=== PATIENT | female | born 1935 | race Caucasian/White ===

== ENCOUNTER 2017-04-25 06:16 | Emergency (ER) | payer MEDICARE ==
--- NOTE | 2017-04-25 06:48 | EDM.PDOC ---
ED HPI GENERAL MEDICAL PROBLEM - General Chief Complaint: General Stated Complaint: fall with dizziness Time Seen by Provider: 04/25/17 06:30 Source of Information: Reports: Patient, Family () History Limitations: Reports: No Limitations - History of Present Illness INITIAL COMMENTS - FREE TEXT/NARRATIVE: PT STATES SHE BECAME DIZZY WHILE IN BATHROOM THIS AM AND FELL TO FLOOR. HEARD HER CALLING HIM AND CAME TO HER AID. BELIEVES SHE LOWERED SELF TO FLOOR AND DID NOT FALL FROM STANDING POSITION. HAS CHRONIC DIZZINESS WITH BENDING OVER AND STANDING FROM SEATED POSITION. DENIES CP, SOB, HIP OR BACK PAIN, VISION CHANGES, OR N/V/D. Onset: Gradual Duration: Minutes: Location: Reports: Other (NO PAIN OR SIGNS OF TRAUMA) Associated Symptoms: Reports: No Other Symptoms Right Head Pain Score (Numeric/FACES): 7 - Related Data Allergies Allergy/AdvReac Type Severity Reaction Status Date / Time ciprofloxacin [From Cipro] Allergy Hives Verified 04/25/17 06:31 codeine Allergy Hives Verified 04/25/17 06:31 ibuprofen [From Motrin] Allergy Hives Verified 04/25/17 06:31 morphine Allergy Hives Verified 04/25/17 06:31 rosuvastatin Allergy Cannot Verified 04/25/17 06:31 Remember Sulfa (Sulfonamide Allergy Hives Verified 04/25/17 06:31 Antibiotics) Home Meds: Home Meds Albuterol Sulfate [Albuterol Sulfate HFA] 1 - 2 puff INH Q4HR PRN 12/09/14 [ History] Ipratropium/Albuterol Sulfate [Iprat-Albut 0.5-3(2.5) MG/3 ML] 3 ml NEB Q4H PRN 12/09/14 [History] Potassium Chloride [Klor-Con M20] 20 meq PO DAILY 12/09/14 [History] LORazepam 0.5 mg PO Q8HR PRN #1 tablet 12/24/14 [Rx] Levothyroxine [Synthroid] 50 mcg PO ACBREAKFAST 06/27/16 [History] traMADol HCl [Tramadol HCl] 50 mg PO BID PRN 06/27/16 [History] Aspirin/Acetaminophen/Caffeine [Migraine Relief Caplet] 1 tab PO BID PRN [History] Citalopram [Citalopram HBr] 40 mg PO DAILY 06/28/16 [History] Cephalexin [Keflex] 500 mg PO TID #21 cap 04/25/17 [Rx] Cetirizine [ZyrTEC] 10 mg PO DAILY PRN 04/25/17 [History] Gentamicin Sulfate 1 applic TOP DAILY 04/25/17 [History] Minocycline [Minocin] 100 mg PO BID 04/25/17 [History] Mupirocin Oint [Bactroban Oint] 1 applic TOP DAILY 04/25/17 [History] Ondansetron [IJD: Ondansetron ODT] 4 mg PO DAILY PRN 04/25/17 [History] buPROPion HCl [Wellbutrin Xl] 150 mg PO DAILY 04/25/17 [History] hydrOXYzine HCl [Atarax] 25 mg PO TID PRN 04/25/17 [History] Past Medical History HEENT History: Reports: Cataract, Impaired Vision Cardiovascular History: Reports: Blood Clots/VTE/DVT, Hypertension Respiratory History: Reports: Asthma, Bronchitis, Recurrent Gastrointestinal History: Reports: Cholelithiasis, Diverticulosis Other Gastrointestinal History: heartburn Genitourinary History: Reports: UTI, Recurrent COLLECTION ADMINISTRATOR History: Reports: Fibroids, Musculoskeletal History: Reports: Arthritis Other Musculoskeletal History: compression fx to back x2 3 months ago. Neurological History: Reports: Head Trauma Psychiatric History: Reports: Anxiety, Other (See Below) Other Psychiatric History: H/O possible depression/anxiety quit taking meds Endocrine/Metabolic History: Reports: Hypothyroidism, Obesity/BMI 30+ Dermatologic History: Reports: Other (See Below) Other Dermatologic History: dry/itchy skin. Scratch sanchez to Bilat lower ext, right upper arm, right shoulder blade, lower abdomen. shingles in 2014 - Infectious Disease History Infectious Disease History: Reports: Chicken Pox, Mumps, Shingles - Past Surgical History HEENT Surgical History: Reports: Cataract Surgery Musculoskeletal Surgical History: Reports: Other (See Below) Social & Family History - Tobacco Use Smoking Status *Q: Never Smoker Second Hand Smoke Exposure: No - Caffeine Use Caffeine Use: Reports: Soda, Tea - Alcohol Use Days Per Week of Alcohol Use: 0 - Recreational Drug Use Recreational Drug Use: No - Living Situation & Occupation Living situation: Reports: Occupation: Retired ED ROS GENERAL - Review of Systems Review Of Systems: ROS reveals no pertinent complaints other than HPI. Constitutional: Reports: No Symptoms HEENT: Reports: No Symptoms Respiratory: Reports: No Symptoms Cardiovascular: Reports: No Symptoms Endocrine: Reports: No Symptoms GI/Abdominal: Reports: No Symptoms : Reports: No Symptoms Musculoskeletal: Reports: No Symptoms Skin: Reports: No Symptoms Neurological: Reports: Dizziness. Denies: Syncope, Change in Speech Psychiatric: Reports: No Symptoms Hematologic/Lymphatic: Reports: No Symptoms Immunologic: Reports: No Symptoms ED EXAM, GENERAL - Physical Exam Exam: See Below Exam Limited By: No Limitations General Appearance: Alert, WD/WN, No Apparent Distress Nose: Normal Inspection, Normal Mucosa, No Blood Throat/Mouth: Normal Inspection, Normal Oropharynx, No Airway Compromise Head: Atraumatic, Normocephalic Neck: Normal Inspection. No: Carotid Bruit, Lymphadenopathy (L), Lymphadenopathy (R) Respiratory/Chest: No Respiratory Distress, Lungs Clear, Normal Breath Sounds Cardiovascular: Tachycardia. No: Irregularly Irregular GI/Abdominal: Normal Bowel Sounds, Soft, Non-Tender Back Exam: Normal Inspection. No: CVA Tenderness (L), CVA Tenderness (R) Extremities: Normal Inspection, No Pedal Edema Neurological: Alert, Oriented, CN II-XII Intact, Normal Cognition Psychiatric: Normal Affect, Normal Mood Skin Exam: Warm, Dry, Intact, Normal Color, No Rash Lymphatic: No Adenopathy EKG INTERPRETATION EKG Date: 04/25/17 Time: 06:20 Rhythm: Other (SINUS TACH) Comparison: NA - No Prior EKG EKG Interpretation Comments: REPEAT EKG AT 0955 SHOWS A-FIB 99HR Course - Vital Signs Last Recorded V/S: Last Vital Signs Temp 99 F 04/25/17 06:19 Pulse 134 H 04/25/17 06:19 Resp 13 04/25/17 06:19 BP 132/72 04/25/17 06:19 Pulse Ox 91 L 04/25/17 06:19 - Orders/Labs/Meds Orders: Active Orders 24 hr Category Date Time Status Chest 2V [CR] Stat Exams 04/25/17 06:38 Ordered CBC WITH AUTO DIFF [HEME] Stat Lab 04/25/17 06:37 Ordered COMPREHENSIVE METABOLIC PN,CMP [CHEM] Stat Lab 04/25/17 06:37 Ordered INR,PT,PROTHROMBIN TIME [COAG] Stat Lab 04/25/17 06:37 Ordered PTT,PARTIAL THROMBOPLSTIN TIME [COAG] Stat Lab 04/25/17 06:37 Ordered SEDIMENTATION RATE MANUAL [HEME] Stat Lab 04/25/17 06:37 Ordered T4 FREE [CHEM] Stat Lab 04/25/17 06:39 Ordered TSH ULTRASENSITIVE [CHEM] Stat Lab 04/25/17 06:39 Ordered UA W/MICROSCOPIC [URIN] Stat Lab 04/25/17 06:37 Uncollected - Radiology Interpretation Free Text/Narrative:: CXR SHOWS NO ACUTE PROCESS - Re-Assessments/Exams Free Text/Narrative Re-Assessment/Exam: 04/25/17 09:[address] REINA ABOUT ASYMPTOMATIC NEW ONSET A-FIB. WILL GIVE 25 MG METOPROLOL HERE AND D/C HOME WITH F/U TOMORROW AT [facility]. PT AFEBRILE, NONTOXIC APPEARING, VSS, HR 85-100. DENIES CP OR SOB Departure - Departure Time of Disposition: 09:43 Disposition: Home, Self-Care 01 Condition: Good Clinical Impression: Paroxysmal a-fib UTI (urinary tract infection) Qualifiers: Urinary tract infection type: site unspecified Hematuria presence: without hematuria Qualified Code(s): N39.0 - Urinary tract infection, site not specified - Discharge Information Instructions: Atrial Fibrillation, [id number], Dizziness, Vasovagal Syncope, Adult, Urinary Tract Infection, Adult Additional Instructions: FOLLOW UP WITH DR REINA AT CLINIC TOMORROW - My Orders Last 24 Hours: My Active Orders 04/25/17 06:37 CBC WITH AUTO DIFF [HEME] Stat COMPREHENSIVE METABOLIC PN,CMP [CHEM] Stat INR,PT,PROTHROMBIN TIME [COAG] Stat PTT,PARTIAL THROMBOPLSTIN TIME [COAG] Stat SEDIMENTATION RATE MANUAL [HEME] Stat UA W/MICROSCOPIC [URIN] Stat 04/25/17 06:38 Chest 2V [CR] Stat 04/25/17 06:39 T4 FREE [CHEM] Stat TSH ULTRASENSITIVE [CHEM] Stat - Assessment/Plan Last 24 Hours: My Active Orders 04/25/17 06:37 CBC WITH AUTO DIFF [HEME] Stat COMPREHENSIVE METABOLIC PN,CMP [CHEM] Stat INR,PT,PROTHROMBIN TIME [COAG] Stat PTT,PARTIAL THROMBOPLSTIN TIME [COAG] Stat SEDIMENTATION RATE MANUAL [HEME] Stat UA W/MICROSCOPIC [URIN] Stat 04/25/17 06:38 Chest 2V [CR] Stat 04/25/17 06:39 T4 FREE [CHEM] Stat TSH ULTRASENSITIVE [CHEM] Stat Assessment:: A-FIB Plan: FOLLOW UP AT [facility] TOMORROW
[2017-04-25] MEDS ORDERED: Sodium Chloride 0.9% 1,000 ML IV ONE (07:43)
[2017-04-25] MEDS ORDERED: Metoprolol Succinate 25 MG Tab.ER PO ONE (09:00)
[2017-04-25] MEDS ORDERED: Sodium Chloride 0.9% 500 ML IV SCH (09:15)
[2017-04-25] MEDS ORDERED: Aspirin 81 MG Tab.Chew PO ONE (09:21)
[2017-04-25 09:31] VITALS: BP 114/43
[2017-04-25] MEDS ORDERED: Cephalexin 250 MG Cap PO ONE (09:37)
== END 2017-04-25 10:00 | disposition home or self-care (01) ==
LOC: KA.ED 06:16
DX: I48.0 Paroxysmal atrial fibrillation (principal); N39.0 Urinary tract infection, site not specified; M19.90 Unspecified osteoarthritis, unspecified site; E66.9 Obesity, unspecified; E03.9 Hypothyroidism, unspecified; F41.9 Anxiety disorder, unspecified; I10 Essential (primary) hypertension; Z88.5 Allergy status to narcotic agent; Z88.6 Allergy status to analgesic agent; Z88.1 Allergy status to other antibiotic agents; Z88.2 Allergy status to sulfonamides; Z79.899 Other long term (current) drug therapy; Z79.82 Long term (current) use of aspirin; Z87.440 Personal history of urinary (tract) infections; Z88.8 Allergy status to other drugs, medicaments and biological substances; Z68.36 Body mass index [BMI] 36.0-36.9, adult
CPT/HCPCS: 36415; 71020; 80053; 81001; 84439; 84443; 85025; 85610; 85651; 85730; 87086; 93005; 96360; 96361; 99285; A9270; J7030; J7050; 99284

== ENCOUNTER 2017-05-26 14:20 | Emergency (ER) | payer MEDICARE ==
--- NOTE | 2017-05-26 15:08 | EDM.PDOC ---
ED HPI GENERAL MEDICAL PROBLEM - General Chief Complaint: General Stated Complaint: WEAKNESS Time Seen by Provider: 05/26/17 14:56 Source of Information: Reports: Patient, EMS Notes Reviewed, Family () History Limitations: Reports: No Limitations - History of Present Illness INITIAL COMMENTS - FREE TEXT/NARRATIVE: PATIENT IS AN 81-YEAR-OLD FEMALE WHO PRESENTS VIA EMS FOR COMPLAINT OF WEAKNESS AND SUSPECTED ALTERED MENTAL STATUS. PER , HE STATES THAT OVER THE LAST FEW NIGHTS, SHE HAS WOKEN UP IN THE MIDDLE OF THE NIGHT AND NOT BEEN COMPLETELY COHERENT. SHE WAS SLEEPING THIS AFTERNOON WHEN HER GRANDDAUGHTER CAME TO THE HOUSE. THE GRANDDAUGHTER WOKE HER UP AND SHE SEEMED CONFUSED AND COULDN'T REMEMBER THE GRANDDAUGHTER'S NAME. NO FACIAL DISFIGURATION WAS DESCRIBED BY THE FAMILY. PATIENT DENIES CHEST PAIN, SHORTNESS OF BREATH, HEADACHE, BLURRY VISION, OR NAUSEA AND VOMITING. FAMILY BRINGS UP THE CONCERN THAT MAYBE THE PATIENT NEEDS SHELTER TYPE. DR. PLATT IS HER PRIMARY PHYSICIAN AND VERY FAMILIAR WITH THE PATIENT. Onset: Gradual Quality: Reports: Other (DENIES ANY PAIN) Improves with: Reports: None Worsens with: Reports: None Associated Symptoms: Reports: No Other Symptoms - Related Data Allergies Allergy/AdvReac Type Severity Reaction Status Date / Time ciprofloxacin [From Cipro] Allergy Hives Verified 05/26/17 15:15 codeine Allergy Hives Verified 05/26/17 15:15 ibuprofen [From Motrin] Allergy Hives Verified 05/26/17 15:15 morphine Allergy Hives Verified 05/26/17 15:15 rosuvastatin Allergy Cannot Verified 05/26/17 15:15 Remember Sulfa (Sulfonamide Allergy Hives Verified 05/26/17 15:15 Antibiotics) Home Meds: Home Meds Albuterol Sulfate [Albuterol Sulfate HFA] 1 - 2 puff INH Q4HR PRN 12/09/14 [ History] Ipratropium/Albuterol Sulfate [Iprat-Albut 0.5-3(2.5) MG/3 ML] 3 ml NEB Q4H PRN 12/09/14 [History] Potassium Chloride [Klor-Con M20] 20 meq PO BID 12/09/14 [History] LORazepam 0.5 mg PO Q8HR PRN #1 tablet 12/24/14 [Rx] Levothyroxine [Synthroid] 50 mcg PO ACBREAKFAST 06/27/16 [History] traMADol HCl [Tramadol HCl] 50 mg PO BID PRN 06/27/16 [History] Aspirin/Acetaminophen/Caffeine [Migraine Relief Caplet] 1 tab PO BID PRN [History] Citalopram [Citalopram HBr] 40 mg PO DAILY 06/28/16 [History] Cephalexin [Keflex] 500 mg PO TID #21 cap 04/25/17 [Rx] Cetirizine [ZyrTEC] 10 mg PO DAILY PRN 04/25/17 [History] Gentamicin Sulfate 1 applic TOP DAILY 04/25/17 [History] Minocycline [Minocin] 100 mg PO BID 04/25/17 [History] Mupirocin Oint [Bactroban Oint] 1 applic TOP DAILY 04/25/17 [History] Ondansetron [IJD: Ondansetron ODT] 4 mg PO DAILY PRN 04/25/17 [History] buPROPion HCl [Wellbutrin Xl] 150 mg PO DAILY 04/25/17 [History] hydrOXYzine HCl [Atarax] 25 mg PO TID PRN 04/25/17 [History] Past Medical History HEENT History: Reports: Cataract, Impaired Vision Cardiovascular History: Reports: Blood Clots/VTE/DVT, Hypertension Respiratory History: Reports: Asthma, Bronchitis, Recurrent Gastrointestinal History: Reports: Cholelithiasis, Diverticulosis Other Gastrointestinal History: heartburn Genitourinary History: Reports: UTI, Recurrent COUNTER HELPER History: Reports: Fibroids, Musculoskeletal History: Reports: Arthritis Other Musculoskeletal History: compression fx to back x2 3 months ago. Neurological History: Reports: Head Trauma Psychiatric History: Reports: Anxiety, Other (See Below) Other Psychiatric History: H/O possible depression/anxiety quit taking meds Endocrine/Metabolic History: Reports: Hypothyroidism, Obesity/BMI 30+ Dermatologic History: Reports: Other (See Below) Other Dermatologic History: dry/itchy skin. Scratch sanchez to Bilat lower ext, right upper arm, right shoulder blade, lower abdomen. shingles in 2014 - Infectious Disease History Infectious Disease History: Reports: Chicken Pox, Mumps, Shingles - Past Surgical History HEENT Surgical History: Reports: Cataract Surgery Musculoskeletal Surgical History: Reports: Other (See Below) Social & Family History - Tobacco Use Smoking Status *Q: Never Smoker Second Hand Smoke Exposure: No - Caffeine Use Caffeine Use: Reports: Soda, Tea - Alcohol Use Days Per Week of Alcohol Use: 0 - Recreational Drug Use Recreational Drug Use: No - Living Situation & Occupation Living situation: Reports: Occupation: Retired ED ROS GENERAL - Review of Systems Review Of Systems: ROS reveals no pertinent complaints other than HPI. Constitutional: Reports: Malaise, Weakness, Fatigue HEENT: Reports: No Symptoms Respiratory: Reports: No Symptoms Cardiovascular: Reports: No Symptoms Endocrine: Reports: No Symptoms GI/Abdominal: Reports: No Symptoms : Reports: No Symptoms Musculoskeletal: Reports: No Symptoms Skin: Reports: No Symptoms Neurological: Reports: No Symptoms ED EXAM, GENERAL - Physical Exam Exam: See Below Exam Limited By: No Limitations General Appearance: Alert, WD/WN, No Apparent Distress Eye Exam: Bilateral Eye: Normal Inspection Nose: Normal Inspection, Normal Mucosa, No Blood Throat/Mouth: Normal Inspection, Normal Oropharynx, No Airway Compromise Head: Atraumatic, Normocephalic Respiratory/Chest: No Respiratory Distress, Lungs Clear, Normal Breath Sounds, No Accessory Muscle Use, Chest Non-Tender Cardiovascular: Regular Rate, Rhythm, No Murmur GI/Abdominal: Normal Bowel Sounds, Soft, Non-Tender Back Exam: Normal Inspection. No: CVA Tenderness (L), CVA Tenderness (R) Extremities: Normal Inspection, No Pedal Edema Neurological: Alert, Oriented, CN II-XII Intact, No Motor/Sensory Deficits Psychiatric: Normal Affect, Normal Mood Skin Exam: Warm, Dry, Other (EXTENSIVE BULLOUS PEMPHIGOID LESIONS COVER BODY) Lymphatic: No Adenopathy Course - Orders/Labs/Meds Orders: Active Orders 24 hr Category Date Time Status CBC WITH AUTO DIFF [HEME] Stat Lab 05/26/17 14:58 Ordered COMPREHENSIVE METABOLIC PN,CMP [CHEM] Stat Lab 05/26/17 14:58 Ordered SEDIMENTATION RATE MANUAL [HEME] Stat Lab 05/26/17 14:58 Ordered UA W/MICROSCOPIC [URIN] Stat Lab 05/26/17 14:58 Uncollected - Re-Assessments/Exams Free Text/Narrative Re-Assessment/Exam: 05/26/17 15:44 Patient afebrile, nontoxic appearing, vital signs stable. Discuss case with Dr. Platt. She agreed no reason to admit patient, and patient will follow- up in her office next week as scheduled. Departure - Departure Time of Disposition: 15:45 Disposition: Home, Self-Care 01 Condition: Good Clinical Impression: Depressive disorder, Bullous pemphigoid - Discharge Information Instructions: Bullous Pemphigoid, Weakness, [id number], Failure to Thrive, Adult Referrals: Latoya Avalos PA-C [Primary Care Provider] - Ana Rosa Platt MD [Physician] - Forms: ED Department Discharge Additional Instructions: FOLLOW UP AT [facility] SCHEDULED NEXT WEEK - My Orders Last 24 Hours: My Active Orders 05/26/17 14:58 CBC WITH AUTO DIFF [HEME] Stat COMPREHENSIVE METABOLIC PN,CMP [CHEM] Stat SEDIMENTATION RATE MANUAL [HEME] Stat UA W/MICROSCOPIC [URIN] Stat - Assessment/Plan Last 24 Hours: My Active Orders 05/26/17 14:58 CBC WITH AUTO DIFF [HEME] Stat COMPREHENSIVE METABOLIC PN,CMP [CHEM] Stat SEDIMENTATION RATE MANUAL [HEME] Stat UA W/MICROSCOPIC [URIN] Stat
[2017-05-26 15:14] VITALS: BP 122/53
[2017-05-26] MEDS ORDERED: Sodium Chloride 0.9% 1,000 ML IV ONE (15:17)
[2017-05-26] MEDS ORDERED: Sodium Chloride 0.9% 5 ML Syringe FLUSH PRN (15:17)
[2017-05-26] MEDS ORDERED: Sodium Chloride 0.9% 1,000 ML ONE (15:18)
== END 2017-05-26 16:30 | disposition home or self-care (01) ==
LOC: KA.ED 14:20
DX: F32.9 Major depressive disorder, single episode, unspecified (principal); L12.0 Bullous pemphigoid; I10 Essential (primary) hypertension; F41.9 Anxiety disorder, unspecified; E03.9 Hypothyroidism, unspecified; Z79.82 Long term (current) use of aspirin; Z79.899 Other long term (current) drug therapy; Z88.2 Allergy status to sulfonamides; Z88.5 Allergy status to narcotic agent; Z88.1 Allergy status to other antibiotic agents; Z88.6 Allergy status to analgesic agent; Z88.8 Allergy status to other drugs, medicaments and biological substances
CPT/HCPCS: 80053; 81001; 85025; 85651; 96360; 99285; J7030; 99284

== ENCOUNTER 2017-05-31 15:50 | Inpatient (IN) | payer MEDICARE ==
[2017-05-31] MEDS ORDERED: Ondansetron 4 MG/2 ML SDV IV PRN (15:57)
[2017-05-31] MEDS ORDERED: Sodium Chloride 0.9% 1,000 ML ONE (16:46)
[2017-05-31] MEDS ORDERED: Ondansetron 4 MG/2 ML SDV ONE (16:46)
[2017-05-31] MEDS: Sodium Chloride 0.9% 1,000 ML IV SCH (16:56)
[2017-05-31] MEDS ORDERED: traMADol 50 MG Tab PO PRN (18:00)
[2017-05-31] MEDS ORDERED: Lidocaine 2% Viscous Solution 15 ML Cup PO PRN (18:16)
[2017-05-31] MEDS ORDERED: Acetaminophen 500 MG Tab PO PRN (18:25)
[2017-05-31] MEDS: Melatonin 3 MG Tab PO SCH ×2 (19:25→20:56)
[2017-05-31] MEDS ORDERED: Loperamide 2 MG Cap PO PRN (20:10)
[2017-05-31] MEDS: Metoprolol Tartrate 25 MG Tab PO SCH (20:55)
[2017-05-31] MEDS: Apixaban 5 MG Tab PO SCH (20:55)
[2017-05-31] MEDS: Mupirocin Oint 22 GM Tube TOP SCH (20:56)
[2017-05-31] MEDS: MINOCYCLINE 100 MG PO SCH (20:56)
[2017-05-31] MEDS: Gentamicin 0.1% Crm 15 GM Tube TOP SCH (20:57)
[2017-05-31] MEDS: LORazepam 0.5 MG Tab PO PRN (21:02)
[2017-06-01] MEDS: Sodium Chloride 0.9% 1,000 ML IV SCH ×3 (00:57→18:56)
[2017-06-01] MEDS: Gentamicin 0.1% Crm 15 GM Tube TOP SCH ×2 (08:23→20:44)
[2017-06-01] MEDS: Mupirocin Oint 22 GM Tube TOP SCH ×2 (08:23→20:43)
[2017-06-01] MEDS: Omeprazole 20 MG Cap.CR PO SCH (08:24)
[2017-06-01] MEDS: Apixaban 5 MG Tab PO SCH ×2 (08:24→20:44)
[2017-06-01] MEDS: Levothyroxine 50 MCG Tab PO SCH (08:24)
[2017-06-01] MEDS: Loratadine 10 MG Tab PO SCH (08:25)
[2017-06-01] MEDS: Metoprolol Tartrate 25 MG Tab PO SCH (08:40)
[2017-06-01] MEDS: traMADol 50 MG Tab PO PRN ×3 (08:41→23:13)
[2017-06-01] MEDS: MINOCYCLINE 100 MG PO SCH ×2 (08:41→20:45)
[2017-06-01] MEDS: LORazepam 0.5 MG Tab PO PRN ×2 (08:42→20:46)
[2017-06-01] MEDS: Niacin 500 MG Tab PO SCH (08:46)
[2017-06-01] MEDS ORDERED: ARIPiprazole 5 MG Tab PO SCH (09:00)
[2017-06-01] MEDS ORDERED: predniSONE 10 MG Tab PO SCH (09:00)
--- NOTE | 2017-06-01 10:16 | PCM.PN ---
- General Info Date of Service: 06/01/17 Functional Status: Reports: Pain Controlled, Urinating. Denies: Ambulating - Review of Systems General: Reports: Weakness, Malaise. Denies: Fever, Chills, Night Sweats HEENT: Reports: No Symptoms Pulmonary: Reports: Cough Cardiovascular: Denies: Chest Pain, Edema Gastrointestinal: Denies: Diarrhea, Difficulty Swallowing, Nausea, Vomiting Genitourinary: Reports: No Symptoms Skin: Reports: Pruritis, Rash, Other (quite diffuse) Neurological: Reports: Difficulty Walking, Weakness. Denies: Confusion, Numbness, Tingling, Tremors, Trouble Speaking, Change in Speech Psychiatric: Reports: Depression (profound) - Patient Data Vitals - Most Recent: Last Vital Signs Temp 98.8 F 06/01/17 06:36 Pulse 78 06/01/17 06:36 Resp 18 06/01/17 06:36 BP 93/40 L 06/01/17 06:36 Pulse Ox 97 06/01/17 06:36 Weight - Most Recent: 196 lb 9.6 oz I&O - Last 24 Hours: Intake & Output 05/31/17 06/01/17 06/01/17 22:59 06:59 14:59 Intake Total 900 965 Output Total 300 Balance 600 965 Lab Results Last 24 Hours: Laboratory Results - last 24 hr 05/31/17 05/31/17 06/01/17 Range/Units 16:15 18:14 06:33 WBC (5.0-10.0) 10^3/uL RBC (3.80-5.50) 10^6/uL Hgb (12.0-16.0) g/dL Hct (37.0-47.0) % MCV (82.0-92.0) fL MCH (27.0-31.0) pg MCHC (32.0-36.0) g/dL RDW (11.5-14.5) % Plt Count (150-300) 10^3/uL MPV (7.4-10.4) fL Neut % (Auto) (50.0-70.0) % Lymph % (Auto) (20.0-40.0) % [place] % (Auto) (2.0-8.0) % Eos % (Auto) (1.0-3.0) % Baso % (Auto) (0.0-1.0) % Neut # (Auto) (2.5-7.0) 10^3/uL Lymph # (Auto) (1.0-4.0) 10^3/uL [place] # (Auto) (0.1-0.8) 10^3/uL Eos # (Auto) (0.1-0.3) 10^3/uL Baso # (Auto) (0.0-0.1) 10^3/uL Sodium (136-145) mmol/L Potassium (3.3-5.3) mmol/L Chloride (98-115) mmol/L Carbon Dioxide (21.0-32.0) mmol/L BUN (6-25) mg/dL Creatinine (0.51-1.17) mg/dL Est Cr Clr Drug Dosing mL/min Estimated GFR (MDRD) mL/min Glucose (70-110) mg/dL POC Glucose 108 H 53 L (74-106) mg/dl Calcium (8.7-10.3) mg/dL Total Bilirubin (0.2-1.0) mg/dL AST (15-37) U/L ALT (12-78) U/L Alkaline Phosphatase (46-116) IU/L Total Protein (6.4-8.2) g/dL Albumin (3.00-4.80) g/dL Specimen Type Urinvoid Urine Color Yellow (YELLOW) Urine Appearance Slightly cloudy H (CLEAR) Urine pH 5.0 (5.0-9.0) Ur Specific [place] 1.025 (1.005-1.030) Urine Protein Negative (NEGATIVE) mg/dL Urine Glucose (UA) Negative (NEGATIVE) mg/dL Urine Ketones Negative (NEGATIVE) mg/dL Urine Occult Blood Moderate H (NEGATIVE) Urine Nitrite Negative (NEGATIVE) Urine Bilirubin Negative (NEGATIVE) Urine Urobilinogen 0.2 (0.2-1.0) E.U./dL Ur Leukocyte Esterase Negative (NEGATIVE) Urine RBC 0-5 /HPF Urine WBC 0-5 /HPF Ur Epithelial Cells Moderate H /LPF Urine Bacteria Few (NONE TO FEW) /HPF 06/01/17 06/01/17 06/01/17 Range/Units 07:00 07:20 07:20 WBC 6.8 (5.0-10.0) 10^3/uL RBC 3.88 (3.80-5.50) 10^6/uL Hgb 11.1 L (12.0-16.0) g/dL Hct 35.3 L (37.0-47.0) % MCV 91.0 (82.0-92.0) fL MCH 28.7 (27.0-31.0) pg MCHC 31.5 L (32.0-36.0) g/dL RDW 15.7 H (11.5-14.5) % Plt Count 320 H (150-300) 10^3/uL MPV 6.9 L (7.4-10.4) fL Neut % (Auto) 63.3 (50.0-70.0) % Lymph % (Auto) 23.1 (20.0-40.0) % [place] % (Auto) 9.0 H (2.0-8.0) % Eos % (Auto) 4.3 H (1.0-3.0) % Baso % (Auto) 0.3 (0.0-1.0) % Neut # (Auto) 4.3 (2.5-7.0) 10^3/uL Lymph # (Auto) 1.6 (1.0-4.0) 10^3/uL [place] # (Auto) 0.6 (0.1-0.8) 10^3/uL Eos # (Auto) 0.3 (0.1-0.3) 10^3/uL Baso # (Auto) 0.0 (0.0-0.1) 10^3/uL Sodium 141 (136-145) mmol/L Potassium 3.7 (3.3-5.3) mmol/L Chloride 110 (98-115) mmol/L Carbon Dioxide 23.0 (21.0-32.0) mmol/L BUN 22 (6-25) mg/dL Creatinine 1.07 (0.51-1.17) mg/dL Est Cr Clr Drug Dosing 30.06 mL/min Estimated GFR (MDRD) 49 mL/min Glucose 87 (70-110) mg/dL POC Glucose 70 L (74-106) mg/dl Calcium 7.7 L (8.7-10.3) mg/dL Total Bilirubin 0.4 (0.2-1.0) mg/dL AST 30 (15-37) U/L ALT 24 (12-78) U/L Alkaline Phosphatase 98 (46-116) IU/L Total Protein 4.3 L (6.4-8.2) g/dL Albumin 1.25 L (3.00-4.80) g/dL Specimen Type Urine Color (YELLOW) Urine Appearance (CLEAR) Urine pH (5.0-9.0) Ur Specific [place] (1.005-1.030) Urine Protein (NEGATIVE) mg/dL Urine Glucose (UA) (NEGATIVE) mg/dL Urine Ketones (NEGATIVE) mg/dL Urine Occult Blood (NEGATIVE) Urine Nitrite (NEGATIVE) Urine Bilirubin (NEGATIVE) Urine Urobilinogen (0.2-1.0) E.U./dL Ur Leukocyte Esterase (NEGATIVE) Urine RBC /HPF Urine WBC /HPF Ur Epithelial Cells /LPF Urine Bacteria (NONE TO FEW) /HPF Med Orders - Current: Current Medications Acetaminophen (Tylenol Extra Strength) 500 mg PO Q4H PRN PRN Reason: Pain Last Admin: 05/31/17 19:40 Dose: 500 mg Albuterol/Ipratropium (Duoneb 3.0-0.5 Mg/3 Ml) 3 ml NEB Q4H PRN PRN Reason: Shortness of Breath Apixaban (Eliquis) 5 mg PO BID [facility] Last Admin: 06/01/17 08:24 Dose: 5 mg Aripiprazole (Abilify) 5 mg PO QAM [facility] Last Admin: 06/01/17 08:24 Dose: 5 mg Gentamicin Sulfate (Gentamicin 0.1%) 0 gm TOP BID [facility] Last Admin: 06/01/17 08:23 Dose: 1 applic Hydroxyzine HCl (Atarax) 25 mg PO Q6H PRN PRN Reason: Itching Sodium Chloride (Normal Saline) 1,000 mls @ 125 mls/hr IV ASDIRECTED [facility] Last Admin: 06/01/17 08:23 Dose: 125 mls/hr Levothyroxine Sodium (Synthroid) 100 mcg PO ACBREAKFAST [facility] Last Admin: 06/01/17 08:24 Dose: 100 mcg Lidocaine HCl (Xylocaine 2% Viscous) 15 ml PO Q4H PRN PRN Reason: Pain Loperamide HCl (Imodium) 2 mg PO Q4H PRN PRN Reason: Diarrhea Loratadine (Claritin) 10 mg PO DAILY [facility] Last Admin: 06/01/17 08:25 Dose: 10 mg Lorazepam (Ativan) 0.5 mg PO BID PRN PRN Reason: Anxiety Last Admin: 06/01/17 08:42 Dose: 0.5 mg Melatonin (Melatonin) 3 mg PO BEDTIME [facility] Last Admin: 05/31/17 20:56 Dose: 3 mg Metoprolol Tartrate (Lopressor) 12.5 mg PO BID [facility] Last Admin: 06/01/17 08:40 Dose: 12.5 mg Mupirocin (Bactroban Oint) 0 gm TOP BID [facility] Last Admin: 06/01/17 08:23 Dose: 1 applic Niacin (Niacin) 500 mg PO DAILY [facility] Last Admin: 06/01/17 08:46 Dose: 500 mg Omeprazole (Omeprazole) 20 mg PO DAILY [facility] Last Admin: 06/01/17 08:24 Dose: 20 mg Ondansetron HCl (Zofran) 4 mg IV Q6H PRN PRN Reason: Nausea/Vomiting Minocycline [Minocin ] 100 MgOwn Med * 1 each PO BID [facility] Last Admin: 06/01/17 08:41 Dose: 1 each Prednisone (Prednisone) 10 mg PO DAILY [facility] Last Admin: 06/01/17 08:24 Dose: 10 mg Senna/Docusate Sodium (Senna Plus) 1 tab PO BID PRN PRN Reason: Constipation Tramadol HCl (Ultram) 50 mg PO Q6HR PRN PRN Reason: Pain Last Admin: 06/01/17 08:41 Dose: 50 mg Discontinued Medications Sodium Chloride (Normal Saline) Confirm Administered Dose 1,000 mls @ as directed .ROUTE .STK-MED ONE Stop: 05/31/17 16:47 Last Admin: 05/31/17 18:09 Dose: Not Given Ondansetron HCl (Zofran) Confirm Administered Dose 4 mg .ROUTE .STK-MED ONE Stop: 05/31/17 16:47 Last Admin: 05/31/17 18:09 Dose: Not Given Tramadol HCl (Ultram) 50 mg PO Q8H PRN PRN Reason: Pain Last Admin: 05/31/17 18:48 Dose: 50 mg - Exam Quality Assessment: Supplemental Oxygen General: Alert, Oriented, Other (somewhat uncooperative, ) HEENT: Pupils Equal, Pupils Reactive, EOMI, Mucous Membr. Moist/[place] Neck: Supple Lungs: Clear to Auscultation, Normal Respiratory Effort Cardiovascular: Regular Rate, Regular Rhythm, Other (history of atrial fibrillation) GI/Abdominal Exam: Normal Bowel Sounds, Soft, Non-Tender, No Organomegaly, No Distention, No Abnormal Bruit, No Mass, Pelvis Stable Back Exam: No: CVA Tenderness (R) Skin: Other Psy/Mental Status: Alert, Depressed (profound depression) - Problem List Review Problem List Initiated/Reviewed/Updated: Yes - Plan Plan:: BRIEF HISTORY Patient with self-care neglect with concomittent depression was admitted due debilitation, dehydration and mostly worsening erythematous exacerbation of bullous pemphigoid. Impression/plan Bullous Pemphigoid INTEGUMENTARY ASSESSMENT Diffuse weeping, moist, prutitic vesicles and bulla with erythematous skin eruptions throughout her body including but not limited to back, breast, abdomen arms lower extremities, auricles of right ear newly developing blister forming bottom of right foot. Many blisters have burst with noticeable skin erosion with notable inflammatory hyperpigmentation--seems to be worse in flexural compartments--pictures taken. must control her associated pruritus. Clip fingernails, hydroxyzine, may have to wrap her hands to prevent her scratching. increase oral steroids to 20 mg by mouth daily since new blister formation. continue with coverage with minocycline and Niacinamide, Hibiclens shower Other chronic medical conditions History of atrial fibrillation, currently NSR, [id number], ,factor Xa inhibitor twice a day. Creatinine acceptable, MAP this morning low at 60, change metoprolol tartrate to low-dose succinatedecrease beta ilana. Medication risks versus benefit was discussed with patient/family hypotension, decreased beta ilana, change to daily for improve patient compliance. Start tomorrow. Depression, profound, monotherapy Abilify was recently increased. Dehydration, improved, Decrease fluids to 100 mL per hour encourage by mouth fluids. Will treat stomatitis Prophylaxis probiotics since on multiple Abx, Hypoalbuminemia, profound, lagging indicator, nutritional consultation. pain control, change Tylenol to scheduled. Tramadol when necessary before shower , avoid sedating opioids if all possible. hypothyroidism, on thyroid replacement therapy. Obesity, Self-care neglect, confounded by profound depression, Abilify recently increased , majorly contributory for medication compliance. Component of self-care neglect. DVT prophylaxis, cross covered with Apixaban. Creatinine acceptable immunocompromised host, corticosteroids and integumentary breakdown. CODE STATUS, DO NOT RESUSCITATE Long discussion with family, long-term plan discussed, discussion regarding skilled services possibly here with long-term plan of likely going home if PTU renders qualifying stay, although not ideal from a medical/social standpoint for her to go home. Daughter contemplating taking her to [place] to be primary caregiver, Family will discuss this with 7th grade social studies teacher. Vulnerable report is a possible option and this was discussed with family. long discussion with patient regarding treatment goals, not refusing treatments from nurses etc. today, Hibiclens shower, in chair, Monitor for systemic infections. social service, PT and nutritional consult placed.
[2017-06-01] MEDS ORDERED: predniSONE 10 MG Tab PO ONE (12:00)
[2017-06-01] MEDS: Acetaminophen 500 MG Tab PO SCH ×4 (12:06→23:13)
[2017-06-01] MEDS: B.Bifidum/B.Longum/L.Acidophilus/L.Rhamnosus (Probiotic) Cap PO SCH (12:07)
[2017-06-01] MEDS ORDERED: ARIPiprazole 5 MG Tab PO ONE (13:00)
[2017-06-01] MEDS: LIDOCAINE VISC 2% PO SCH ×9 (13:59→17:52)
[2017-06-01] MEDS: [UNRECOGNIZED DRUG - OTHER] PO SCH ×9 (13:59→17:52)
[2017-06-01] MEDS: Albuterol/Ipratropium 3.0-0.5 MG/3 ML Neb Soln NEB PRN (17:01)
[2017-06-01] MEDS: hydrOXYzine HCl 25 MG Tab PO PRN ×2 (17:28→23:13)
[2017-06-01] MEDS: Melatonin 3 MG Tab PO SCH (20:45)
[2017-06-02] MEDS: Acetaminophen 500 MG Tab PO SCH ×6 (02:59→23:18)
[2017-06-02] MEDS: Sodium Chloride 0.9% 1,000 ML IV SCH ×2 (04:49→16:37)
[2017-06-02] MEDS: hydrOXYzine HCl 25 MG Tab PO PRN (06:45)
[2017-06-02] MEDS: LIDOCAINE VISC 2% PO SCH ×6 (07:58→17:39)
[2017-06-02] MEDS: [UNRECOGNIZED DRUG - OTHER] PO SCH ×6 (07:58→17:39)
[2017-06-02] MEDS: Levothyroxine 50 MCG Tab PO SCH (07:58)
[2017-06-02] MEDS ORDERED: predniSONE 20 MG Tab PO SCH (08:00)
[2017-06-02] MEDS: MINOCYCLINE 100 MG PO SCH ×2 (09:02→20:50)
[2017-06-02] MEDS: Gentamicin 0.1% Crm 15 GM Tube TOP SCH ×2 (09:03→20:51)
[2017-06-02] MEDS: Niacin 500 MG Tab PO SCH (09:03)
[2017-06-02] MEDS: Omeprazole 20 MG Cap.CR PO SCH (09:03)
[2017-06-02] MEDS: Loratadine 10 MG Tab PO SCH (09:04)
[2017-06-02] MEDS: Apixaban 5 MG Tab PO SCH ×2 (09:04→20:49)
[2017-06-02] MEDS: ARIPiprazole 5 MG Tab PO SCH (09:05)
[2017-06-02] MEDS: Mupirocin Oint 22 GM Tube TOP SCH ×2 (09:06→20:50)
[2017-06-02] MEDS: traMADol 50 MG Tab PO PRN ×3 (09:10→22:06)
--- NOTE | 2017-06-02 09:31 | PCM.PN ---
- General Info Date of Service: 06/02/17 Functional Status: Reports: Tolerating Diet, Ambulating (Although new blister formation bottom right foot, patient is ambulatory for toileting) - Review of Systems General: Reports: Weakness. Denies: Fever, Fatigue, Malaise, Chills, Night Sweats HEENT: Reports: No Symptoms Pulmonary: Reports: No Symptoms Cardiovascular: Reports: Chest Pain (Chest wall pain right side) Gastrointestinal: Denies: Constipation, Decreased Appetite, Diarrhea, Difficulty Swallowing, Nausea, Vomiting Genitourinary: Denies: Dysuria, Frequency, Burning, Pain, Urgency, Hematuria Musculoskeletal: Reports: Other (Tenderness right-sided chest wall) Skin: Reports: Other (Diffuse weeping, moist, prutitic vesicles and bulla with erythematous skin eruptions throughout her body including but not limited to back, breast, abdomen arms lower extremities, auricles of right ear newly developing blister forming bottom of right foot. Many blisters have burst with noticeable skin erosion with notable inflammatory hyperpigmentation, exacerbated in flexural compartments) Neurological: Reports: Pre-Existing Deficit, Difficulty Walking, Weakness. Denies: Tremors, Change in Speech Psychiatric: Reports: Depression, Mood Lability. Denies: Agitation - Patient Data Vitals - Most Recent: Last Vital Signs Temp 98.4 F 06/02/17 06:58 Pulse 84 06/02/17 06:58 Resp 20 06/02/17 06:58 BP 92/60 06/02/17 06:58 Pulse Ox 95 06/02/17 09:00 Weight - Most Recent: 196 lb 9.6 oz I&O - Last 24 Hours: Intake & Output 06/01/17 06/02/17 06/02/17 22:59 06:59 14:59 Intake Total 964 1026 Output Total 600 Balance 964 426 Lab Results Last 24 Hours: Laboratory Results - last 24 hr 06/01/17 06/02/17 06/02/17 Range/Units 17:27 06:37 07:23 POC Glucose 197 H 58 L 80 (74-106) mg/dl Jame Results Last 24 Hours: Microbiology 05/31/17 16:15 Urine Culture - Preliminary Urine, Voided Med Orders - Current: Current Medications Acetaminophen (Tylenol Extra Strength) 500 mg PO Q4HR [facility] Last Admin: 06/02/17 06:46 Dose: 500 mg Albuterol/Ipratropium (Duoneb 3.0-0.5 Mg/3 Ml) 3 ml NEB Q4H PRN PRN Reason: Shortness of Breath Last Admin: 06/01/17 17:01 Dose: 3 ml Apixaban (Eliquis) 5 mg PO BID [facility] Last Admin: 06/02/17 09:04 Dose: 5 mg Aripiprazole (Abilify) 10 mg PO QAM [facility] Last Admin: 06/02/17 09:05 Dose: 10 mg Al Hydroxide/Mg Hydroxide 40 ml/ Diphenhydramine HCl 12.5 mg/ Lidocaine HCl 40 ml 0 ml PO BIDAC [facility] Last Admin: 06/02/17 07:58 Dose: 15 ml Gentamicin Sulfate (Gentamicin 0.1%) 0 gm TOP BID [facility] Last Admin: 06/02/17 09:03 Dose: 1 applic Hydroxyzine HCl (Atarax) 25 mg PO Q6H PRN PRN Reason: Itching Last Admin: 06/02/17 06:45 Dose: 25 mg Sodium Chloride (Normal Saline) 1,000 mls @ 100 mls/hr IV ASDIRECTED [facility] Last Admin: 06/02/17 04:49 Dose: 100 mls/hr Lactobacillus Acidophilus/Rhamnosus (Multi-[place] Plus) 1 cap PO DAILY@1200 [facility] Last Admin: 06/01/17 12:07 Dose: 1 cap Levothyroxine Sodium (Synthroid) 100 mcg PO ACBREAKFAST [facility] Last Admin: 06/02/17 07:58 Dose: 100 mcg Lidocaine HCl (Xylocaine 2% Viscous) 15 ml PO Q4H PRN PRN Reason: Pain Loperamide HCl (Imodium) 2 mg PO Q4H PRN PRN Reason: Diarrhea Loratadine (Claritin) 10 mg PO DAILY [facility] Last Admin: 06/02/17 09:04 Dose: 10 mg Lorazepam (Ativan) 0.5 mg PO BID PRN PRN Reason: Anxiety Last Admin: 06/01/17 20:46 Dose: 0.5 mg Melatonin (Melatonin) 3 mg PO BEDTIME [facility] Last Admin: 06/01/17 20:45 Dose: 3 mg Metoprolol Succinate (Toprol Xl) 12.5 mg PO BEDTIME [facility] Mupirocin (Bactroban Oint) 0 gm TOP BID [facility] Last Admin: 06/02/17 09:06 Dose: 1 applic Niacin (Niacin) 500 mg PO DAILY [facility] Last Admin: 06/02/17 09:03 Dose: 500 mg Omeprazole (Omeprazole) 20 mg PO DAILY [facility] Last Admin: 06/02/17 09:03 Dose: 20 mg Ondansetron HCl (Zofran) 4 mg IV Q6H PRN PRN Reason: Nausea/Vomiting Minocycline [Minocin ] 100 MgOwn Med * 1 each PO BID [facility] Last Admin: 06/02/17 09:02 Dose: 1 each Prednisone (Prednisone) 20 mg PO WITHBREAKFAST [facility] Last Admin: 06/02/17 09:06 Dose: 20 mg Senna/Docusate Sodium (Senna Plus) 1 tab PO BID PRN PRN Reason: Constipation Tramadol HCl (Ultram) 50 mg PO Q6HR PRN PRN Reason: Pain Last Admin: 06/02/17 09:10 Dose: 50 mg Discontinued Medications Acetaminophen (Tylenol Extra Strength) 500 mg PO Q4H PRN PRN Reason: Pain Last Admin: 05/31/17 19:40 Dose: 500 mg Aripiprazole (Abilify) 5 mg PO QAM [facility] Last Admin: 06/01/17 08:24 Dose: 5 mg Aripiprazole (Abilify) 5 mg PO ONETIME ONE Stop: 06/01/17 13:01 Last Admin: 06/01/17 14:06 Dose: 5 mg Al Hydroxide/Mg Hydroxide 40 ml/ Diphenhydramine HCl 12.5 mg/ Lidocaine HCl 40 ml 0 ml PO BID [facility] Last Admin: 06/01/17 14:06 Dose: 1 each Sodium Chloride (Normal Saline) 1,000 mls @ 125 mls/hr IV ASDIRECTED [facility] Last Admin: 06/01/17 08:23 Dose: 125 mls/hr Sodium Chloride (Normal Saline) Confirm Administered Dose 1,000 mls @ as directed .ROUTE .STK-MED ONE Stop: 05/31/17 16:47 Last Admin: 05/31/17 18:09 Dose: Not Given Metoprolol Tartrate (Lopressor) 12.5 mg PO BID [facility] Last Admin: 06/01/17 08:40 Dose: 12.5 mg Ondansetron HCl (Zofran) Confirm Administered Dose 4 mg .ROUTE .STK-MED ONE Stop: 05/31/17 16:47 Last Admin: 05/31/17 18:09 Dose: Not Given Prednisone (Prednisone) 10 mg PO DAILY [facility] Last Admin: 06/01/17 08:24 Dose: 10 mg Prednisone (Prednisone) 10 mg PO ONETIME ONE Stop: 06/01/17 12:01 Last Admin: 06/01/17 12:07 Dose: 10 mg Tramadol HCl (Ultram) 50 mg PO Q8H PRN PRN Reason: Pain Last Admin: 05/31/17 18:48 Dose: 50 mg - Exam Quality Assessment: Skin Breakdown (Diffuse and profound skin breakdown). No: Supplemental Oxygen General: Alert, Oriented, Cooperative, Mild Distress Lungs: Clear to Auscultation, Normal Respiratory Effort Cardiovascular: Regular Rate, Regular Rhythm GI/Abdominal Exam: Soft Extremities: Pedal Edema Peripheral Pulses: 2+: Radial (L), Radial (R) Skin: Other (Diffuse and profound skin breakdown.) Neurological: No New Focal Deficit Psy/Mental Status: Labile Mood, Depressed - Problem List Review Problem List Initiated/Reviewed/Updated: Yes - My Orders Last 24 Hours: My Active Orders 06/01/17 10:35 Sodium Chloride 0.9% [Normal Saline] 1,000 ml IV ASDIRECTED 06/01/17 11:09 Shower [May Shower] [RC] DAILY 06/01/17 11:15 Acetaminophen [Tylenol Extra Strength] 500 mg PO Q4HR 06/01/17 12:00 B.Bif/B.Long/L.Acidoph/L.Rhamn [Multi-[place] Plus] 1 cap PO DAILY@1200 06/01/17 17:30 Alum Hydrox/Mag Hydrox/Simeth [Mag-Al Plus] 40 ml diphenhydrAMINE [Benadryl] 12.5 mg Lidocaine 2% [Xylocaine 2% Viscous] 40 ml PO BIDAC 06/02/17 08:00 predniSONE 20 mg PO WITHBREAKFAST 06/02/17 08:56 Supplement (Dietary) [Dietary Supplements] [RC] TID 06/02/17 09:00 ARIPiprazole [Abilify] 10 mg PO QAM 06/02/17 21:00 Metoprolol Succinate [Toprol XL] 12.5 mg PO BEDTIME - Plan Plan:: BRIEF HISTORY Patient with self-care neglect with concomittent depression was admitted due debilitation, dehydration and mostly worsening erythematous exacerbation of bullous pemphigoid. See scanned H&P for greater details Impression/plan Bullous Pemphigoid INTEGUMENTARY ASSESSMENT Diffuse weeping, newly forming, moist, prutitic vesicles and bulla with erythematous skin eruptions throughout her body including but not limited to back, breast, abdomen, arms, lower extremities, auricles of right ear, along with newly developing blister forming bottom of right foot. Many blisters have burst with noticeable skin erosion with notable inflammatory hyperpigmentation-- seems to be worse in flexural compartments--pictures taken. must control her associated pruritus. Fingernails have been clipped, hands wrapped in gauze, hydroxyzine, yesterday increase PO prednisone to 20 mg by mouth daily since new blister formation. continue with coverage with minocycline, gentamicin and Niacinamide, will attempt Hibiclens shower Other chronic medical conditions History of atrial fibrillation, currently NSR, [id number], ,factor Xa inhibitor twice a day. Creatinine acceptable, MAP this morning low at 60, change metoprolol tartrate to low-dose succinate decrease beta ilana. Medication risks versus benefit was discussed with patient/family hypotension, decreased beta ilana, change to daily for improve patient compliance. Start tomorrow. Depression, profound, monotherapy Abilify was recently increased. Dehydration, improved, Decrease fluids to 100 mL per hour encourage by mouth fluids. Will treat stomatitis Prophylaxis probiotics since on multiple Abx, Hypoalbuminemia, profound, lagging indicator however can have high risk mortality, nutritional consultation. likely combination of protein malnutrition and degradation due to open integumentary skin due to autoimmune inflammatory state, UA neg for proteinuria, nutritional supplementation. Monitor closely for fluid accumulation/retention. Not appropriate for IV albumin pain control, change Tylenol to scheduled. Tramadol when necessary before shower , avoid sedating opioids if all possible. hypothyroidism, on thyroid replacement therapy. Obesity, Self-care neglect, confounded by profound depression, Abilify recently increased , majorly contributory for medication compliance. Component of self-care neglect. DVT prophylaxis, cross covered with Apixaban. Creatinine acceptable immunocompromised host, corticosteroids and integumentary breakdown. CODE STATUS, DO NOT RESUSCITATE Long discussion with family, long-term plan discussed, discussion regarding skilled services possibly here with long-term plan of likely going home if PTU renders qualifying stay, although not ideal from a medical/social standpoint for her to go home. Daughter contemplating taking her to [place] to be primary caregiver, Family will discuss this with high school social science teacher. Vulnerable report is a possible option and this was discussed with family. long discussion with patient regarding treatment goals, not refusing treatments from nurses etc. today, Hibiclens shower, in chair, Monitor for systemic infections. social service, PT and nutritional consult placed.
[2017-06-02] MEDS: B.Bifidum/B.Longum/L.Acidophilus/L.Rhamnosus (Probiotic) Cap PO SCH (11:21)
[2017-06-02] MEDS ORDERED: predniSONE 20 MG Tab PO ONE (15:06)
[2017-06-02] MEDS: Melatonin 3 MG Tab PO SCH (20:49)
[2017-06-02] MEDS ORDERED: Metoprolol Succinate 25 MG Tab.ER PO SCH (21:00)
[2017-06-02] MEDS: LORazepam 0.5 MG Tab PO PRN (22:06)
[2017-06-03] MEDS: Acetaminophen 500 MG Tab PO SCH ×6 (03:17→22:35)
[2017-06-03] MEDS: Sodium Chloride 0.9% 1,000 ML IV SCH (06:49)
[2017-06-03 07:44] LABS: CHLORIDE,CL 110 mmol/L (98-115); SODIUM,NA 141 mmol/L (136-145)
[2017-06-03] MEDS: Levothyroxine 50 MCG Tab PO SCH (09:09)
[2017-06-03] MEDS: LIDOCAINE VISC 2% PO SCH ×6 (09:10→17:29)
[2017-06-03] MEDS: [UNRECOGNIZED DRUG - OTHER] PO SCH ×6 (09:10→17:29)
[2017-06-03] MEDS: ARIPiprazole 5 MG Tab PO SCH (09:10)
[2017-06-03] MEDS: Niacin 500 MG Tab PO SCH (09:11)
[2017-06-03] MEDS: Apixaban 5 MG Tab PO SCH ×2 (09:11→20:59)
[2017-06-03] MEDS: Loratadine 10 MG Tab PO SCH (09:11)
[2017-06-03] MEDS: Omeprazole 20 MG Cap.CR PO SCH (09:11)
[2017-06-03] MEDS: MINOCYCLINE 100 MG PO SCH ×2 (09:12→21:00)
[2017-06-03] MEDS: predniSONE 20 MG Tab PO SCH (09:12)
[2017-06-03] MEDS: traMADol 50 MG Tab PO PRN ×2 (09:13→21:01)
[2017-06-03] MEDS: Mupirocin Oint 22 GM Tube TOP SCH ×2 (09:21→09:41)
--- NOTE | 2017-06-03 09:28 | PCM.PN ---
- General Info Date of Service: 06/03/17 Functional Status: Reports: Tolerating Diet, Ambulating (In room ambulating with assistance), New Symptoms (New symptoms include right sidewall chest pain on palpation--started upon being picked up by son), Incentive Spirometry. Denies: Pain Controlled - Review of Systems General: Reports: Weakness. Denies: Fever HEENT: Reports: No Symptoms Pulmonary: Reports: No Symptoms Cardiovascular: Reports: Edema Gastrointestinal: Denies: Abdominal Pain, Constipation, Decreased Appetite, Diarrhea, Difficulty Swallowing, Nausea, Vomiting Genitourinary: Reports: No Symptoms Musculoskeletal: Reports: Other (Right-sided rib pain) Skin: Reports: Other (Diffuse weeping, moist, prutitic vesicles and bulla with erythematous skin eruptions throughout her body including but not limited to back, breast, abdomen arms lower extremities, auricles of right ear newly developing blister forming bottom of right foot. Many blisters have burst with noticeable skin erosion with notable inflammatory hyperpigmentation--seems to be worse in flexural compartments--however seems to be drying up and some improvement) Neurological: Reports: Pre-Existing Deficit, Difficulty Walking, Weakness, Gait Disturbance. Denies: Numbness, Paresthesia, Tingling, Tremors, Trouble Speaking , Change in Speech Psychiatric: Reports: Mood Lability - Patient Data Vitals - Most Recent: Last Vital Signs Temp 98.6 F 06/03/17 06:20 Pulse 89 06/03/17 06:20 Resp 20 06/03/17 06:20 BP 110/66 06/03/17 06:20 Pulse Ox 95 06/03/17 06:20 Weight - Most Recent: 196 lb 9.6 oz I&O - Last 24 Hours: Intake & Output 06/02/17 06/03/17 06/03/17 22:59 06:59 14:59 Intake Total 959 551 Output Total 575 300 Balance 384 251 Lab Results Last 24 Hours: Laboratory Results - last 24 hr 06/02/17 06/03/17 06/03/17 Range/Units 17:03 06:48 07:15 WBC (5.0-10.0) 10^3/uL RBC (3.80-5.50) 10^6/uL Hgb (12.0-16.0) g/dL Hct (37.0-47.0) % MCV (82.0-92.0) fL MCH (27.0-31.0) pg MCHC (32.0-36.0) g/dL RDW (11.5-14.5) % Plt Count (150-300) 10^3/uL MPV (7.4-10.4) fL Neut % (Auto) (50.0-70.0) % Lymph % (Auto) (20.0-40.0) % Chase % (Auto) (2.0-8.0) % Eos % (Auto) (1.0-3.0) % Baso % (Auto) (0.0-1.0) % Neut # (Auto) (2.5-7.0) 10^3/uL Lymph # (Auto) (1.0-4.0) 10^3/uL Chase # (Auto) (0.1-0.8) 10^3/uL Eos # (Auto) (0.1-0.3) 10^3/uL Baso # (Auto) (0.0-0.1) 10^3/uL Sodium 141 (136-145) mmol/L Potassium 3.8 (3.3-5.3) mmol/L Chloride 110 (98-115) mmol/L Carbon Dioxide 22.1 (21.0-32.0) mmol/L BUN 19 (6-25) mg/dL Creatinine 0.69 (0.51-1.17) mg/dL Est Cr Clr Drug Dosing 46.62 mL/min Estimated GFR (MDRD) > 60 mL/min Glucose 94 (70-110) mg/dL POC Glucose 180 H 93 (74-106) mg/dl Calcium 7.5 L (8.7-10.3) mg/dL Total Bilirubin 0.2 (0.2-1.0) mg/dL AST 24 (15-37) U/L ALT 31 (12-78) U/L Alkaline Phosphatase 115 (46-116) IU/L Total Protein 4.5 L (6.4-8.2) g/dL Albumin 1.25 L (3.00-4.80) g/dL 06/03/17 Range/Units 07:15 WBC 5.4 (5.0-10.0) 10^3/uL RBC 3.80 (3.80-5.50) 10^6/uL Hgb 11.0 L (12.0-16.0) g/dL Hct 34.7 L (37.0-47.0) % MCV 91.2 (82.0-92.0) fL MCH 28.8 (27.0-31.0) pg MCHC 31.6 L (32.0-36.0) g/dL RDW 16.0 H (11.5-14.5) % Plt Count 319 H (150-300) 10^3/uL MPV 7.1 L (7.4-10.4) fL Neut % (Auto) 72.8 H (50.0-70.0) % Lymph % (Auto) 19.1 L (20.0-40.0) % Chase % (Auto) 7.5 (2.0-8.0) % Eos % (Auto) 0.2 L (1.0-3.0) % Baso % (Auto) 0.4 (0.0-1.0) % Neut # (Auto) 4.0 (2.5-7.0) 10^3/uL Lymph # (Auto) 1.0 (1.0-4.0) 10^3/uL Chase # (Auto) 0.4 (0.1-0.8) 10^3/uL Eos # (Auto) 0.0 L (0.1-0.3) 10^3/uL Baso # (Auto) 0.0 (0.0-0.1) 10^3/uL Sodium (136-145) mmol/L Potassium (3.3-5.3) mmol/L Chloride (98-115) mmol/L Carbon Dioxide (21.0-32.0) mmol/L BUN (6-25) mg/dL Creatinine (0.51-1.17) mg/dL Est Cr Clr Drug Dosing mL/min Estimated GFR (MDRD) mL/min Glucose (70-110) mg/dL POC Glucose (74-106) mg/dl Calcium (8.7-10.3) mg/dL Total Bilirubin (0.2-1.0) mg/dL AST (15-37) U/L ALT (12-78) U/L Alkaline Phosphatase (46-116) IU/L Total Protein (6.4-8.2) g/dL Albumin (3.00-4.80) g/dL Jame Results Last 24 Hours: Microbiology 06/03/17 08:00 Stool for WBCs - Final Stool / Feces - Stool, Formed NO WBC SEEN 06/03/17 08:00 Clostridium difficile Toxin A&B (M) - Final Stool / Feces - Stool, Formed NEGATIVE CDIFF TOXIN 05/31/17 16:15 Wound Culture - Final Abdomen - Right Lower Staphylococcus Aureus 05/31/17 16:15 Urine Culture - Preliminary Urine, Voided Proteus Mirabilis Med Orders - Current: Current Medications Acetaminophen (Tylenol Extra Strength) 500 mg PO Q4HR [facility] Last Admin: 06/03/17 06:48 Dose: 500 mg Albuterol/Ipratropium (Duoneb 3.0-0.5 Mg/3 Ml) 3 ml NEB Q4H PRN PRN Reason: Shortness of Breath Last Admin: 06/01/17 17:01 Dose: 3 ml Apixaban (Eliquis) 5 mg PO BID [facility] Last Admin: 06/02/17 20:49 Dose: 5 mg Aripiprazole (Abilify) 10 mg PO QAM [facility] Last Admin: 06/02/17 09:05 Dose: 10 mg Al Hydroxide/Mg Hydroxide 40 ml/ Diphenhydramine HCl 12.5 mg/ Lidocaine HCl 40 ml 0 ml PO BIDAC [facility] Last Admin: 06/02/17 17:39 Dose: 15 ml Gentamicin Sulfate (Gentamicin 0.1%) 0 gm TOP BID [facility] Last Admin: 06/02/17 20:51 Dose: 1 applic Hydroxyzine HCl (Atarax) 25 mg PO Q6H PRN PRN Reason: Itching Last Admin: 06/02/17 06:45 Dose: 25 mg Sodium Chloride (Normal Saline) 1,000 mls @ 75 mls/hr IV ASDIRECTED [facility] Last Admin: 06/03/17 06:49 Dose: 75 mls/hr Lactobacillus Acidophilus/Rhamnosus (Multi-Anne Marie Plus) 1 cap PO DAILY@1200 [facility] Last Admin: 06/02/17 11:21 Dose: 1 cap Levothyroxine Sodium (Synthroid) 100 mcg PO ACBREAKFAST [facility] Last Admin: 06/02/17 07:58 Dose: 100 mcg Lidocaine HCl (Xylocaine 2% Viscous) 15 ml PO Q4H PRN PRN Reason: Pain Loperamide HCl (Imodium) 2 mg PO Q4H PRN PRN Reason: Diarrhea Loratadine (Claritin) 10 mg PO DAILY [facility] Last Admin: 06/02/17 09:04 Dose: 10 mg Lorazepam (Ativan) 0.5 mg PO BID PRN PRN Reason: Anxiety Last Admin: 06/02/17 22:06 Dose: 0.5 mg Melatonin (Melatonin) 3 mg PO BEDTIME [facility] Last Admin: 06/02/17 20:49 Dose: 3 mg Metoprolol Succinate (Toprol Xl) 12.5 mg PO BEDTIME [facility] Mupirocin (Bactroban Oint) 0 gm TOP BID [facility] Last Admin: 06/02/17 20:50 Dose: 1 applic Niacin (Niacin) 500 mg PO DAILY [facility] Last Admin: 06/02/17 09:03 Dose: 500 mg Omeprazole (Omeprazole) 20 mg PO DAILY [facility] Last Admin: 06/02/17 09:03 Dose: 20 mg Ondansetron HCl (Zofran) 4 mg IV Q6H PRN PRN Reason: Nausea/Vomiting Minocycline [Minocin ] 100 MgOwn Med * 1 each PO BID [facility] Last Admin: 06/02/17 20:50 Dose: 1 each Prednisone (Prednisone) 50 mg PO WITHBREAKFAST [facility] Stop: 06/16/17 08:01 Prednisone (Prednisone) 40 mg PO WITHBREAKFAST [facility] Stop: 06/23/17 08:01 Prednisone (Prednisone) 60 mg PO WITHBREAKFAST [facility] Stop: 06/09/17 08:01 Senna/Docusate Sodium (Senna Plus) 1 tab PO BID PRN PRN Reason: Constipation Tramadol HCl (Ultram) 50 mg PO Q6HR PRN PRN Reason: Pain Last Admin: 06/02/17 22:06 Dose: 50 mg Discontinued Medications Acetaminophen (Tylenol Extra Strength) 500 mg PO Q4H PRN PRN Reason: Pain Last Admin: 05/31/17 19:40 Dose: 500 mg Aripiprazole (Abilify) 5 mg PO QAM [facility] Last Admin: 06/01/17 08:24 Dose: 5 mg Aripiprazole (Abilify) 5 mg PO ONETIME ONE Stop: 06/01/17 13:01 Last Admin: 06/01/17 14:06 Dose: 5 mg Al Hydroxide/Mg Hydroxide 40 ml/ Diphenhydramine HCl 12.5 mg/ Lidocaine HCl 40 ml 0 ml PO BID [facility] Last Admin: 06/01/17 14:06 Dose: 1 each Sodium Chloride (Normal Saline) 1,000 mls @ 125 mls/hr IV ASDIRECTED [facility] Last Admin: 06/01/17 08:23 Dose: 125 mls/hr Sodium Chloride (Normal Saline) Confirm Administered Dose 1,000 mls @ as directed .ROUTE .STK-MED ONE Stop: 05/31/17 16:47 Last Admin: 05/31/17 18:09 Dose: Not Given Sodium Chloride (Normal Saline) 1,000 mls @ 100 mls/hr IV ASDIRECTED [facility] Last Admin: 06/02/17 04:49 Dose: 100 mls/hr Metoprolol Tartrate (Lopressor) 12.5 mg PO BID [facility] Last Admin: 06/01/17 08:40 Dose: 12.5 mg Ondansetron HCl (Zofran) Confirm Administered Dose 4 mg .ROUTE .STK-MED ONE Stop: 05/31/17 16:47 Last Admin: 05/31/17 18:09 Dose: Not Given Prednisone (Prednisone) 10 mg PO DAILY [facility] Last Admin: 06/01/17 08:24 Dose: 10 mg Prednisone (Prednisone) 20 mg PO WITHBREAKFAST [facility] Last Admin: 06/02/17 09:06 Dose: 20 mg Prednisone (Prednisone) 10 mg PO ONETIME ONE Stop: 06/01/17 12:01 Last Admin: 06/01/17 12:07 Dose: 10 mg Prednisone (Prednisone) 40 mg PO ONETIME ONE Stop: 06/02/17 15:07 Last Admin: 06/02/17 15:57 Dose: 40 mg Tramadol HCl (Ultram) 50 mg PO Q8H PRN PRN Reason: Pain Last Admin: 05/31/17 18:48 Dose: 50 mg - Exam Quality Assessment: Skin Breakdown. No: Supplemental Oxygen (Now off oxygen) General: Alert, Oriented, Cooperative. No: Mild Distress, Moderate Distress, Severe Distress, Sedated Neck: Supple Lungs: Clear to Auscultation, Normal Respiratory Effort Cardiovascular: Regular Rate, Regular Rhythm GI/Abdominal Exam: Soft (Female) Exam: Deferred Back Exam: Other (Tenderness right rib cage flank). No: CVA Tenderness (L), CVA Tenderness (R) Extremities: Pedal Edema Skin: Other (Diffuse weeping, moist, prutitic vesicles and bulla with erythematous skin eruptions throughout her body including but not limited to back, breast, abdomen arms lower extremities, auricles of right ear newly developing blister forming bottom of right foot. Many blisters have burst with noticeable skin erosion with notable inflammatory hyperpigmentation--seems to be worse in flexural compartments) Neurological: Normal Speech Psy/Mental Status: Alert, Labile Mood, Anxious - Problem List Review Problem List Initiated/Reviewed/Updated: Yes - My Orders Last 24 Hours: My Active Orders 06/02/17 08:56 Supplement (Dietary) [Dietary Supplements] [RC] TID 06/02/17 09:00 ARIPiprazole [Abilify] 10 mg PO QAM 06/02/17 09:45 Sodium Chloride 0.9% [Normal Saline] 1,000 ml IV ASDIRECTED 06/02/17 21:00 Metoprolol Succinate [Toprol XL] 12.5 mg PO BEDTIME 06/03/17 09:00 predniSONE 60 mg PO WITHBREAKFAST 06/10/17 09:00 predniSONE 50 mg PO WITHBREAKFAST 06/17/17 09:00 predniSONE 40 mg PO WITHBREAKFAST - Plan Plan:: BRIEF HISTORY Patient with self-care neglect with concomittent depression was admitted due debilitation, dehydration and mostly worsening erythematous exacerbation of bullous pemphigoid along with maceration with new forming blisters. See scanned H&P for greater details Impression/plan Bullous Pemphigoid INTEGUMENTARY ASSESSMENT Diffuse weeping, newly formrd bottom of her right foot, moist, prutitic vesicles and bulla with erythematous skin eruptions throughout her body including but not limited to back, breast, abdomen, arms, lower extremities, auricles of right ear and oral cavity. Many blisters have burst with noticeable skin erosion with notable inflammatory hyperpigmentation--seems to be worse in flexural compartments, see scanned pictures for initial presentation. Controlling of her associated pruritus. Fingernails have been clipped, hands wrapped in gauze as needed, posterior reminder not to scratch, hydroxyzine, prednisone increased 60 mg daily, taper by 10 mg weekly. Preventing associated complications such as worsening osteoporosis or GI ulceration. Since topical cream extremely nursing intensive will change to daily treatments of topical creams however continue with minocycline. Discontinue Hibiclens shower, daily shower antibacterial soap. History of atrial fibrillation, currently NSR, [id number], factor Xa inhibitor twice a day. Creatinine acceptable, MAP has been running low however improved, changed metoprolol tartrate to low-dose succinate for improved compliance however holding parameters for now. Caution with family on admission regarding risks versus benefit for anticoagulation medication Depression, profound on admission and the past few weeks, monotherapy Abilify was recently increased--some improvement noticed. May consider combo therapy Hypoalbuminemia, profound, lagging indicator, likely combination of protein malnutrition and degradation due to autoimmune inflammatory state, UA neg for proteinuria, nutritional supplementation. Monitor closely for fluid accumulation /retention, assess LFTs Dehydration, much improved, taking adequate oral, discontinue IV due to high risk of infection d/t integumentary breakdown. Continue to treat stomatitis Prophylaxis probiotics since on multiple Abx, Hypotension, improvement, decreased beta ilana, change to daily for improve patient compliance. Holding for now. Hypocalcemia; Pseudo, nutritional consultation with supppementation dietary. Asympomatic Bacteruria; monitor for sx, no treatment for now with abx. Anemia; microcytic, normochromic, anisocytosis, hold off of full workup for now. Reactive thrombocytosis, neutrophia very mild, no fever, mild, monitor. Pain Control stategies; change Tylenol to scheduled. Tramadol when necessary prior to shower/activities/PT etc. Hypothyroidism, on thyroid replacement therapy. Obesity, confounding. Osteoporosis, I do not see a DEXA scan for BMD, however since increasing prednisone will need improved protection, maximize calcium/vitamin D3, consider biophasphonate. Self-care neglect, confounded by profound depression, Abilify recently increased , majorly contributory for medication compliance. Component of self-care neglect. GI prophylaxis; increasing steroids--will add antihistamine ilana H2. DVT prophylaxis, cross covered with Apixaban. Creatinine acceptable Immunocompromised host, corticosteroids and integumentary breakdown. Consultations: Dermatology [facility]. Recommend 60 mg of prednisone per day with stepdown therapy of 10 mg per week. They will see her as outpatient once she reaches 40 mg per day. CODE STATUS, DO NOT RESUSCITATE Overall plan and discharge planning Long discussion with family and patient, long-term plan discussed, best plan for her would be discharged in care of her daughter and relocate to [place] and establish care with tertiary care center nearby with social director, home health care and a dermatology. Patient's daughter Brianne in agreement with plan--patient contemplating however not ideal to discharge in care of her spouse here in [place] locally due to descreased ability for support/ care that she may need at home and the patient's noncompliance at home. I stressed to patient today that she is not a candidate to go home here in [place] with spouse. She qualifies for acute care until WednesdayJune 07, then patient will be placed in swing bed therapy here as long as she qualifies for PT.
[2017-06-03] MEDS: Gentamicin 0.1% Crm 15 GM Tube TOP SCH ×2 (09:42→11:08)
[2017-06-03] MEDS: B.Bifidum/B.Longum/L.Acidophilus/L.Rhamnosus (Probiotic) Cap PO SCH (11:50)
[2017-06-03] MEDS: Melatonin 3 MG Tab PO SCH (20:59)
[2017-06-03] MEDS: Mupirocin Crm 15 GM Tube TOP SCH (21:00)
[2017-06-03] MEDS: LORazepam 0.5 MG Tab PO PRN (21:02)
[2017-06-03] MEDS: Calcium Citrate/Vitamin D3 315 MG-250 Unit Tab PO SCH (21:03)
[2017-06-03] MEDS: hydrOXYzine HCl 25 MG Tab PO PRN (23:12)
[2017-06-04] MEDS: traMADol 50 MG Tab PO PRN ×2 (02:10→08:35)
[2017-06-04] MEDS: Acetaminophen 500 MG Tab PO SCH ×6 (03:54→22:11)
[2017-06-04] MEDS: hydrOXYzine HCl 25 MG Tab PO PRN (06:46)
[2017-06-04] MEDS: Levothyroxine 50 MCG Tab PO SCH (07:48)
[2017-06-04] MEDS: LIDOCAINE VISC 2% PO SCH ×6 (07:56→17:38)
[2017-06-04] MEDS: [UNRECOGNIZED DRUG - OTHER] PO SCH ×6 (07:56→17:38)
[2017-06-04] MEDS: ARIPiprazole 5 MG Tab PO SCH (08:09)
[2017-06-04] MEDS: Loratadine 10 MG Tab PO SCH (08:10)
[2017-06-04] MEDS: predniSONE 20 MG Tab PO SCH (08:10)
[2017-06-04] MEDS: Apixaban 5 MG Tab PO SCH ×2 (08:10→21:00)
[2017-06-04] MEDS: Niacin 500 MG Tab PO SCH (08:11)
[2017-06-04] MEDS: MINOCYCLINE 100 MG PO SCH ×2 (08:12→21:00)
[2017-06-04] MEDS: Calcium Citrate/Vitamin D3 315 MG-250 Unit Tab PO SCH ×2 (08:16→21:00)
[2017-06-04] MEDS: Gentamicin 0.1% Crm 15 GM Tube TOP SCH (08:36)
[2017-06-04] MEDS ORDERED: Cholecalciferol (Vitamin D3) 1,000 Unit Tab PO SCH (09:00)
--- NOTE | 2017-06-04 11:22 | PN ---
06/04/2017 PATIENT NAME: IRENE FLORES SUBJECTIVE: The patient is an 82-year-old patient, who has been admitted to the hospital because of problems of dehydration and exacerbation of pemphigoid. The patient has been seen in the room today. She is alert, well oriented to space, time, and person, and she is answering questions appropriately. The patient states that the skin lesions are improving. She is still developing a few new ones, but most of the old ones are drying up. OBJECTIVE: VITAL SIGNS: Her vital signs were as follows: Temperature 98.5, blood pressure is 114/69, oxygen saturation 94%, pulse is 99. Her intake and output are satisfactory. GENERAL: Examination reveals her to be alert, in no immediate distress. HEENT: Head is negative. Face is slightly puffy. Mouth, the patient's mucous membranes are slightly dry. No new lesions are noted in the mouth. SKIN: The patient does have drying lesions all over the body. These are definitely better than yesterday and the day before that. These are present over the breast, abdomen, arms and back etc. Also on the soles of the feet. HEART: Regular rhythm. No thrills or murmurs. LUNGS: Clinically clear to percussion and auscultation. ABDOMEN: Soft. No masses. No tenderness. EXTREMITIES: Normal otherwise. FINAL DIAGNOSES: 1. Bullous pemphigoid. This is improved since the prednisone dosage has been increased. We did secure dermatological consultation from [facility]. Prednisone is currently at 60 mg daily. This has caused improvement in her symptomatology. It will be reduced by 10 mg weekly. 2. Hypotension is stable. 3. Hypocalcemia probably secondary to hypoalbuminemia. 4. Albumin level is low at 1.25. Trying to increase her protein intake. The patient is a poor eater. She does not like meat and eggs. This makes it difficult to increase her protein content of her diet. 5. Anemia. This may be due to chronic disease as it is normochromic. 6. Asymptomatic bacteriuria. No treatment. 7. Reactive thrombocytosis. No treatment at this time. 8. Hypothyroidism, stable. Will follow up in a.m. Last laboratory data performed on 06/03/2017 showed normal electrolytes. /[id number]/MODL MTDD
[2017-06-04] MEDS: B.Bifidum/B.Longum/L.Acidophilus/L.Rhamnosus (Probiotic) Cap PO SCH (11:26)
[2017-06-04] MEDS: Melatonin 3 MG Tab PO SCH (21:00)
[2017-06-04] MEDS: Mupirocin Crm 15 GM Tube TOP SCH (21:32)
[2017-06-04] MEDS ORDERED: Mupirocin Oint 22 GM Tube TOP ONE (21:32)
[2017-06-04] MEDS: LORazepam 0.5 MG Tab PO PRN (22:11)
[2017-06-05] MEDS: Acetaminophen 500 MG Tab PO SCH ×6 (03:09→22:25)
[2017-06-05] MEDS: traMADol 50 MG Tab PO PRN ×2 (03:23→20:22)
[2017-06-05] MEDS: Levothyroxine 50 MCG Tab PO SCH (07:45)
[2017-06-05] MEDS: [UNRECOGNIZED DRUG - OTHER] PO SCH ×6 (07:47→17:44)
[2017-06-05] MEDS: LIDOCAINE VISC 2% PO SCH ×6 (07:47→17:44)
[2017-06-05] MEDS: Loratadine 10 MG Tab PO SCH (08:47)
[2017-06-05] MEDS: Calcium Citrate/Vitamin D3 315 MG-250 Unit Tab PO SCH ×2 (08:47→20:23)
[2017-06-05] MEDS: predniSONE 20 MG Tab PO SCH (08:47)
[2017-06-05] MEDS: Apixaban 5 MG Tab PO SCH ×2 (08:48→20:23)
[2017-06-05] MEDS: Niacin 500 MG Tab PO SCH (08:48)
[2017-06-05] MEDS: ARIPiprazole 5 MG Tab PO SCH (08:48)
[2017-06-05] MEDS: Gentamicin 0.1% Crm 15 GM Tube TOP SCH (08:49)
[2017-06-05] MEDS: MINOCYCLINE 100 MG PO SCH ×2 (08:49→20:23)
[2017-06-05] MEDS: Ondansetron 4 MG Tab.DIS PO PRN ×2 (08:51→19:37)
--- NOTE | 2017-06-05 10:26 | PCM.PN ---
- General Info Date of Service: 06/05/17 Functional Status: Reports: Other (She is wanting to be in bed as much as allowed. Has walked only to the bathroom in her room.) - Review of Systems General: Reports: Weakness HEENT: Reports: No Symptoms Pulmonary: Reports: Other (Pain with deep breaths) Cardiovascular: Reports: No Symptoms Gastrointestinal: Reports: Abdominal Pain (Reports long history of pain with abdominal palpation. Last BM yesterday.), Decreased Appetite (There are very few foods she likes. Family has helped identify some protein foods she will eat : peanutbutter and pickle sandwich, chile, cheese on toast, chocolate ensure, breeze.) Genitourinary: Reports: No Symptoms Musculoskeletal: Reports: Other (generalized weakness) Skin: Reports: Other (multiple pemphigus lesions throughout body) Neurological: Reports: No Symptoms Psychiatric: Reports: Other (alert and oriented) - Patient Data Vitals - Most Recent: Last Vital Signs Temp 97.2 F 06/05/17 06:52 Pulse 95 06/05/17 06:52 Resp 18 06/05/17 06:52 BP 122/78 06/05/17 06:52 Pulse Ox 95 06/05/17 06:52 Weight - Most Recent: 196 lb 9.6 oz I&O - Last 24 Hours: Intake & Output 06/04/17 06/05/17 06/05/17 22:59 06:59 14:59 Intake Total 680 250 Balance 680 250 Lab Results Last 24 Hours: Laboratory Results - last 24 hr 06/04/17 06/05/17 06/05/17 Range/Units 17:36 06:29 07:04 POC Glucose 171 H 54 L 78 (74-106) mg/dl Jame Results Last 24 Hours: Microbiology 06/03/17 08:00 Stool Aerobic Culture - Preliminary Stool / Feces Med Orders - Current: Current Medications Acetaminophen (Tylenol Extra Strength) 500 mg PO Q4HR [facility] Last Admin: 06/05/17 06:53 Dose: 500 mg Albuterol/Ipratropium (Duoneb 3.0-0.5 Mg/3 Ml) 3 ml NEB Q4H PRN PRN Reason: Shortness of Breath Last Admin: 06/01/17 17:01 Dose: 3 ml Apixaban (Eliquis) 5 mg PO BID [facility] Last Admin: 06/05/17 08:48 Dose: 5 mg Aripiprazole (Abilify) 10 mg PO QAM [facility] Last Admin: 06/05/17 08:48 Dose: 10 mg Calcium Citrate (Calcium Citrate + D) 2 tab PO BID [facility] Last Admin: 06/05/17 08:47 Dose: 2 tab Al Hydroxide/Mg Hydroxide 40 ml/ Diphenhydramine HCl 12.5 mg/ Lidocaine HCl 40 ml 0 ml PO BIDAC [facility] Last Admin: 06/05/17 07:47 Dose: 15 ml Gentamicin Sulfate (Gentamicin 0.1%) 1 gm TOP DAILY [facility] Last Admin: 06/05/17 08:49 Dose: 1 applic Hydroxyzine HCl (Atarax) 25 mg PO Q6H PRN PRN Reason: Itching Last Admin: 06/04/17 06:46 Dose: 25 mg Lactobacillus Acidophilus/Rhamnosus (Multi-Anne Marie Plus) 1 cap PO DAILY@1200 [facility] Last Admin: 06/04/17 11:26 Dose: 1 cap Levothyroxine Sodium (Synthroid) 100 mcg PO ACBREAKFAST [facility] Last Admin: 06/05/17 07:45 Dose: 100 mcg Lidocaine HCl (Xylocaine 2% Viscous) 15 ml PO Q4H PRN PRN Reason: Pain Loperamide HCl (Imodium) 2 mg PO Q4H PRN PRN Reason: Diarrhea Loratadine (Claritin) 10 mg PO DAILY [facility] Last Admin: 06/05/17 08:47 Dose: 10 mg Lorazepam (Ativan) 0.5 mg PO BID PRN PRN Reason: Anxiety Last Admin: 06/04/17 22:11 Dose: 0.5 mg Melatonin (Melatonin) 3 mg PO BEDTIME [facility] Last Admin: 06/04/17 21:00 Dose: 3 mg Metoprolol Succinate (Toprol Xl) 12.5 mg PO BEDTIME [facility] Mupirocin (Bactroban Crm) 1 gm TOP BEDTIME [facility] Last Admin: 06/04/17 21:32 Dose: 1 applic Niacin (Niacin) 500 mg PO DAILY [facility] Last Admin: 06/05/17 08:48 Dose: 500 mg Ondansetron HCl (Zofran Odt) 4 mg PO Q6H PRN PRN Reason: Nausea/Vomiting Last Admin: 06/05/17 08:51 Dose: 4 mg Minocycline [Minocin ] 100 MgOwn Med * 1 each PO BID [facility] Last Admin: 06/05/17 08:49 Dose: 1 each Prednisone (Prednisone) 50 mg PO WITHBREAKFAST [facility] Stop: 06/16/17 08:01 Prednisone (Prednisone) 40 mg PO WITHBREAKFAST [facility] Stop: 06/23/17 08:01 Prednisone (Prednisone) 60 mg PO WITHBREAKFAST [facility] Stop: 06/09/17 08:01 Last Admin: 06/05/17 08:47 Dose: 60 mg Ranitidine HCl (Zantac) 150 mg PO DAILY [facility] Last Admin: 06/05/17 08:19 Dose: 150 mg Senna/Docusate Sodium (Senna Plus) 1 tab PO BID PRN PRN Reason: Constipation Tramadol HCl (Ultram) 50 mg PO Q6HR PRN PRN Reason: Pain Last Admin: 06/05/17 03:23 Dose: 50 mg Discontinued Medications Acetaminophen (Tylenol Extra Strength) 500 mg PO Q4H PRN PRN Reason: Pain Last Admin: 05/31/17 19:40 Dose: 500 mg Aripiprazole (Abilify) 5 mg PO QAM [facility] Last Admin: 06/01/17 08:24 Dose: 5 mg Aripiprazole (Abilify) 5 mg PO ONETIME ONE Stop: 06/01/17 13:01 Last Admin: 06/01/17 14:06 Dose: 5 mg Cholecalciferol (Vitamin D3) 2,000 units PO DAILY [facility] Al Hydroxide/Mg Hydroxide 40 ml/ Diphenhydramine HCl 12.5 mg/ Lidocaine HCl 40 ml 0 ml PO BID [facility] Last Admin: 06/01/17 14:06 Dose: 1 each Gentamicin Sulfate (Gentamicin 0.1%) 0 gm TOP BID [facility] Last Admin: 06/03/17 09:42 Dose: Not Given Sodium Chloride (Normal Saline) 1,000 mls @ 125 mls/hr IV ASDIRECTED [facility] Last Admin: 06/01/17 08:23 Dose: 125 mls/hr Sodium Chloride (Normal Saline) Confirm Administered Dose 1,000 mls @ as directed .ROUTE .STK-MED ONE Stop: 05/31/17 16:47 Last Admin: 05/31/17 18:09 Dose: Not Given Sodium Chloride (Normal Saline) 1,000 mls @ 100 mls/hr IV ASDIRECTED [facility] Last Admin: 06/02/17 04:49 Dose: 100 mls/hr Sodium Chloride (Normal Saline) 1,000 mls @ 75 mls/hr IV ASDIRECTED [facility] Last Admin: 06/03/17 06:49 Dose: 75 mls/hr Metoprolol Tartrate (Lopressor) 12.5 mg PO BID [facility] Last Admin: 06/01/17 08:40 Dose: 12.5 mg Mupirocin (Bactroban Oint) 0 gm TOP BID [facility] Last Admin: 06/03/17 09:41 Dose: Not Given Omeprazole (Omeprazole) 20 mg PO DAILY [facility] Last Admin: 06/03/17 09:11 Dose: 20 mg Ondansetron HCl (Zofran) 4 mg IV Q6H PRN PRN Reason: Nausea/Vomiting Ondansetron HCl (Zofran) Confirm Administered Dose 4 mg .ROUTE .STK-MED ONE Stop: 05/31/17 16:47 Last Admin: 05/31/17 18:09 Dose: Not Given Prednisone (Prednisone) 10 mg PO DAILY [facility] Last Admin: 06/01/17 08:24 Dose: 10 mg Prednisone (Prednisone) 20 mg PO WITHBREAKFAST [facility] Last Admin: 06/02/17 09:06 Dose: 20 mg Prednisone (Prednisone) 10 mg PO ONETIME ONE Stop: 06/01/17 12:01 Last Admin: 06/01/17 12:07 Dose: 10 mg Prednisone (Prednisone) 40 mg PO ONETIME ONE Stop: 06/02/17 15:07 Last Admin: 06/02/17 15:57 Dose: 40 mg Tramadol HCl (Ultram) 50 mg PO Q8H PRN PRN Reason: Pain Last Admin: 05/31/17 18:48 Dose: 50 mg - Exam General: Alert, Oriented Lungs: Normal Respiratory Effort, Rhonchi (rhonchi left base. No wheezing.) Cardiovascular: Regular Rate, Regular Rhythm GI/Abdominal Exam: Other (abdomen firm, very tender to palpation) Extremities: Other (multiple pemphigus lesions. Trace pedal edema criss.) Skin: Other (large bullous pemphigus lesions throughout trunk and extremities. Abdominal lesions continue moist. Other lesions are red and in healing stage.) Wound/Incisions: Healing Well Neurological: No New Focal Deficit Psy/Mental Status: Alert, Normal Affect, Normal Mood - Problem List Review Problem List Initiated/Reviewed/Updated: Yes - My Orders Last 24 Hours: My Active Orders 06/05/17 08:41 Ondansetron [Zofran ODT] 4 mg PO Q6H PRN - Assessment Assessment:: Impression and Plan: BRIEF HISTORY Patient with self-care neglect with concomitant depression was admitted due debilitation, dehydration and mostly worsening erythematous exacerbation of bullous pemphigoid. See scanned H&P for greater details 1. Bullous pemphigoid: Continues to slowly improve. A dermatological consult was obtained previously. She continues on prednisone 60 mg daily. Plan is to decrease this by 10 mg weekly. Next reduction dose will be 06/09/17. 2. Hypotension: Stable. 3. Hypocalcemia. This may be related to hypoalbuminemia. Will recheck CMP on Wednesday. 4. Hypoalbuminemia: Albumin level was low at 1.25. Likely combination of protein malnutrition and degradation due to open integumentary skin due to autoimmune inflammatory state, Pt does not like meat or eggs, however, today she was able to identify some protein foods that she will eat: Peanut butter with pickles, irish cheese on toast, chile, chocolate ensure, breeze. She is taking the breeze now, but is willing to begin other protein rich foods. Will continue to push proteins and recheck CMP on Wednesday. If albumin does not improve, may need 25% albumin infusion. Monitor closely for fluid accumulation/retention. 5. Normochromic Anemia: May be due to chronic disease. Will recheck CBC on Wednesday. 6. Generalized weakness: will have her up in the halls walking TID. 7. Reactive thrombocytosis. No treatment at this time. 8. Hypothyroid: She had been on levothyroxine 75 mcg up until 05/31/17 at which time TSH was 15.53. Levothyroxine was increased to 100 mcg. Will continue same. Next TSH will be after 8 weeks at the clinic. 9. History of atrial fibrillation, currently NSR, [id number], ,factor Xa inhibitor twice a day. Creatinine acceptable, Pt on low-dose succinate decrease beta ilana. Medication risks versus benefit was discussed with patient/family 10. Depression, profound, monotherapy Abilify was recently increased. 11. 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 12. DVT prophylaxis, cross covered with Apixaban. Creatinine acceptable. - Plan Plan:: .
[2017-06-05] MEDS: B.Bifidum/B.Longum/L.Acidophilus/L.Rhamnosus (Probiotic) Cap PO SCH (11:10)
[2017-06-05] MEDS: Mupirocin Crm 15 GM Tube TOP SCH (20:08)
[2017-06-05] MEDS: Melatonin 3 MG Tab PO SCH (20:23)
[2017-06-05] MEDS: LORazepam 0.5 MG Tab PO PRN (22:25)
[2017-06-06] MEDS: Acetaminophen 500 MG Tab PO SCH ×6 (02:16→22:06)
[2017-06-06] MEDS: traMADol 50 MG Tab PO PRN ×2 (05:49→13:48)
[2017-06-06] MEDS: Levothyroxine 50 MCG Tab PO SCH (07:40)
[2017-06-06] MEDS: LIDOCAINE VISC 2% PO SCH ×6 (07:41→17:30)
[2017-06-06] MEDS: [UNRECOGNIZED DRUG - OTHER] PO SCH ×6 (07:41→17:30)
[2017-06-06] MEDS: Gentamicin 0.1% Crm 15 GM Tube TOP SCH (08:16)
[2017-06-06] MEDS: MINOCYCLINE 100 MG PO SCH ×2 (08:16→20:27)
[2017-06-06] MEDS: Calcium Citrate/Vitamin D3 315 MG-250 Unit Tab PO SCH ×2 (08:17→20:27)
[2017-06-06] MEDS: Apixaban 5 MG Tab PO SCH ×2 (08:17→20:27)
[2017-06-06] MEDS: ARIPiprazole 5 MG Tab PO SCH (08:18)
[2017-06-06] MEDS: predniSONE 20 MG Tab PO SCH (08:18)
[2017-06-06] MEDS: Niacin 500 MG Tab PO SCH (08:18)
[2017-06-06] MEDS: Loratadine 10 MG Tab PO SCH (08:19)
[2017-06-06] MEDS: B.Bifidum/B.Longum/L.Acidophilus/L.Rhamnosus (Probiotic) Cap PO SCH (11:18)
--- NOTE | 2017-06-06 13:17 | PCM.PN ---
- General Info Date of Service: 06/06/17 Admission Dx/Problem (Free Text): Bullous pemphigoid. Hypoalbuminemia, Generalized weakness. Functional Status: Reports: Pain Controlled, Other (less rib pain today. Does continue to have some back pain) - Review of Systems General: Reports: Fatigue HEENT: Reports: No Symptoms Pulmonary: Reports: No Symptoms Cardiovascular: Reports: No Symptoms Gastrointestinal: Reports: Decreased Appetite Genitourinary: Reports: No Symptoms Musculoskeletal: Reports: Back Pain, Other (rib pain is improved.) Skin: Reports: Other (bullous pemphigoid lesions are improving) Psychiatric: Reports: Other (fatigue, depression) - Patient Data Vitals - Most Recent: Last Vital Signs Temp 97.0 F 06/06/17 06:16 Pulse 95 06/06/17 06:16 Resp 20 06/06/17 06:16 BP 138/84 06/06/17 06:16 Pulse Ox 95 06/06/17 06:16 Weight - Most Recent: 196 lb 9.6 oz I&O - Last 24 Hours: Intake & Output 06/05/17 06/06/17 06/06/17 22:59 06:59 14:59 Intake Total 200 50 Balance 200 50 Lab Results Last 24 Hours: Laboratory Results - last 24 hr 06/05/17 06/06/17 06/06/17 Range/Units 17:41 06:31 07:03 POC Glucose 177 H 60 L 87 (74-106) mg/dl Jame Results Last 24 Hours: Microbiology 06/03/17 08:00 Stool Aerobic Culture - Final Stool / Feces Med Orders - Current: Current Medications Acetaminophen (Tylenol Extra Strength) 500 mg PO Q4HR [facility] Last Admin: 06/06/17 11:18 Dose: 500 mg Albuterol/Ipratropium (Duoneb 3.0-0.5 Mg/3 Ml) 3 ml NEB Q4H PRN PRN Reason: Shortness of Breath Last Admin: 06/01/17 17:01 Dose: 3 ml Apixaban (Eliquis) 5 mg PO BID [facility] Last Admin: 06/06/17 08:17 Dose: 5 mg Aripiprazole (Abilify) 10 mg PO QAM [facility] Last Admin: 06/06/17 08:18 Dose: 10 mg Calcium Citrate (Calcium Citrate + D) 2 tab PO BID [facility] Last Admin: 06/06/17 08:17 Dose: 2 tab Al Hydroxide/Mg Hydroxide 40 ml/ Diphenhydramine HCl 12.5 mg/ Lidocaine HCl 40 ml 0 ml PO BIDAC [facility] Last Admin: 06/06/17 07:41 Dose: 15 ml Gentamicin Sulfate (Gentamicin 0.1%) 1 gm TOP DAILY [facility] Last Admin: 06/06/17 08:16 Dose: 1 applic Hydroxyzine HCl (Atarax) 25 mg PO Q6H PRN PRN Reason: Itching Last Admin: 06/04/17 06:46 Dose: 25 mg Lactobacillus Acidophilus/Rhamnosus (Multi-Anne Marie Plus) 1 cap PO DAILY@1200 [facility] Last Admin: 06/06/17 11:18 Dose: 1 cap Levothyroxine Sodium (Synthroid) 100 mcg PO ACBREAKFAST [facility] Last Admin: 06/06/17 07:40 Dose: 100 mcg Lidocaine HCl (Xylocaine 2% Viscous) 15 ml PO Q4H PRN PRN Reason: Pain Loperamide HCl (Imodium) 2 mg PO Q4H PRN PRN Reason: Diarrhea Loratadine (Claritin) 10 mg PO DAILY [facility] Last Admin: 06/06/17 08:19 Dose: 10 mg Lorazepam (Ativan) 0.5 mg PO BID PRN PRN Reason: Anxiety Last Admin: 06/05/17 22:25 Dose: 0.5 mg Melatonin (Melatonin) 3 mg PO BEDTIME [facility] Last Admin: 06/05/17 20:23 Dose: 3 mg Metoprolol Succinate (Toprol Xl) 12.5 mg PO BEDTIME [facility] Mupirocin (Bactroban Crm) 1 gm TOP BEDTIME [facility] Last Admin: 06/05/17 20:08 Dose: 1 applic Niacin (Niacin) 500 mg PO DAILY [facility] Last Admin: 06/06/17 08:18 Dose: 500 mg Ondansetron HCl (Zofran Odt) 4 mg PO Q6H PRN PRN Reason: Nausea/Vomiting Last Admin: 06/05/17 19:37 Dose: 4 mg Minocycline [Minocin ] 100 MgOwn Med * 1 each PO BID [facility] Last Admin: 06/06/17 08:16 Dose: 1 each Prednisone (Prednisone) 50 mg PO WITHBREAKFAST [facility] Stop: 06/16/17 08:01 Prednisone (Prednisone) 40 mg PO WITHBREAKFAST [facility] Stop: 06/23/17 08:01 Prednisone (Prednisone) 60 mg PO WITHBREAKFAST [facility] Stop: 06/09/17 08:01 Last Admin: 06/06/17 08:18 Dose: 60 mg Ranitidine HCl (Zantac) 150 mg PO DAILY [facility] Last Admin: 06/06/17 08:20 Dose: 150 mg Senna/Docusate Sodium (Senna Plus) 1 tab PO BID PRN PRN Reason: Constipation Tramadol HCl (Ultram) 50 mg PO Q6HR PRN PRN Reason: Pain Last Admin: 06/06/17 05:49 Dose: 50 mg Discontinued Medications Acetaminophen (Tylenol Extra Strength) 500 mg PO Q4H PRN PRN Reason: Pain Last Admin: 05/31/17 19:40 Dose: 500 mg Aripiprazole (Abilify) 5 mg PO QAM [facility] Last Admin: 06/01/17 08:24 Dose: 5 mg Aripiprazole (Abilify) 5 mg PO ONETIME ONE Stop: 06/01/17 13:01 Last Admin: 06/01/17 14:06 Dose: 5 mg Cholecalciferol (Vitamin D3) 2,000 units PO DAILY [facility] Al Hydroxide/Mg Hydroxide 40 ml/ Diphenhydramine HCl 12.5 mg/ Lidocaine HCl 40 ml 0 ml PO BID [facility] Last Admin: 06/01/17 14:06 Dose: 1 each Gentamicin Sulfate (Gentamicin 0.1%) 0 gm TOP BID [facility] Last Admin: 06/03/17 09:42 Dose: Not Given Sodium Chloride (Normal Saline) 1,000 mls @ 125 mls/hr IV ASDIRECTED [facility] Last Admin: 06/01/17 08:23 Dose: 125 mls/hr Sodium Chloride (Normal Saline) Confirm Administered Dose 1,000 mls @ as directed .ROUTE .STK-MED ONE Stop: 05/31/17 16:47 Last Admin: 05/31/17 18:09 Dose: Not Given Sodium Chloride (Normal Saline) 1,000 mls @ 100 mls/hr IV ASDIRECTED [facility] Last Admin: 06/02/17 04:49 Dose: 100 mls/hr Sodium Chloride (Normal Saline) 1,000 mls @ 75 mls/hr IV ASDIRECTED [facility] Last Admin: 06/03/17 06:49 Dose: 75 mls/hr Metoprolol Tartrate (Lopressor) 12.5 mg PO BID [facility] Last Admin: 06/01/17 08:40 Dose: 12.5 mg Mupirocin (Bactroban Oint) 0 gm TOP BID [facility] Last Admin: 06/03/17 09:41 Dose: Not Given Omeprazole (Omeprazole) 20 mg PO DAILY [facility] Last Admin: 06/03/17 09:11 Dose: 20 mg Ondansetron HCl (Zofran) 4 mg IV Q6H PRN PRN Reason: Nausea/Vomiting Ondansetron HCl (Zofran) Confirm Administered Dose 4 mg .ROUTE .STK-MED ONE Stop: 05/31/17 16:47 Last Admin: 05/31/17 18:09 Dose: Not Given Prednisone (Prednisone) 10 mg PO DAILY [facility] Last Admin: 06/01/17 08:24 Dose: 10 mg Prednisone (Prednisone) 20 mg PO WITHBREAKFAST [facility] Last Admin: 06/02/17 09:06 Dose: 20 mg Prednisone (Prednisone) 10 mg PO ONETIME ONE Stop: 06/01/17 12:01 Last Admin: 06/01/17 12:07 Dose: 10 mg Prednisone (Prednisone) 40 mg PO ONETIME ONE Stop: 06/02/17 15:07 Last Admin: 06/02/17 15:57 Dose: 40 mg Tramadol HCl (Ultram) 50 mg PO Q8H PRN PRN Reason: Pain Last Admin: 05/31/17 18:48 Dose: 50 mg - Exam General: Alert, Other (sitting up in chair more alert today. Smiles at times.) Neck: Supple Lungs: Rales (few scattered rales right base) Cardiovascular: Regular Rate, Regular Rhythm, No Murmurs Extremities: Other (trace pedal edema) Skin: Other (pemphigoid lesions slowly drying and healing. No new lesions ) Psy/Mental Status: Alert (continues with depression, low affect. Repeatedly asking to return to bed. She does admit that she feels better since she started walking in the halls a bit yesterday.) - Problem List Review Problem List Initiated/Reviewed/Updated: Yes - My Orders Last 24 Hours: My Active Orders 06/07/17 05:00 CMP [COMPREHENSIVE METABOLIC PN,CMP] [CHEM] Routine - Assessment Assessment:: Impression and Plan: BRIEF HISTORY Patient with self-care neglect with concomitant depression was admitted due debilitation, dehydration and mostly worsening bullous pemphigoid. 1. Bullous pemphigoid: Continues to slowly improve. A dermatological consult was obtained previously. She continues on prednisone 60 mg daily. Plan is to decrease this by 10 mg weekly. Next reduction dose will be 06/09/17. No changes today. 2. Hypotension: Stable. 3. Hypocalcemia. This may be related to hypoalbuminemia. Will recheck CMP on Wednesday. 4. Hypoalbuminemia: Albumin level was low at 1.25. Likely combination of protein malnutrition and degradation due to open integumentary skin due to autoimmune inflammatory state, Pt is being offered some foods that she has stated she will eat--toast with cheese, chile, kleber ensure and breeze. Will continue to offer foods that she has identified as protien foods she will eat: Peanut butter with pickles, [place] cheese on toast, chile, chocolate ensure, breeze. Will continue to push proteins and recheck CMP on Wednesday. If albumin does not improve, may need 25% albumin infusion. Pt has been advised of this. Will keep saline lock in for possible future need. Continue to monitor closely for fluid accumulation/retention. 5. Normochromic Anemia: May be due to chronic disease. Will recheck CBC on Wednesday. 6. Generalized weakness: Reports she does feel better since she was up in the halls walking yesterday. continue to push ambulation. 7. Reactive thrombocytosis. No treatment at this time. 8. Hypothyroid: She had been on levothyroxine 75 mcg up until 05/31/17 at which time TSH was 15.53. Levothyroxine was increased to 100 mcg. Will continue same. Next TSH will be after 8 weeks at the clinic. 9. History of atrial fibrillation, currently NSR, Continue apixaban twice a day. Pt on low-dose metoprolol succinate. 10. Depression, profound, monotherapy Abilify was recently increased. Pt reports improved mood today. 11. 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 12. DVT prophylaxis, cross covered with Apixaban. - Plan Plan:: .
[2017-06-06] MEDS: Mupirocin Crm 15 GM Tube TOP SCH (20:03)
[2017-06-06] MEDS ORDERED: Mupirocin Oint 22 GM Tube TOP ONE (20:03)
[2017-06-06] MEDS: Melatonin 3 MG Tab PO SCH (20:27)
[2017-06-06] MEDS: LORazepam 0.5 MG Tab PO PRN (22:07)
[2017-06-07] MEDS: Acetaminophen 500 MG Tab PO SCH ×4 (03:32→15:53)
[2017-06-07 08:02] LABS: CHLORIDE,CL 110 mmol/L (98-115); SODIUM,NA 143 mmol/L (136-145)
[2017-06-07] MEDS: LIDOCAINE VISC 2% PO SCH ×3 (08:12)
[2017-06-07] MEDS: [UNRECOGNIZED DRUG - OTHER] PO SCH ×3 (08:12)
[2017-06-07] MEDS: Levothyroxine 50 MCG Tab PO SCH (08:13)
[2017-06-07] MEDS: predniSONE 20 MG Tab PO SCH (08:13)
[2017-06-07] MEDS: Gentamicin 0.1% Crm 15 GM Tube TOP SCH (08:14)
[2017-06-07] MEDS: ARIPiprazole 5 MG Tab PO SCH (08:14)
[2017-06-07] MEDS: Loratadine 10 MG Tab PO SCH (08:14)
[2017-06-07] MEDS: Apixaban 5 MG Tab PO SCH (08:14)
[2017-06-07] MEDS: Calcium Citrate/Vitamin D3 315 MG-250 Unit Tab PO SCH (08:14)
[2017-06-07] MEDS: Niacin 500 MG Tab PO SCH (08:15)
[2017-06-07] MEDS: MINOCYCLINE 100 MG PO SCH (08:15)
[2017-06-07] MEDS: Ondansetron 4 MG Tab.DIS PO PRN (08:18)
[2017-06-07] MEDS: traMADol 50 MG Tab PO PRN (08:29)
[2017-06-07] MEDS: LORazepam 0.5 MG Tab PO PRN (09:10)
[2017-06-07] MEDS: Albuterol/Ipratropium 3.0-0.5 MG/3 ML Neb Soln NEB PRN (09:13)
[2017-06-07] MEDS: B.Bifidum/B.Longum/L.Acidophilus/L.Rhamnosus (Probiotic) Cap PO SCH (11:44)
[2017-06-07 11:47] VITALS: BP 104/70
[2017-06-07] MEDS ORDERED: Albumin 25% 100 ML IV ONE (12:30)
--- NOTE | 2017-06-07 16:11 | PCM.DCSUM1 ---
Discharge Summary - Hospital Course Free Text/Narrative:: Admission diagnoses: 1. Dehydration 2. Intractable vomiting 3. Protein-calorie malnutrition 4. Debility 5. High risk of falls 6. Bullous pemphigoid 7. Atrial fibrillation, paroxysmal Discharge diagnoses: 1. Dehydration, resolved 2. Intractable vomiting, resolved 3. Protein-calorie malnutrition 4. Debility 5. High risk of falls 6. Bullous pemphigoid 7. Atrial fibrillation, paroxysmal Consultations: Dermatology Procedures: None Hospital course: Ms. Rodarte is an 82yoF with history notable for worsening debility and self- care deficits, bullous pemphigoid, and atrial fibrillation who presented to clinic with clinical and laboratory evidence of dehydration in the presence of 1 void in the prior 24 hours and elevated creatinine, intractable nausea and vomiting, and severe acute on chronic debility and high risk of falls. Due to her extremely poor baseline functional status and acute worsening of clinical status, she was admitted for IVF, IV antiemetics, and close monitoring of clinical status. She had improvement in her hydration status, but was noted to have extremely poor functional status and worsening bullous pemphigoid. Dermatology was consulted and prednisone was increased to 60mg daily with plan to decrease by 10mg weekly. Nutrition was consulted and assisted with counseling regarding increased protein intake and she was given an infusion of albumin as well. Physical therapy recommended ongoing rehabilitation and after extensive care management assistance throughout her acute stay, was discharged to swing bed status. - Discharge Data Discharge Date: 06/07/17 Discharge Disposition: DC/Tfer W/I Hosp To [place] [id number] Condition: Fair - Patient Summary/Data Consults: Consultations 05/31/17 15:57 Consult to Pediatric Care Coordinator [CONS] Routine 05/31/17 16:50 Consult to Physical Therapy [PT Evaluation and Treatment] [CONS] Routine 05/31/17 18:09 Consult to Dietary [Consult to Control Operator Flow Coat] [CONS] Routine - Discharge Plan Home Medications: Home Meds Albuterol Sulfate [Albuterol Sulfate HFA] 1 - 2 puff INH Q4HR PRN 12/09/14 [ History] Ipratropium/Albuterol Sulfate [Iprat-Albut 0.5-3(2.5) MG/3 ML] 3 ml NEB Q4H PRN 12/09/14 [History] Potassium Chloride [Klor-Con M20] 20 meq PO BID 12/09/14 [History] Levothyroxine [Synthroid] 75 mcg PO ACBREAKFAST 06/27/16 [History] traMADol HCl [Tramadol HCl] 50 mg PO TID PRN 06/27/16 [History] Gentamicin Sulfate 1 applic TOP BID 04/25/17 [History] Minocycline [Minocin] 100 mg PO BID 04/25/17 [History] Mupirocin Oint [Bactroban Oint] 1 applic TOP BID 04/25/17 [History] Ondansetron [IJD: Ondansetron ODT] 4 mg PO DAILY PRN 04/25/17 [History] hydrOXYzine HCl [Atarax] 25 mg PO Q6H PRN 04/25/17 [History] ARIPiprazole [Abilify] 2.5 mg PO QPM 05/31/17 [History] ARIPiprazole [Abilify] 5 mg PO QAM 05/31/17 [History] Apixaban [Eliquis] 5 mg PO BID 05/31/17 [History] LORazepam 0.5 mg PO BID PRN 05/31/17 [History] Loratadine 10 mg PO DAILY 05/31/17 [History] Meclizine [Antivert] 25 mg PO TID PRN 05/31/17 [History] Niacinamide [Niacin] 500 mg PO DAILY 05/31/17 [History] Omeprazole 20 mg PO DAILY 05/31/17 [History] Sennosides/Docusate Sodium [Senna-Docusate Sodium] 1 each PO BID PRN 05/31/17 [ History] Tolterodine Tartrate [Tolterodine Tartrate ER] 4 mg PO DAILY 05/31/17 [History] diphenhydrAMINE HCl [Benadryl] 25 mg PO DAILY 05/31/17 [History] - Discharge Summary/Plan Comment DC Time >30 min.: Yes - General Info Date of Service: 06/07/17 Subjective Update: Ms. Rodarte reports overall ongoing improvement in skin without new lesions forming in the last few days. Her appetite has improved; she is currently eating chili. Yesterday, she was up in the chair with meals and ambulated twice. She admits to anxiety regarding her need for medical services and wishes she could just feel better without having to "work so hard." and daughter admit to her mood, motivation, appetite, and skin being much improved in the past few days. - Patient Data Vitals - Most Recent: Last Vital Signs Temp 36.0 C 06/07/17 06:33 Pulse 96 06/07/17 09:13 Resp 20 06/07/17 09:00 BP 104/70 06/07/17 09:00 Pulse Ox 97 06/07/17 09:13 Weight - Most Recent: 89.176 kg I&O - Last 24 hours: Intake & Output 06/07/17 06/07/17 06/07/17 06:59 14:59 22:59 Intake Total 220 850 Balance 220 850 Lab Results - Last 24 hrs: Laboratory Results - last 24 hr 06/03/17 06/06/17 06/07/17 Range/Units 06:20 17:29 06:29 WBC (5.0-10.0) 10^3/uL RBC (3.80-5.50) 10^6/uL Hgb (12.0-16.0) g/dL Hct (37.0-47.0) % MCV (82.0-92.0) fL MCH (27.0-31.0) pg MCHC (32.0-36.0) g/dL RDW (11.5-14.5) % Plt Count (150-300) 10^3/uL MPV (7.4-10.4) fL Neut % (Auto) (50.0-70.0) % Lymph % (Auto) (20.0-40.0) % [place] % (Auto) (2.0-8.0) % Eos % (Auto) (1.0-3.0) % Baso % (Auto) (0.0-1.0) % Neut # (Auto) (2.5-7.0) 10^3/uL Lymph # (Auto) (1.0-4.0) 10^3/uL [place] # (Auto) (0.1-0.8) 10^3/uL Eos # (Auto) (0.1-0.3) 10^3/uL Baso # (Auto) (0.0-0.1) 10^3/uL Sodium (136-145) mmol/L Potassium (3.3-5.3) mmol/L Chloride (98-115) mmol/L Carbon Dioxide (21.0-32.0) mmol/L BUN (6-25) mg/dL Creatinine (0.51-1.17) mg/dL Est Cr Clr Drug Dosing mL/min Estimated GFR (MDRD) mL/min Glucose (70-110) mg/dL POC Glucose 125 H 68 L (74-106) mg/dl Calcium (8.7-10.3) mg/dL Total Bilirubin (0.2-1.0) mg/dL AST (15-37) U/L ALT (12-78) U/L Alkaline Phosphatase (46-116) IU/L Total Protein (6.4-8.2) g/dL Albumin (3.00-4.80) g/dL Ova & Parasites See below Parasite Rprt Status Cancelled 06/07/17 06/07/17 06/07/17 Range/Units 07:02 07:10 07:10 WBC 9.1 (5.0-10.0) 10^3/uL RBC 3.87 (3.80-5.50) 10^6/uL Hgb 11.8 L (12.0-16.0) g/dL Hct 35.9 L (37.0-47.0) % MCV 92.8 H (82.0-92.0) fL MCH 30.6 (27.0-31.0) pg MCHC 33.0 (32.0-36.0) g/dL RDW 16.6 H (11.5-14.5) % Plt Count 357 H (150-300) 10^3/uL MPV 7.6 (7.4-10.4) fL Neut % (Auto) 69.8 (50.0-70.0) % Lymph % (Auto) 22.6 (20.0-40.0) % [place] % (Auto) 6.2 (2.0-8.0) % Eos % (Auto) 0.2 L (1.0-3.0) % Baso % (Auto) 1.2 H (0.0-1.0) % Neut # (Auto) 6.3 (2.5-7.0) 10^3/uL Lymph # (Auto) 2.1 (1.0-4.0) 10^3/uL [place] # (Auto) 0.6 (0.1-0.8) 10^3/uL Eos # (Auto) 0.0 L (0.1-0.3) 10^3/uL Baso # (Auto) 0.1 (0.0-0.1) 10^3/uL Sodium 143 (136-145) mmol/L Potassium 3.8 (3.3-5.3) mmol/L Chloride 110 (98-115) mmol/L Carbon Dioxide 26.4 (21.0-32.0) mmol/L BUN 30 H (6-25) mg/dL Creatinine 0.86 (0.51-1.17) mg/dL Est Cr Clr Drug Dosing 37.40 mL/min Estimated GFR (MDRD) > 60 mL/min Glucose 96 (70-110) mg/dL POC Glucose 94 (74-106) mg/dl Calcium 8.8 (8.7-10.3) mg/dL Total Bilirubin 0.3 (0.2-1.0) mg/dL AST 37 (15-37) U/L ALT 47 (12-78) U/L Alkaline Phosphatase 154 H (46-116) IU/L Total Protein 4.9 L (6.4-8.2) g/dL Albumin 1.51 L (3.00-4.80) g/dL Ova & Parasites Parasite Rprt Status VANDANA Results - Last 24 hrs: Microbiology 06/03/17 08:00 Stool Aerobic Culture - Final Stool / Feces Med Orders - Current: Current Medications Acetaminophen (Tylenol Extra Strength) 500 mg PO Q4HR [facility] Last Admin: 06/07/17 15:53 Dose: 500 mg Albuterol/Ipratropium (Duoneb 3.0-0.5 Mg/3 Ml) 3 ml NEB Q4H PRN PRN Reason: Shortness of Breath Last Admin: 06/07/17 09:13 Dose: 3 ml Apixaban (Eliquis) 5 mg PO BID [facility] Last Admin: 06/07/17 08:14 Dose: 5 mg Aripiprazole (Abilify) 10 mg PO QAM [facility] Last Admin: 06/07/17 08:14 Dose: 10 mg Calcium Citrate (Calcium Citrate + D) 2 tab PO BID [facility] Last Admin: 06/07/17 08:14 Dose: 2 tab Al Hydroxide/Mg Hydroxide 40 ml/ Diphenhydramine HCl 12.5 mg/ Lidocaine HCl 40 ml 0 ml PO BIDAC [facility] Last Admin: 06/07/17 08:12 Dose: 15 ml Gentamicin Sulfate (Gentamicin 0.1%) 1 gm TOP DAILY [facility] Last Admin: 06/07/17 08:14 Dose: 1 applic Hydroxyzine HCl (Atarax) 25 mg PO Q6H PRN PRN Reason: Itching Last Admin: 06/04/17 06:46 Dose: 25 mg Lactobacillus Acidophilus/Rhamnosus (Multi-[place] Plus) 1 cap PO DAILY@1200 [facility] Last Admin: 06/07/17 11:44 Dose: 1 cap Levothyroxine Sodium (Synthroid) 100 mcg PO ACBREAKFAST [facility] Last Admin: 06/07/17 08:13 Dose: 100 mcg Lidocaine HCl (Xylocaine 2% Viscous) 15 ml PO Q4H PRN PRN Reason: Pain Loperamide HCl (Imodium) 2 mg PO Q4H PRN PRN Reason: Diarrhea Loratadine (Claritin) 10 mg PO DAILY [facility] Last Admin: 06/07/17 08:14 Dose: 10 mg Lorazepam (Ativan) 0.5 mg PO BID PRN PRN Reason: Anxiety Last Admin: 06/07/17 09:10 Dose: 0.5 mg Melatonin (Melatonin) 3 mg PO BEDTIME [facility] Last Admin: 06/06/17 20:27 Dose: 3 mg Metoprolol Succinate (Toprol Xl) 12.5 mg PO BEDTIME [facility] Mupirocin (Bactroban Crm) 1 gm TOP BEDTIME [facility] Last Admin: 06/06/17 20:03 Dose: 1 applic Niacin (Niacin) 500 mg PO DAILY [facility] Last Admin: 06/07/17 08:15 Dose: 500 mg Ondansetron HCl (Zofran Odt) 4 mg PO Q6H PRN PRN Reason: Nausea/Vomiting Last Admin: 06/07/17 08:18 Dose: 4 mg Minocycline [Minocin ] 100 MgOwn Med * 1 each PO BID [facility] Last Admin: 06/07/17 08:15 Dose: 1 each Prednisone (Prednisone) 50 mg PO WITHBREAKFAST [facility] Stop: 06/16/17 08:01 Prednisone (Prednisone) 40 mg PO WITHBREAKFAST [facility] Stop: 06/23/17 08:01 Prednisone (Prednisone) 60 mg PO WITHBREAKFAST [facility] Stop: 06/09/17 08:01 Last Admin: 06/07/17 08:13 Dose: 60 mg Ranitidine HCl (Zantac) 150 mg PO DAILY [facility] Last Admin: 06/07/17 08:15 Dose: 150 mg Senna/Docusate Sodium (Senna Plus) 1 tab PO BID PRN PRN Reason: Constipation Tramadol HCl (Ultram) 50 mg PO Q6HR PRN PRN Reason: Pain Last Admin: 06/07/17 08:29 Dose: 50 mg Discontinued Medications Acetaminophen (Tylenol Extra Strength) 500 mg PO Q4H PRN PRN Reason: Pain Last Admin: 05/31/17 19:40 Dose: 500 mg Aripiprazole (Abilify) 5 mg PO QAM [facility] Last Admin: 06/01/17 08:24 Dose: 5 mg Aripiprazole (Abilify) 5 mg PO ONETIME ONE Stop: 06/01/17 13:01 Last Admin: 06/01/17 14:06 Dose: 5 mg Cholecalciferol (Vitamin D3) 2,000 units PO DAILY [facility] Al Hydroxide/Mg Hydroxide 40 ml/ Diphenhydramine HCl 12.5 mg/ Lidocaine HCl 40 ml 0 ml PO BID [facility] Last Admin: 06/01/17 14:06 Dose: 1 each Gentamicin Sulfate (Gentamicin 0.1%) 0 gm TOP BID [facility] Last Admin: 06/03/17 09:42 Dose: Not Given Sodium Chloride (Normal Saline) 1,000 mls @ 125 mls/hr IV ASDIRECTED [facility] Last Admin: 06/01/17 08:23 Dose: 125 mls/hr Sodium Chloride (Normal Saline) Confirm Administered Dose 1,000 mls @ as directed .ROUTE .STK-MED ONE Stop: 05/31/17 16:47 Last Admin: 05/31/17 18:09 Dose: Not Given Sodium Chloride (Normal Saline) 1,000 mls @ 100 mls/hr IV ASDIRECTED [facility] Last Admin: 06/02/17 04:49 Dose: 100 mls/hr Sodium Chloride (Normal Saline) 1,000 mls @ 75 mls/hr IV ASDIRECTED [facility] Last Admin: 06/03/17 06:49 Dose: 75 mls/hr Albumin Human (Flexbumin 25%) 100 mls @ 50 mls/hr IV ONETIME ONE Stop: 06/07/17 14:29 Last Admin: 06/07/17 14:20 Dose: 50 mls/hr Metoprolol Tartrate (Lopressor) 12.5 mg PO BID [facility] Last Admin: 06/01/17 08:40 Dose: 12.5 mg Mupirocin (Bactroban Oint) 0 gm TOP BID [facility] Last Admin: 06/03/17 09:41 Dose: Not Given Mupirocin (Bactroban Oint) 0 gm TOP .STK-MED ONE Stop: 06/04/17 21:33 Mupirocin (Bactroban Oint) 0 gm TOP .STK-MED ONE Stop: 06/06/17 20:04 Omeprazole (Omeprazole) 20 mg PO DAILY [facility] Last Admin: 06/03/17 09:11 Dose: 20 mg Ondansetron HCl (Zofran) 4 mg IV Q6H PRN PRN Reason: Nausea/Vomiting Ondansetron HCl (Zofran) Confirm Administered Dose 4 mg .ROUTE .STK-MED ONE Stop: 05/31/17 16:47 Last Admin: 05/31/17 18:09 Dose: Not Given Prednisone (Prednisone) 10 mg PO DAILY [facility] Last Admin: 06/01/17 08:24 Dose: 10 mg Prednisone (Prednisone) 20 mg PO WITHBREAKFAST [facility] Last Admin: 06/02/17 09:06 Dose: 20 mg Prednisone (Prednisone) 10 mg PO ONETIME ONE Stop: 06/01/17 12:01 Last Admin: 06/01/17 12:07 Dose: 10 mg Prednisone (Prednisone) 40 mg PO ONETIME ONE Stop: 06/02/17 15:07 Last Admin: 06/02/17 15:57 Dose: 40 mg Tramadol HCl (Ultram) 50 mg PO Q8H PRN PRN Reason: Pain Last Admin: 05/31/17 18:48 Dose: 50 mg - Exam Physical Findings Comments:: GENERAL: Elderly white female sitting in bedside chair in no acute distress. HEENT: Normocephalic, atraumatic. Conjunctiva clear. Mucous membranes moist, no obvious oral lesions. NECK: Supple, no masses. CV: Regular rate and rhythm, no murmurs, rubs, or gallops. 2+ radial pulses. PULMONARY: Normal effort, clear to auscultation bilaterally, no wheezes, rales, or rhonchi. ABDOMEN: Positive bowel sounds, soft, nontender, nondistended. EXTREMITIES: 1+ nonpitting edema of bilateral ankles. MUSCULOSKELETAL: Moves all extremities. NEUROLOGICAL: No obvious deficits. DERMATOLOGIC: Diffuse well-demarcated red lesions ranging in size from 0.2cm in diameter to several cm in diameter with interval improvement in maceration. PSYCHIATRIC: Alert, interactive, appropriate affect, limited insight and judgment. *Q Meaningful Use (DIS) - VTE *Q VTE Criteria *Q: - Stroke *Q Stroke Criteria *Q: - AMI *Q AMI Criteria *Q:
[2017-06-10] MEDS ORDERED: predniSONE 20 MG Tab PO SCH (09:00)
[2017-06-17] MEDS ORDERED: predniSONE 20 MG Tab PO SCH (09:00)
== END 2017-06-07 15:55 | disposition swing bed (61) | DRG 641 ==
LOC: KA.MS 15:50
PROVIDERS: ADMIT Family Medicine; ATTEND Family Medicine
DX: E86.0 Dehydration (principal); E46 Unspecified protein-calorie malnutrition; L12.0 Bullous pemphigoid; R11.10 Vomiting, unspecified; R53.81 Other malaise; Z91.81 History of falling; I48.0 Paroxysmal atrial fibrillation; Z79.01 Long term (current) use of anticoagulants; Z91.14 Patient's other noncompliance with medication regimen; E03.9 Hypothyroidism, unspecified; J44.9 Chronic obstructive pulmonary disease, unspecified; K21.9 Gastro-esophageal reflux disease without esophagitis; K59.00 Constipation, unspecified; E66.9 Obesity, unspecified; Z68.30 Body mass index [BMI] 30.0-30.9, adult; I95.9 Hypotension, unspecified; E83.51 Hypocalcemia; E88.09 Other disorders of plasma-protein metabolism, not elsewhere classified; D64.9 Anemia, unspecified; Z66 Do not resuscitate; D47.3 Essential (hemorrhagic) thrombocythemia
CPT/HCPCS: 36415; 80053; 81001; 82962; 85025; 87045; 87046; 87070; 87077; 87086; 87088; 87177; 87186; 87209; 87324; 89055; 93005; 94640; 97162-GP; 97530-GP; A9270-GY; J7030; P9047

== ENCOUNTER 2017-06-07 15:33 | Inpatient (IN) | payer MEDICARE ==
[2017-06-07] MEDS ORDERED: Albuterol/Ipratropium 3.0-0.5 MG/3 ML Neb Soln NEB PRN (15:59)
[2017-06-07] MEDS ORDERED: Mupirocin Oint 22 GM Tube TOP ONE (15:59)
--- NOTE | 2017-06-07 16:12 | PCM.HP ---
H&P History of Present Illness - General Date of Service: 06/07/17 Admit Problem/Dx: Deconditioning Source of Information: Patient, Family, Old Records History Limitations: Reports: No Limitations - History of Present Illness Initial Comments - Free Text/Narative: Ms. Rodarte reports overall ongoing improvement in skin without new lesions forming in the last few days. Her appetite has improved; she is currently eating chili. Yesterday, she was up in the chair with meals and ambulated twice. She admits to anxiety regarding her need for medical services and wishes she could just feel better without having to "work so hard." and daughter admit to her mood, motivation, appetite, and skin being much improved in the past few days. - Related Data Allergies/Adverse Reactions: Allergies Allergy/AdvReac Type Severity Reaction Status Date / Time ciprofloxacin [From Cipro] Allergy Hives Verified 05/31/17 16:45 codeine Allergy Hives Verified 05/31/17 16:45 ibuprofen [From Motrin] Allergy Hives Verified 05/31/17 16:45 indomethacin [From Indocin] Allergy Nausea Verified 05/31/17 17:20 morphine Allergy Hives Verified 05/31/17 16:45 rosuvastatin Allergy Cannot Verified 05/31/17 16:45 Remember Sulfa (Sulfonamide Allergy Hives Verified 05/31/17 16:45 Antibiotics) Home Medications: Home Meds Albuterol Sulfate [Albuterol Sulfate HFA] 1 - 2 puff INH Q4HR PRN 12/09/14 [ History] Ipratropium/Albuterol Sulfate [Iprat-Albut 0.5-3(2.5) MG/3 ML] 3 ml NEB Q4H PRN 12/09/14 [History] Potassium Chloride [Klor-Con M20] 20 meq PO BID 12/09/14 [History] Levothyroxine [Synthroid] 75 mcg PO ACBREAKFAST 06/27/16 [History] traMADol HCl [Tramadol HCl] 50 mg PO TID PRN 06/27/16 [History] Gentamicin Sulfate 1 applic TOP BID 04/25/17 [History] Minocycline [Minocin] 100 mg PO BID 04/25/17 [History] Mupirocin Oint [Bactroban Oint] 1 applic TOP BID 04/25/17 [History] Ondansetron [IJD: Ondansetron ODT] 4 mg PO DAILY PRN 04/25/17 [History] hydrOXYzine HCl [Atarax] 25 mg PO Q6H PRN 04/25/17 [History] ARIPiprazole [Abilify] 2.5 mg PO QPM 05/31/17 [History] ARIPiprazole [Abilify] 5 mg PO QAM 05/31/17 [History] Apixaban [Eliquis] 5 mg PO BID 05/31/17 [History] LORazepam 0.5 mg PO BID PRN 05/31/17 [History] Loratadine 10 mg PO DAILY 05/31/17 [History] Meclizine [Antivert] 25 mg PO TID PRN 05/31/17 [History] Niacinamide [Niacin] 500 mg PO DAILY 05/31/17 [History] Omeprazole 20 mg PO DAILY 05/31/17 [History] Sennosides/Docusate Sodium [Senna-Docusate Sodium] 1 each PO BID PRN 05/31/17 [ History] Tolterodine Tartrate [Tolterodine Tartrate ER] 4 mg PO DAILY 05/31/17 [History] diphenhydrAMINE HCl [Benadryl] 25 mg PO DAILY 05/31/17 [History] Past Medical History HEENT History: Reports: Cataract, Impaired Vision Cardiovascular History: Reports: Arrhythmia, Blood Clots/VTE/DVT, Hypertension Respiratory History: Reports: Asthma, Bronchitis, Recurrent Gastrointestinal History: Reports: Cholelithiasis, Diverticulosis Other Gastrointestinal History: heartburn Genitourinary History: Reports: UTI, Recurrent METALWORKER History: Reports: Fibroids, Musculoskeletal History: Reports: Arthritis Other Musculoskeletal History: compression fx to back Neurological History: Reports: Head Trauma Psychiatric History: Reports: Anxiety, Other (See Below) Other Psychiatric History: H/O possible depression/anxiety quit taking meds Endocrine/Metabolic History: Reports: Hypothyroidism, Obesity/BMI 30+ Immunologic History: Reports: Immunosuppression Dermatologic History: Reports: Other (See Below) Other Dermatologic History: dry/itchy skin. Scratch sanchez to Bilat lower ext, right upper arm, right shoulder blade, lower abdomen. shingles in 2013. Bullous pemphigoid covering body. - Infectious Disease History Infectious Disease History: Reports: Chicken Pox, Shingles - Past Surgical History HEENT Surgical History: Reports: Cataract Surgery Musculoskeletal Surgical History: Reports: Other (See Below) Other Musculoskeletal Surgeries/Procedures:: broken rt hip, pins in place, broken rt ankle Social & Family History - Family History Family Medical History: Noncontributory - Tobacco Use Smoking Status *Q: Never Smoker Second Hand Smoke Exposure: No - Caffeine Use Caffeine Use: Reports: Soda, Tea - Alcohol Use Days Per Week of Alcohol Use: 0 - Recreational Drug Use Recreational Drug Use: No - Living Situation & Occupation Living situation: Reports: Occupation: Retired H&P Review of Systems - Review of Systems: Review Of Systems: ROS reveals no pertinent complaints other than HPI. Exam - Exam Exam: See Below - Exam Physical Exam Comments:: GENERAL: Elderly white female sitting in bedside chair in no acute distress. HEENT: Normocephalic, atraumatic. Conjunctiva clear. Mucous membranes moist, no obvious oral lesions. NECK: Supple, no masses. CV: Regular rate and rhythm, no murmurs, rubs, or gallops. 2+ radial pulses. PULMONARY: Normal effort, clear to auscultation bilaterally, no wheezes, rales, or rhonchi. ABDOMEN: Positive bowel sounds, soft, nontender, nondistended. EXTREMITIES: 1+ nonpitting edema of bilateral ankles. MUSCULOSKELETAL: Moves all extremities. NEUROLOGICAL: No obvious deficits. DERMATOLOGIC: Diffuse well-demarcated red lesions ranging in size from 0.2cm in diameter to several cm in diameter with interval improvement in maceration. PSYCHIATRIC: Alert, interactive, appropriate affect, limited insight and judgment. *Q Meaningful Use (ADM) - VTE *Q VTE Criteria *Q: - Stroke *Q Stroke Criteria *Q: - AMI *Q AMI Criteria *Q: Problem List Initiated/Reviewed/Updated: Yes Orders Last 24hrs: Active Orders 24 hr Category Date Time Status Patient Status [ADT] Routine ADT 06/07/17 15:59 Ordered Ambulate [RC] ASDIRECTED Care 06/07/17 15:59 Active Blood Glucose Check, Bedside [RC] BIDAC Care 06/07/17 15:59 Active Intake and Output [RC] QSHIFT Care 06/07/17 15:59 Active Oxygen Therapy [RC] PRN Care 06/07/17 15:59 Active RT Aerosol Therapy [RC] ASDIRECTED Care 06/07/17 15:59 Active Shower [May Shower] [RC] DAILY Care 06/07/17 15:59 Active Supplement (Dietary) [Dietary Supplements] [RC] TID Care 06/07/17 15:59 Active Vital Signs [RC] Q4H Care 06/07/17 15:59 Active Consult to Dietary [Consult to Percussion Tuner] [CONS] Cons 06/07/17 15:59 Active Routine Consult to Physical Therapy [PT Evaluation and Cons 06/07/17 15:59 Active Treatment] [CONS] Routine Consult to Natural Gas Technician [CONS] Routine Cons 06/07/17 15:59 Active Regular Diet [DIET] Diet 06/07/17 Breakfast Active ARIPiprazole [Abilify] Med 06/08/17 09:00 Ordered 10 mg PO QAM Acetaminophen [Tylenol Extra Strength] Med 06/07/17 19:00 Ordered 500 mg PO Q4HR Albuterol/Ipratropium [DuoNeb 3.0-0.5 MG/3 ML] Med 06/07/17 15:59 Ordered 3 ml NEB Q4H PRN Alum Hydrox/Mag Hydrox/Simeth [Mag-Al Plus] 40 ml Med 06/07/17 17:30 Ordered diphenhydrAMINE [Benadryl] 12.5 mg Lidocaine 2% [Xylocaine 2% Viscous] 40 ml PO BIDAC Apixaban [Eliquis] Med 06/07/17 21:00 Ordered 5 mg PO BID B.Bif/B.Long/L.Acidoph/L.Rhamn [Multi-Anne Marie Plus] Med 06/08/17 12:00 Ordered 1 cap PO DAILY@1200 Calcium Citrate/Vitamin D3 [Calcium Citrate + D] Med 06/07/17 21:00 Ordered 2 tab PO BID Docusate Sodium/Sennosides [Senna Plus] Med 06/07/17 15:59 Ordered 1 tab PO BID PRN Gentamicin [Gentamicin 0.1%] Med 06/08/17 09:00 Ordered 1 gm TOP DAILY LORazepam [Ativan] Med 06/07/17 15:59 Ordered 0.5 mg PO BID PRN Levothyroxine [Synthroid] Med 06/08/17 07:30 Ordered 100 mcg PO ACBREAKFAST Loratadine [Claritin] Med 06/08/17 09:00 Ordered 10 mg PO DAILY Melatonin Med 06/07/17 21:00 Ordered 3 mg PO BEDTIME Metoprolol Succinate [Toprol XL] Med 06/07/17 21:00 Hold 12.5 mg PO BEDTIME Mupirocin Oint [Bactroban Oint] Med 06/07/17 15:59 Once 0 gm TOP .STK-MED ONE Niacin Med 06/08/17 09:00 Ordered 500 mg PO DAILY Ondansetron [Zofran ODT] Med 06/07/17 15:59 Ordered 4 mg PO Q6H PRN Patient's Own Medication [Ptom] Med 06/07/17 21:00 Ordered 1 each PO BID Ranitidine [Zantac] Med 06/08/17 09:00 Ordered 150 mg PO DAILY hydrOXYzine HCl [Atarax] Med 06/07/17 15:59 Ordered 25 mg PO Q6H PRN predniSONE Med 06/17/17 09:00 Ordered 40 mg PO WITHBREAKFAST predniSONE Med 06/10/17 09:00 Ordered 50 mg PO WITHBREAKFAST predniSONE Med 06/08/17 08:00 Ordered 60 mg PO WITHBREAKFAST traMADol [Ultram] Med 06/07/17 15:59 Ordered 50 mg PO Q6HR PRN Isolation [COMM] Routine Oth 06/07/17 15:59 Ordered Resuscitation Status Routine Resus Stat 06/07/17 16:10 Ordered Medication Orders Acetaminophen (Tylenol Extra Strength) 500 mg PO Q4HR [facility] Albuterol/Ipratropium (Duoneb 3.0-0.5 Mg/3 Ml) 3 ml NEB Q4H PRN PRN Reason: Shortness of Breath Apixaban (Eliquis) 5 mg PO BID [facility] Aripiprazole (Abilify) 10 mg PO QAM [facility] Calcium Citrate (Calcium Citrate + D) 2 tab PO BID OSI[facility] Al Hydroxide/Mg Hydroxide 40 ml/ Diphenhydramine HCl 12.5 mg/ Lidocaine HCl 40 ml 0 ml PO BIDAC [facility] Gentamicin Sulfate (Gentamicin 0.1%) 1 gm TOP DAILY [facility] Hydroxyzine HCl (Atarax) 25 mg PO Q6H PRN PRN Reason: Itching Lactobacillus Acidophilus/Rhamnosus (Multi-Anne Marie Plus) 1 cap PO DAILY@1200 [facility] Levothyroxine Sodium (Synthroid) 100 mcg PO ACBREAKFAST OSI[facility] Loratadine (Claritin) 10 mg PO DAILY [facility] Lorazepam (Ativan) 0.5 mg PO BID PRN PRN Reason: Anxiety Melatonin (Melatonin) 3 mg PO BEDTIME [facility] Metoprolol Succinate (Toprol Xl) 12.5 mg PO BEDTIME [facility] Mupirocin (Bactroban Oint) 0 gm TOP .STK-MED ONE Stop: 06/07/17 16:00 Niacin (Niacin) 500 mg PO DAILY [facility] Ondansetron HCl (Zofran Odt) 4 mg PO Q6H PRN PRN Reason: Nausea/Vomiting Patient Own Medication (Ptom) 1 each PO BID [facility] Prednisone (Prednisone) 50 mg PO WITHBREAKFAST [facility] Stop: 06/16/17 08:01 Prednisone (Prednisone) 40 mg PO WITHBREAKFAST [facility] Stop: 06/23/17 08:01 Prednisone (Prednisone) 60 mg PO WITHBREAKFAST [facility] Stop: 06/09/17 08:01 Ranitidine HCl (Zantac) 150 mg PO DAILY [facility] Senna/Docusate Sodium (Senna Plus) 1 tab PO BID PRN PRN Reason: Constipation Tramadol HCl (Ultram) 50 mg PO Q6HR PRN PRN Reason: Pain Assessment/Plan Comment:: Ms. Rodarte is an 82yoF with history notable for worsening debility and self- care deficits, bullous pemphigoid, and depression who presented to clinic on 05/31/17 with clinical and laboratory evidence of dehydration in the presence of 1 void in the prior 24 hours and elevated creatinine, intractable nausea and vomiting, and severe acute on chronic debility and high risk of falls. Due to her extremely poor baseline functional status and acute worsening of clinical status, she was admitted for IVF, IV antiemetics, and close monitoring of clinical status. She had improvement in her hydration status, but was noted to have extremely poor functional status and worsening bullous pemphigoid. Dermatology was consulted and prednisone was increased to 60mg daily with plan to decrease by 10mg weekly. Nutrition was consulted and assisted with counseling regarding increased protein intake and she was given an infusion of albumin as well. Physical therapy recommended ongoing rehabilitation and after extensive care management assistance throughout her acute stay, is being admitted to swing bed status for rehabilitation. # Deconditioning: Physical therapy rehabilitation is the most critical component of her hope of discharge to home with her daughter in [place] especially given her frequent recent falls and debility. # Bullous pemphigoid: Improvement with increased prednisone following dermatology consultation during acute stay. Will decrease by 10mg weekly until at 40mg when she is recommended for outpatient dermatology follow-up. Continue topical mupirocin and gentamicin to macerated areas and minocycline and nicotinamide for baseline control. Continue hydroxyzine as needed for itching. In the setting of chronic steroid use, continue H2B and Ca/D as well as BG monitoring. In the setting of chronic antibiotic use, continue probiotic. # Protein calorie malnutrition: Received albumin infusion 06/07. Recheck CMP in 1 week. Continue with recommendations per nutrition. # Depression, major/Generalized anxiety disorder: Recent worsening and associated self-care deficits. Abilify recently increased with improvement. Continue lorazepam as needed. # Thrombocytosis: Reactive. Chronic conditions: # COPD: DuoNebs prn. # Atrial fibrillation, paroxysmal: Stable. Apixaban and metoprolol. # GERD: Stable. Ranitidine. # Constipation: Stable. Docusate. # Hypothyroidism: 05/31 TSH 15.53. Levothyroxine increased to 100mcg. Recheck TSH in July. # Anemia of chronic disease: Stable. # Chronic pain: Stable. Tylenol and tramadol. # Seasonal allergies: Stable. Loratadine. Hospitalization details: # FEN: No IVF. Electrolytes normal. Regular diet with increased protein as recommended by nutrition. # PPX: Anticoagulated on apixaban, so no other pharmacologic DVT ppx. Melatonin for delirium ppx. # Code status: DNR/DNI. # Emergency contact: Daughter/Brianne MCGUIRE. # Disposition: Admit to [facility] in swing bed status for rehabilitation. Eventual disposition is for her to go to [place] to live with Brianne flaherty. Appreciate social media job titles assistance with ongoing care management.
[2017-06-07] MEDS: Alum Hydrox/Mag Hydrox/Simeth 40 ML, diphenhydrAMINE 12.5 MG, Lidocaine 2% 40 ML PO SCH ×3 (17:31)
[2017-06-07] MEDS: Acetaminophen 500 MG Tab PO SCH ×2 (19:36→22:37)
[2017-06-07] MEDS: Calcium Citrate/Vitamin D3 315 MG-250 Unit Tab PO SCH (20:57)
[2017-06-07] MEDS: Apixaban 5 MG Tab PO SCH (20:57)
[2017-06-07] MEDS: Mupirocin Oint 22 GM Tube TOP SCH (20:58)
[2017-06-07] MEDS: Melatonin 3 MG Tab PO SCH (20:59)
[2017-06-07] MEDS ORDERED: MINOCYCLINE 100 MG PO SCH (21:00)
[2017-06-07] MEDS: traMADol 50 MG Tab PO PRN (22:36)
[2017-06-08] MEDS: Acetaminophen 500 MG Tab PO SCH ×7 (03:42→23:05)
[2017-06-08] MEDS: Levothyroxine 100 MCG Tab PO SCH (07:33)
[2017-06-08] MEDS: Alum Hydrox/Mag Hydrox/Simeth 40 ML, diphenhydrAMINE 12.5 MG, Lidocaine 2% 40 ML PO SCH ×6 (07:35→17:52)
[2017-06-08] MEDS: ARIPiprazole 5 MG Tab PO SCH (08:06)
[2017-06-08] MEDS: predniSONE 20 MG Tab PO SCH (08:06)
[2017-06-08] MEDS: Calcium Citrate/Vitamin D3 315 MG-250 Unit Tab PO SCH ×2 (08:07→17:52)
[2017-06-08] MEDS: Loratadine 10 MG Tab PO SCH (08:08)
[2017-06-08] MEDS: Niacin 500 MG Tab PO SCH (08:09)
[2017-06-08] MEDS: Apixaban 5 MG Tab PO SCH ×2 (08:09→21:06)
[2017-06-08] MEDS: Gentamicin 0.1% Crm 15 GM Tube TOP SCH (08:56)
[2017-06-08] MEDS: B.Bifidum/B.Longum/L.Acidophilus/L.Rhamnosus (Probiotic) Cap PO SCH (11:13)
[2017-06-08] MEDS: Ondansetron 4 MG Tab.DIS PO PRN (16:20)
[2017-06-08] MEDS: LORazepam 0.5 MG Tab PO PRN (16:56)
[2017-06-08] MEDS: Mupirocin Oint 22 GM Tube TOP SCH (21:00)
[2017-06-08] MEDS: Melatonin 3 MG Tab PO SCH (21:06)
[2017-06-08] MEDS: Metoprolol Succinate 25 MG Tab.ER PO SCH (21:08)
[2017-06-08] MEDS: traMADol 50 MG Tab PO PRN (21:08)
[2017-06-08] MEDS: hydrOXYzine HCl 25 MG Tab PO PRN (23:57)
[2017-06-09] MEDS: Acetaminophen 500 MG Tab PO SCH ×6 (02:31→22:28)
[2017-06-09] MEDS: traMADol 50 MG Tab PO PRN (03:58)
[2017-06-09] MEDS: Alum Hydrox/Mag Hydrox/Simeth 40 ML, diphenhydrAMINE 12.5 MG, Lidocaine 2% 40 ML PO SCH ×6 (07:39→17:30)
[2017-06-09] MEDS: Levothyroxine 100 MCG Tab PO SCH (07:39)
[2017-06-09] MEDS: predniSONE 20 MG Tab PO SCH (08:39)
[2017-06-09] MEDS: Gentamicin 0.1% Crm 15 GM Tube TOP SCH (08:41)
[2017-06-09] MEDS: Apixaban 5 MG Tab PO SCH ×2 (08:41→20:46)
[2017-06-09] MEDS: Niacin 500 MG Tab PO SCH (08:41)
[2017-06-09] MEDS: Loratadine 10 MG Tab PO SCH (08:41)
[2017-06-09] MEDS: ARIPiprazole 5 MG Tab PO SCH (08:42)
[2017-06-09] MEDS: Calcium Citrate/Vitamin D3 315 MG-250 Unit Tab PO SCH ×2 (11:40→18:00)
[2017-06-09] MEDS: B.Bifidum/B.Longum/L.Acidophilus/L.Rhamnosus (Probiotic) Cap PO SCH (11:41)
[2017-06-09] MEDS: Melatonin 3 MG Tab PO SCH (20:46)
[2017-06-09] MEDS: Metoprolol Succinate 25 MG Tab.ER PO SCH (20:46)
[2017-06-09] MEDS: Mupirocin Oint 22 GM Tube TOP SCH (20:49)
[2017-06-10] MEDS: Acetaminophen 500 MG Tab PO SCH ×6 (02:19→22:19)
[2017-06-10] MEDS: Levothyroxine 100 MCG Tab PO SCH (07:34)
[2017-06-10] MEDS: Alum Hydrox/Mag Hydrox/Simeth 40 ML, diphenhydrAMINE 12.5 MG, Lidocaine 2% 40 ML PO SCH ×6 (07:34→17:50)
[2017-06-10] MEDS: ARIPiprazole 5 MG Tab PO SCH (08:06)
[2017-06-10] MEDS: predniSONE 20 MG Tab PO SCH (08:07)
[2017-06-10] MEDS: Apixaban 5 MG Tab PO SCH ×2 (08:07→20:59)
[2017-06-10] MEDS: Loratadine 10 MG Tab PO SCH (08:07)
[2017-06-10] MEDS: Niacin 500 MG Tab PO SCH (08:07)
[2017-06-10] MEDS: Ondansetron 4 MG Tab.DIS PO PRN ×2 (08:16→18:29)
[2017-06-10] MEDS: Gentamicin 0.1% Crm 15 GM Tube TOP SCH (09:12)
[2017-06-10] MEDS: Calcium Citrate/Vitamin D3 315 MG-250 Unit Tab PO SCH ×2 (11:02→17:50)
[2017-06-10] MEDS: Escitalopram 10 MG Tab PO SCH (11:03)
[2017-06-10] MEDS: B.Bifidum/B.Longum/L.Acidophilus/L.Rhamnosus (Probiotic) Cap PO SCH (11:03)
[2017-06-10] MEDS: traMADol 50 MG Tab PO PRN (13:19)
[2017-06-10] MEDS ORDERED: Furosemide 40 MG/4 ML VIAL IVPUSH ONE (16:52)
[2017-06-10] MEDS: LORazepam 0.5 MG Tab PO PRN (20:58)
[2017-06-10] MEDS: Metoprolol Succinate 25 MG Tab.ER PO SCH (20:59)
[2017-06-10] MEDS: Melatonin 3 MG Tab PO SCH (20:59)
[2017-06-10] MEDS: Mupirocin Oint 22 GM Tube TOP SCH (21:00)
[2017-06-11] MEDS: Acetaminophen 500 MG Tab PO SCH ×6 (02:45→23:10)
[2017-06-11] MEDS: Alum Hydrox/Mag Hydrox/Simeth 40 ML, diphenhydrAMINE 12.5 MG, Lidocaine 2% 40 ML PO SCH ×6 (08:00→17:44)
[2017-06-11] MEDS: Levothyroxine 100 MCG Tab PO SCH (08:00)
[2017-06-11] MEDS: predniSONE 20 MG Tab PO SCH (08:00)
[2017-06-11] MEDS: Loratadine 10 MG Tab PO SCH (09:06)
[2017-06-11] MEDS: ARIPiprazole 5 MG Tab PO SCH (09:06)
[2017-06-11] MEDS: Escitalopram 10 MG Tab PO SCH (09:07)
[2017-06-11] MEDS: Apixaban 5 MG Tab PO SCH ×2 (09:07→20:27)
[2017-06-11] MEDS: Niacin 500 MG Tab PO SCH (09:07)
--- NOTE | 2017-06-11 09:48 | PCM.PN ---
- General Info Date of Service: 06/11/17 Functional Status: Reports: Pain Controlled, Tolerating Diet, Ambulating, Urinating, Incentive Spirometry. Denies: New Symptoms - Review of Systems General: Reports: Weakness. Denies: Fever HEENT: Reports: No Symptoms Pulmonary: Reports: No Symptoms Cardiovascular: Reports: Edema (Extremities edema and cheeks, on high-dose steroids) Gastrointestinal: Reports: No Symptoms Genitourinary: Reports: No Symptoms Musculoskeletal: Reports: No Symptoms Skin: Reports: Rash (Improving rash, drying up except for breast, no new forming blisters) Neurological: Reports: Weakness Psychiatric: Denies: Depression (Increased Abilify last week, added Lexapro couple days ago good affect seem to be improving) - Patient Data Vitals - Most Recent: Last Vital Signs Temp 97.9 F 06/11/17 07:00 Pulse 75 06/11/17 07:00 Resp 20 06/11/17 07:00 BP 128/90 06/11/17 07:00 Pulse Ox 92 L 06/11/17 07:00 Weight - Most Recent: 207 lb 6 oz I&O - Last 24 Hours: Intake & Output 06/10/17 06/11/17 06/11/17 22:59 06:59 14:59 Intake Total 740 250 Balance 740 250 Lab Results Last 24 Hours: Laboratory Results - last 24 hr 06/10/17 06/11/17 Range/Units 17:49 06:18 POC Glucose 182 H 85 (74-106) mg/dl Med Orders - Current: Current Medications Acetaminophen (Tylenol Extra Strength) 500 mg PO Q4HR [facility] Last Admin: 06/11/17 06:05 Dose: 500 mg Albuterol/Ipratropium (Duoneb 3.0-0.5 Mg/3 Ml) 3 ml NEB Q4H PRN PRN Reason: Shortness of Breath Apixaban (Eliquis) 5 mg PO BID [facility] Last Admin: 06/11/17 09:07 Dose: 5 mg Aripiprazole (Abilify) 10 mg PO QAM [facility] Last Admin: 06/11/17 09:06 Dose: 10 mg Calcium Citrate (Calcium Citrate + D) 2 tab PO BID@1200,1800 [facility] Last Admin: 06/10/17 17:50 Dose: 2 tab Al Hydroxide/Mg Hydroxide 40 ml/ Diphenhydramine HCl 12.5 mg/ Lidocaine HCl 40 ml 0 ml PO BIDAC [facility] Last Admin: 06/11/17 08:00 Dose: 15 ml Escitalopram Oxalate (Lexapro) 10 mg PO DAILY [facility] Last Admin: 06/11/17 09:07 Dose: 10 mg Gentamicin Sulfate (Gentamicin 0.1%) 0 gm TOP DAILY [facility] Last Admin: 06/10/17 09:12 Dose: 1 applic Hydroxyzine HCl (Atarax) 25 mg PO Q6H PRN PRN Reason: Itching Last Admin: 06/08/17 23:57 Dose: 25 mg Lactobacillus Acidophilus/Rhamnosus (Multi-Anne Marie Plus) 1 cap PO DAILY@1200 [facility] Last Admin: 06/10/17 11:03 Dose: 1 cap Levothyroxine Sodium (Synthroid) 100 mcg PO ACBREAKFAST [facility] Last Admin: 06/11/17 08:00 Dose: 100 mcg Loratadine (Claritin) 10 mg PO DAILY [facility] Last Admin: 06/11/17 09:06 Dose: 10 mg Lorazepam (Ativan) 0.5 mg PO BID PRN PRN Reason: Anxiety Last Admin: 06/10/17 20:58 Dose: 0.5 mg Melatonin (Melatonin) 3 mg PO BEDTIME [facility] Last Admin: 06/10/17 20:59 Dose: 3 mg Metoprolol Succinate (Toprol Xl) 12.5 mg PO BEDTIME [facility] Last Admin: 06/10/17 20:59 Dose: 12.5 mg Minocycline HCl (Minocin) 100 mg PO BID [facility] Last Admin: 06/11/17 09:07 Dose: 100 mg Mupirocin (Bactroban Oint) 1 gm TOP BEDTIME [facility] Last Admin: 06/10/17 21:00 Dose: 1 applic Niacin (Niacin) 500 mg PO DAILY [facility] Last Admin: 06/11/17 09:07 Dose: 500 mg Ondansetron HCl (Zofran Odt) 4 mg PO Q6H PRN PRN Reason: Nausea/Vomiting Last Admin: 06/10/17 18:29 Dose: 4 mg Prednisone (Prednisone) 50 mg PO WITHBREAKFAST [facility] Stop: 06/16/17 08:01 Last Admin: 06/11/17 08:00 Dose: 50 mg Prednisone (Prednisone) 40 mg PO WITHBREAKFAST [facility] Stop: 06/23/17 08:01 Ranitidine HCl (Zantac) 150 mg PO DAILY [facility] Last Admin: 06/11/17 09:07 Dose: 150 mg Senna/Docusate Sodium (Senna Plus) 1 tab PO BID PRN PRN Reason: Constipation Tramadol HCl (Ultram) 50 mg PO Q6HR PRN PRN Reason: Pain Last Admin: 06/10/17 13:19 Dose: 50 mg Discontinued Medications Calcium Citrate (Calcium Citrate + D) 2 tab PO BID [facility] Last Admin: 06/08/17 08:07 Dose: 2 tab Mupirocin (Bactroban Oint) 0 gm TOP .STK-MED ONE Stop: 06/07/17 16:00 Patient's Own Medication* Minocycline 100 Mg * * 1 each PO BID [facility] Prednisone (Prednisone) 60 mg PO WITHBREAKFAST [facility] Stop: 06/09/17 08:01 Last Admin: 06/09/17 08:39 Dose: 60 mg - Exam Quality Assessment: No: Supplemental Oxygen General: Alert, Oriented, Cooperative, No Acute Distress Neck: Supple Lungs: Clear to Auscultation, Normal Respiratory Effort Cardiovascular: Regular Rate, Regular Rhythm GI/Abdominal Exam: Soft, No Distention (Female) Exam: Deferred Back Exam: No: CVA Tenderness (L), CVA Tenderness (R) Peripheral Pulses: 2+: Brachial (R), Radial (L) Skin: Other (Bleeding this morning on rounds, abdominal area, appears down was sticking to her skin quite a bit of blood loss. Will place Telfa dressing) Wound/Incisions: No Drainage, Erythema Improving (Overall improving bullous, drying, less erythremia with improving and decreasing in her inflammation, less coalescing) Neurological: Normal Speech, Sensation Intact Psy/Mental Status: Alert, Normal Affect, Normal Mood. No: Anxious - Problem List Review Problem List Initiated/Reviewed/Updated: Yes - My Orders Last 24 Hours: My Active Orders 06/10/17 10:00 Antiembolic Devices [RC] 0900,2100 06/10/17 10:30 Escitalopram [Lexapro] 10 mg PO DAILY - Plan Plan:: Ms. Rodarte is an 82yoF with history notable for worsening debility and self- care deficits, bullous pemphigoid, and depression who presented to clinic on 05/31/17 with clinical and laboratory evidence of dehydration in the presence of 1 void in the prior 24 hours and elevated creatinine, intractable nausea and vomiting, and severe acute on chronic debility and high risk of falls. Due to her extremely poor baseline functional status and acute worsening of clinical status, she was admitted for IVF, IV antiemetics, and close monitoring of clinical status. She had improvement in her hydration status, but was noted to have extremely poor functional status and worsening bullous pemphigoid. Dermatology was consulted and prednisone was increased to 60mg daily with plan to decrease by 10mg weekly. Nutrition was consulted and assisted with counseling regarding increased protein intake and she was given an infusion of albumin as well. Physical therapy recommended ongoing rehabilitation and after extensive care management assistance throughout her acute stay, is being admitted to swing bed status for rehabilitation. Bullous Pemphigoid INTEGUMENTARY ASSESSMENT Although she still has open areas very little weeping (except profound weeping abdominal wound this morning) no newly forming, much less prutitic vesicles and bulla with erythematous skin eruptions throughout her body including but not limited to back, breast, abdomen, arms, lower extremities, erosion with notable improvement in inflammatory hyperpigmentation--improving in her flexural compartments, see scanned pictures for initial presentation on admission. Controlling of her associated pruritus. Fingernails have been clipped, longer needs hands wrapped, on tapering steroids. Preventing associated complications such as worsening osteoporosis or GI ulceration. Since topical cream extremely nursing intensive will change to daily treatments of topical creams however continue with minocycline. Deconditioning: Physical therapy rehabilitation is the most critical component of her hope of discharge to home with her daughter in [place] especially given her frequent recent falls and debility. Os likely will be discharged next week. Will crawl out past next week for picture ID in order for her to board plane. History of atrial fibrillation, currently NSR, [id number], factor Xa inhibitor twice a day. Creatinine acceptable, improving in her MAP, now on once a day beta ilana. Depression, profound on admission and the past few weeks, was on monotherapy Abilify was recently increased, however I did place her on Lexapro. Much improvement. Hypoalbuminemia, profound, lagging indicator, likely combination of protein malnutrition and degradation due to autoimmune inflammatory state, UA neg for proteinuria, nutritional supplementation. Did receive albumin infusion-- alkaline phosphatase slightly high, total protein low, she does not eat certain meats, will continue to monitor this. Prophylaxis probiotics since on multiple Abx, Hypotension, improvement, decreased beta ilana, changed to daily last week for improve patient compliance. Hypocalcemia; Pseudo, nutritional consultation with supppementation dietary. Asympomatic Bacteruria; monitor for sx, no treatment for now with abx. Anemia; microcytic, normochromic, anisocytosis, hold off of full workup for now. Reactive thrombocytosis, neutrophia very mild, no fever, mild, monitor. Pain Control stategies; change Tylenol to scheduled. Tramadol when necessary prior to shower/activities/PT etc. Hypothyroidism, on thyroid replacement therapy. Obesity, confounding. Osteoporosis, I do not see a DEXA scan for BMD, however since increasing prednisone will need improved protection, maximize calcium/vitamin D3, consider biophasphonate. Self-care neglect, confounded by profound depression, however much improvement, recently added Lexapro to her increased dose of Abilify. Component of self- care neglect. GI prophylaxis; since on corticosteroids placed her on antihistamine ilana H2. DVT prophylaxis, cross covered with Apixaban. Creatinine acceptable Melatonin for delirium prophylaxis Immunocompromised host, corticosteroids and integumentary breakdown. Consultations: Dermatology [facility]. Recommend 60 mg of prednisone per day with stepdown therapy of 10 mg per week. They will see her as outpatient once she reaches 40 mg per day. CODE STATUS, DO NOT RESUSCITATE Discharge planning, likely could be discharged next week late in the care of her daughter to travel to [place] to stay with her.
[2017-06-11] MEDS: Gentamicin 0.1% Crm 15 GM Tube TOP SCH (10:08)
[2017-06-11] MEDS: B.Bifidum/B.Longum/L.Acidophilus/L.Rhamnosus (Probiotic) Cap PO SCH (11:37)
[2017-06-11] MEDS: Calcium Citrate/Vitamin D3 315 MG-250 Unit Tab PO SCH ×2 (11:37→17:46)
[2017-06-11] MEDS: Melatonin 3 MG Tab PO SCH (20:27)
[2017-06-11] MEDS: Metoprolol Succinate 25 MG Tab.ER PO SCH (20:30)
[2017-06-11] MEDS: Mupirocin Oint 22 GM Tube TOP SCH (20:36)
[2017-06-11] MEDS: traMADol 50 MG Tab PO PRN (20:46)
[2017-06-12] MEDS: Acetaminophen 500 MG Tab PO SCH ×6 (03:24→23:19)
[2017-06-12] MEDS: Niacin 500 MG Tab PO SCH (08:30)
[2017-06-12] MEDS: Escitalopram 10 MG Tab PO SCH (08:31)
[2017-06-12] MEDS: Levothyroxine 100 MCG Tab PO SCH (08:31)
[2017-06-12] MEDS: Loratadine 10 MG Tab PO SCH (08:31)
[2017-06-12] MEDS: Apixaban 5 MG Tab PO SCH ×2 (08:31→20:48)
[2017-06-12] MEDS: ARIPiprazole 5 MG Tab PO SCH (08:31)
[2017-06-12] MEDS: predniSONE 20 MG Tab PO SCH (08:32)
[2017-06-12] MEDS: Alum Hydrox/Mag Hydrox/Simeth 40 ML, diphenhydrAMINE 12.5 MG, Lidocaine 2% 40 ML PO SCH ×6 (10:03→17:32)
[2017-06-12] MEDS: Gentamicin 0.1% Crm 15 GM Tube TOP SCH (10:47)
[2017-06-12] MEDS: B.Bifidum/B.Longum/L.Acidophilus/L.Rhamnosus (Probiotic) Cap PO SCH (13:36)
[2017-06-12] MEDS: Calcium Citrate/Vitamin D3 315 MG-250 Unit Tab PO SCH ×2 (13:36→17:33)
[2017-06-12] MEDS: LORazepam 0.5 MG Tab PO PRN (19:29)
[2017-06-12] MEDS: Metoprolol Succinate 25 MG Tab.ER PO SCH (20:49)
[2017-06-12] MEDS: Mupirocin Oint 22 GM Tube TOP SCH (20:54)
[2017-06-12] MEDS: Melatonin 3 MG Tab PO SCH (20:55)
[2017-06-13] MEDS: Acetaminophen 500 MG Tab PO SCH ×4 (06:42→20:15)
[2017-06-13] MEDS: Alum Hydrox/Mag Hydrox/Simeth 40 ML, diphenhydrAMINE 12.5 MG, Lidocaine 2% 40 ML PO SCH ×6 (07:45→17:29)
[2017-06-13] MEDS: Levothyroxine 100 MCG Tab PO SCH (07:46)
[2017-06-13] MEDS: Apixaban 5 MG Tab PO SCH ×2 (09:08→21:19)
[2017-06-13] MEDS: Niacin 500 MG Tab PO SCH (09:08)
[2017-06-13] MEDS: Escitalopram 10 MG Tab PO SCH (09:08)
[2017-06-13] MEDS: Loratadine 10 MG Tab PO SCH (09:09)
[2017-06-13] MEDS: ARIPiprazole 5 MG Tab PO SCH (09:09)
[2017-06-13] MEDS: predniSONE 20 MG Tab PO SCH (09:09)
[2017-06-13] MEDS: Gentamicin 0.1% Crm 15 GM Tube TOP SCH (10:30)
[2017-06-13] MEDS: Calcium Citrate/Vitamin D3 315 MG-250 Unit Tab PO SCH ×2 (13:11→17:29)
[2017-06-13] MEDS: B.Bifidum/B.Longum/L.Acidophilus/L.Rhamnosus (Probiotic) Cap PO SCH (13:11)
[2017-06-13] MEDS: traMADol 50 MG Tab PO PRN (13:16)
[2017-06-13] MEDS: Mupirocin Oint 22 GM Tube TOP SCH (20:16)
[2017-06-13] MEDS ORDERED: Nystatin Ointment 15 GM Tube TOP SCH (21:00)
[2017-06-13] MEDS: Melatonin 3 MG Tab PO SCH (21:19)
[2017-06-13] MEDS: Metoprolol Succinate 25 MG Tab.ER PO SCH (21:20)
[2017-06-13] MEDS: Nystatin Ointment 15 GM Tube TOP SCH (21:21)
[2017-06-14] MEDS: Acetaminophen 500 MG Tab PO SCH ×7 (03:50→22:45)
[2017-06-14] MEDS: Levothyroxine 100 MCG Tab PO SCH (07:36)
[2017-06-14] MEDS: Alum Hydrox/Mag Hydrox/Simeth 40 ML, diphenhydrAMINE 12.5 MG, Lidocaine 2% 40 ML PO SCH ×6 (07:36→17:43)
[2017-06-14] MEDS: Gentamicin 0.1% Crm 15 GM Tube TOP SCH (08:29)
[2017-06-14] MEDS: Nystatin Ointment 15 GM Tube TOP SCH ×2 (08:29→21:16)
[2017-06-14] MEDS: predniSONE 20 MG Tab PO SCH (08:30)
[2017-06-14] MEDS: ARIPiprazole 5 MG Tab PO SCH (08:32)
[2017-06-14] MEDS: Apixaban 5 MG Tab PO SCH ×2 (08:33→21:14)
[2017-06-14] MEDS: Escitalopram 10 MG Tab PO SCH (08:33)
[2017-06-14] MEDS: Loratadine 10 MG Tab PO SCH (08:33)
[2017-06-14] MEDS: Niacin 500 MG Tab PO SCH (08:33)
[2017-06-14 08:35] LABS: CHLORIDE,CL 107 mmol/L (98-115); SODIUM,NA 144 mmol/L (136-145)
[2017-06-14] MEDS: B.Bifidum/B.Longum/L.Acidophilus/L.Rhamnosus (Probiotic) Cap PO SCH (11:09)
[2017-06-14] MEDS: Calcium Citrate/Vitamin D3 315 MG-250 Unit Tab PO SCH ×2 (11:10→17:44)
[2017-06-14] MEDS: Mupirocin Oint 22 GM Tube TOP SCH (21:13)
[2017-06-14] MEDS: Melatonin 3 MG Tab PO SCH (21:14)
[2017-06-14] MEDS: Metoprolol Succinate 25 MG Tab.ER PO SCH (21:16)
[2017-06-15] MEDS: Acetaminophen 500 MG Tab PO SCH ×6 (03:06→22:14)
[2017-06-15] MEDS: Levothyroxine 100 MCG Tab PO SCH (07:41)
[2017-06-15] MEDS: Alum Hydrox/Mag Hydrox/Simeth 40 ML, diphenhydrAMINE 12.5 MG, Lidocaine 2% 40 ML PO SCH ×6 (07:41→17:20)
[2017-06-15] MEDS: predniSONE 20 MG Tab PO SCH (08:18)
[2017-06-15] MEDS: Nystatin Ointment 15 GM Tube TOP SCH ×2 (08:19→20:39)
[2017-06-15] MEDS: Gentamicin 0.1% Crm 15 GM Tube TOP SCH (08:19)
[2017-06-15] MEDS: Apixaban 5 MG Tab PO SCH ×2 (08:20→20:33)
[2017-06-15] MEDS: Niacin 500 MG Tab PO SCH (08:20)
[2017-06-15] MEDS: Loratadine 10 MG Tab PO SCH (08:20)
[2017-06-15] MEDS: Escitalopram 10 MG Tab PO SCH (08:20)
[2017-06-15] MEDS: ARIPiprazole 5 MG Tab PO SCH (08:20)
[2017-06-15] MEDS: B.Bifidum/B.Longum/L.Acidophilus/L.Rhamnosus (Probiotic) Cap PO SCH (11:56)
[2017-06-15] MEDS: Calcium Citrate/Vitamin D3 315 MG-250 Unit Tab PO SCH ×2 (11:56→18:25)
[2017-06-15] MEDS: Mupirocin Oint 22 GM Tube TOP SCH (20:31)
[2017-06-15] MEDS: Melatonin 3 MG Tab PO SCH (20:32)
[2017-06-15] MEDS: Metoprolol Succinate 25 MG Tab.ER PO SCH (20:33)
[2017-06-16] MEDS: Acetaminophen 500 MG Tab PO SCH ×6 (02:31→22:33)
[2017-06-16] MEDS: Alum Hydrox/Mag Hydrox/Simeth 40 ML, diphenhydrAMINE 12.5 MG, Lidocaine 2% 40 ML PO SCH ×6 (07:35→17:20)
[2017-06-16] MEDS: Levothyroxine 100 MCG Tab PO SCH (07:35)
[2017-06-16] MEDS: predniSONE 20 MG Tab PO SCH (08:20)
[2017-06-16] MEDS: ARIPiprazole 5 MG Tab PO SCH (08:20)
[2017-06-16] MEDS: Loratadine 10 MG Tab PO SCH (08:20)
[2017-06-16] MEDS: Apixaban 5 MG Tab PO SCH ×2 (08:20→20:17)
[2017-06-16] MEDS: Nystatin Ointment 15 GM Tube TOP SCH ×2 (08:21→20:18)
[2017-06-16] MEDS: Escitalopram 10 MG Tab PO SCH (08:21)
[2017-06-16] MEDS: Niacin 500 MG Tab PO SCH (08:21)
[2017-06-16] MEDS: Gentamicin 0.1% Crm 15 GM Tube TOP SCH (08:21)
[2017-06-16] MEDS: Ondansetron 4 MG Tab.DIS PO PRN (09:31)
[2017-06-16] MEDS: Calcium Citrate/Vitamin D3 315 MG-250 Unit Tab PO SCH ×2 (11:47→17:56)
[2017-06-16] MEDS: B.Bifidum/B.Longum/L.Acidophilus/L.Rhamnosus (Probiotic) Cap PO SCH (11:47)
--- NOTE | 2017-06-16 12:32 | PCM.PN ---
- General Info Date of Service: 06/16/17 Admission Dx/Problem (Free Text): Deconditioning Subjective Update: Mrs. Rodarte reports feeling fairly well today. and daughter at bedside and concur that she has continued to improve and is doing well today. She is progressing in mobility and strength with physical therapy. She has had improvement in appetite, but continues to require encouragement to eat protein. Skin continuing to improve without new lesions. No new concerns. Plans to discharge with daughter on 06/23/17 at 0230 to fly out to [place] where she will live with her daughter. Social work has been coordinating for home health, durable medical equipment, and pharmaceutical arrangements to be made for transition. - Patient Data Vitals - Most Recent: Last Vital Signs Temp 36.8 C 06/16/17 06:13 Pulse 60 06/16/17 08:25 Resp 20 06/16/17 06:13 BP 137/74 06/16/17 06:13 Pulse Ox 94 L 06/16/17 08:25 Weight - Most Recent: 90.22 kg I&O - Last 24 Hours: Intake & Output 06/15/17 06/16/17 06/16/17 22:59 06:59 14:59 Intake Total 460 100 Balance 460 100 Lab Results Last 24 Hours: Laboratory Results - last 24 hr 06/15/17 06/16/17 Range/Units 17:45 06:09 POC Glucose 124 H 72 L (74-106) mg/dl Med Orders - Current: Current Medications Acetaminophen (Tylenol Extra Strength) 500 mg PO Q4HR [facility] Last Admin: 06/16/17 11:47 Dose: 500 mg Albuterol/Ipratropium (Duoneb 3.0-0.5 Mg/3 Ml) 3 ml NEB Q4H PRN PRN Reason: Shortness of Breath Apixaban (Eliquis) 5 mg PO BID [facility] Last Admin: 06/16/17 08:20 Dose: 5 mg Aripiprazole (Abilify) 10 mg PO QAM [facility] Last Admin: 06/16/17 08:20 Dose: 10 mg Calcium Citrate (Calcium Citrate + D) 2 tab PO BID@1200,1800 [facility] Last Admin: 06/16/17 11:47 Dose: 2 tab Al Hydroxide/Mg Hydroxide 40 ml/ Diphenhydramine HCl 12.5 mg/ Lidocaine HCl 40 ml 0 ml PO BIDAC [facility] Last Admin: 06/16/17 07:35 Dose: 15 ml Escitalopram Oxalate (Lexapro) 10 mg PO DAILY [facility] Last Admin: 06/16/17 08:21 Dose: 10 mg Gentamicin Sulfate (Gentamicin 0.1%) 0 gm TOP DAILY [facility] Last Admin: 06/16/17 08:21 Dose: 1 applic Hydroxyzine HCl (Atarax) 25 mg PO Q6H PRN PRN Reason: Itching Last Admin: 06/08/17 23:57 Dose: 25 mg Lactobacillus Acidophilus/Rhamnosus (Multi-Anne Marie Plus) 1 cap PO DAILY@1200 [facility] Last Admin: 06/16/17 11:47 Dose: 1 cap Levothyroxine Sodium (Synthroid) 100 mcg PO ACBREAKFAST [facility] Last Admin: 06/16/17 07:35 Dose: 100 mcg Loratadine (Claritin) 10 mg PO DAILY [facility] Last Admin: 06/16/17 08:20 Dose: 10 mg Lorazepam (Ativan) 0.5 mg PO BID PRN PRN Reason: Anxiety Last Admin: 06/12/17 19:29 Dose: 0.5 mg Melatonin (Melatonin) 3 mg PO BEDTIME [facility] Last Admin: 06/15/17 20:32 Dose: 3 mg Metoprolol Succinate (Toprol Xl) 12.5 mg PO BEDTIME [facility] Last Admin: 06/15/17 20:33 Dose: 12.5 mg Minocycline HCl (Minocin) 100 mg PO BID [facility] Last Admin: 06/16/17 08:20 Dose: 100 mg Mupirocin (Bactroban Oint) 1 gm TOP BEDTIME [facility] Last Admin: 06/15/17 20:31 Dose: 1 applic Niacin (Niacin) 500 mg PO DAILY [facility] Last Admin: 06/16/17 08:21 Dose: 500 mg Nystatin (Nystatin Ointment) 0 gm TOP 0900,2100 [facility] Last Admin: 06/16/17 08:21 Dose: 1 applic Ondansetron HCl (Zofran Odt) 4 mg PO Q6H PRN PRN Reason: Nausea/Vomiting Last Admin: 06/16/17 09:31 Dose: 4 mg Prednisone (Prednisone) 40 mg PO WITHBREAKFAST [facility] Stop: 06/23/17 08:01 Ranitidine HCl (Zantac) 150 mg PO DAILY [facility] Last Admin: 06/16/17 08:21 Dose: 150 mg Senna/Docusate Sodium (Senna Plus) 1 tab PO BID PRN PRN Reason: Constipation Tramadol HCl (Ultram) 50 mg PO Q6HR PRN PRN Reason: Pain Last Admin: 06/13/17 13:16 Dose: 50 mg Discontinued Medications Calcium Citrate (Calcium Citrate + D) 2 tab PO BID [facility] Last Admin: 06/08/17 08:07 Dose: 2 tab Mupirocin (Bactroban Oint) 0 gm TOP .STK-MED ONE Stop: 06/07/17 16:00 Nystatin (Nystatin Ointment) 1 gm TOP 0900,2100 [facility] Patient's Own Medication* Minocycline 100 Mg * * 1 each PO BID [facility] Prednisone (Prednisone) 50 mg PO WITHBREAKFAST [facility] Stop: 06/16/17 08:01 Last Admin: 06/16/17 08:20 Dose: 50 mg Prednisone (Prednisone) 60 mg PO WITHBREAKFAST [facility] Stop: 06/09/17 08:01 Last Admin: 06/09/17 08:39 Dose: 60 mg - Exam Physical Findings Comments:: GENERAL: Elderly white female sitting in bedside chair in no acute distress. and daughter at bedside. HEENT: Normocephalic, atraumatic. Conjunctiva clear. Mucous membranes moist, healing oral lesions. NECK: Supple, no masses. CV: Regular rate and rhythm, no murmurs, rubs, or gallops. 2+ radial pulses. PULMONARY: Normal effort, clear to auscultation bilaterally, no wheezes, rales, or rhonchi. ABDOMEN: Positive bowel sounds, soft, nontender, nondistended. EXTREMITIES: 1+ nonpitting edema of bilateral ankles. MUSCULOSKELETAL: Moves all extremities. NEUROLOGICAL: No obvious deficits. DERMATOLOGIC: Diffuse well-demarcated red lesions ranging in size from 0.2cm in diameter to several cm in diameter with interval ongoing improvement in maceration. PSYCHIATRIC: Alert, interactive, appropriate affect, limited insight and judgment. - Problem List Review Problem List Initiated/Reviewed/Updated: Yes - My Orders Last 24 Hours: My Active Orders 06/17/17 09:00 predniSONE 40 mg PO WITHBREAKFAST - Plan Plan:: Ms. Rodarte is an 82yoF with history notable for worsening debility and self- care deficits, bullous pemphigoid, and depression who presented to clinic on 05/31/17 with clinical and laboratory evidence of dehydration in the presence of 1 void in the prior 24 hours and elevated creatinine, intractable nausea and vomiting, and severe acute on chronic debility and high risk of falls. Due to her extremely poor baseline functional status and acute worsening of clinical status, she was admitted for IVF, IV antiemetics, and close monitoring of clinical status. She had improvement in her hydration status, but was noted to have extremely poor functional status and worsening bullous pemphigoid. Dermatology was consulted and prednisone was increased to 60mg daily with plan to decrease by 10mg weekly. Nutrition was consulted and assisted with counseling regarding increased protein intake and she was given an infusion of albumin as well. Physical therapy recommended ongoing rehabilitation and after extensive care management assistance throughout her acute stay, was admitted to [facility] for rehabilitation. # Deconditioning: Continue with physical therapy rehabilitation. # Bullous pemphigoid: Improvement with increased prednisone following dermatology consultation during acute stay. Tapered down to 40mg without appearance of new lesions. Will continue at 40mg po daily until outpatient follow-up. Continue topical mupirocin and gentamicin to macerated areas and minocycline and nicotinamide for baseline control. Continue Magic Mouthwash for oral lesion pain control. Continue hydroxyzine as needed for itching. In the setting of chronic steroid use, continue H2B and Ca/D as well as BG monitoring. In the setting of chronic antibiotic use, continue probiotic. # Protein calorie malnutrition and hypoalbuminemia: UA negative for proteinuria. Received albumin infusion 06/07. Continue with recommendations per nutrition. # Depression, major/Dementia: Worsening and associated self-care deficits prior to admission. MOCA = 16 on 05/20/17. Improved mood per patient and family since increase of aripiprazole and initiation of escitalopram. Continue lorazepam as needed. Discussed options for medication management for progression of dementia , which they will consider and discuss at outpatient follow-up. Chronic conditions: # COPD: DuoNebs prn. # Atrial fibrillation, paroxysmal: Stable. Apixaban and metoprolol. # GERD: Stable. Ranitidine. # Constipation: Stable. Docusate prn. # Hypothyroidism: 05/31 TSH 15.53, when levothyroxine increased to 100mcg. Recheck TSH in July. # Anemia of chronic disease: Stable. # Obesity: Confounding. Nutritional guidance, as above. # Chronic pain: Stable. Tylenol and tramadol prn. # Seasonal allergies: Stable. Loratadine. Hospitalization details: # FEN: No IVF. Electrolytes normal. Regular diet with increased protein as recommended by nutrition. # PPX: Anticoagulated on apixaban, so no other pharmacologic DVT ppx. Melatonin for delirium ppx. # Code status: DNR/DNI. # Emergency contact: Daughter/Brianne MCGUIRE. # Disposition: Continue on swing bed status for rehabilitation. Plans to discharge with daughter on 06/23/17 at 0230 to fly out to [place] where she will live with her daughter. Greatly appreciate social work assistance with coordinating for home health, durable medical equipment, and pharmaceutical arrangements to be made for transition. Face to Face Certification This is the Face to Face encounter for Home Health services, including nursing, physical therapy, and occupational therapy. Clinical findings: Ramila Rodarte is an 82yoF with history notable for severe debility and self-care deficits, bullous pemphigoid, protein calorie malnutrition, depression, and dementia who has high potential for rehospitalization related to these medical conditions and requires health teaching for medication management, development of home therapy program, in home safety assessment and instruction, strength and endurance improvement, wound care and assessment, and home management of multiple disease processes. 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 Hospital Bed Certification Ramila Rodarte requires frequent and immediate changes in body positioning in ways not feasible with an ordinary bed in order to alleviate pain. Wheelchair Certification Ramila Rodarte has a mobility limitation that impairs her ability to complete daily living activites in her home; such as getting to the kitchen for meal preparation. The use of a manual wheelchair will improve her ability to complete these daily functions and activities. This mobility limitation cannot be solved by a cane or walker, and she is compliant and willing to use a wheelchair. Ramila Rodarte has a caregiver who is available, willing, and able to assist with wheelchair use in the home.
[2017-06-16] MEDS: Mupirocin Oint 22 GM Tube TOP SCH (20:12)
[2017-06-16] MEDS: Melatonin 3 MG Tab PO SCH (20:17)
[2017-06-16] MEDS: Metoprolol Succinate 25 MG Tab.ER PO SCH (20:18)
[2017-06-17] MEDS: Acetaminophen 500 MG Tab PO SCH ×6 (02:09→22:19)
[2017-06-17] MEDS: Alum Hydrox/Mag Hydrox/Simeth 40 ML, diphenhydrAMINE 12.5 MG, Lidocaine 2% 40 ML PO SCH ×6 (07:50→17:07)
[2017-06-17] MEDS: Levothyroxine 100 MCG Tab PO SCH (07:50)
[2017-06-17] MEDS: Nystatin Ointment 15 GM Tube TOP SCH ×2 (08:37→20:34)
[2017-06-17] MEDS: Niacin 500 MG Tab PO SCH (08:38)
[2017-06-17] MEDS: Escitalopram 10 MG Tab PO SCH (08:39)
[2017-06-17] MEDS: Gentamicin 0.1% Crm 15 GM Tube TOP SCH (08:40)
[2017-06-17] MEDS: Apixaban 5 MG Tab PO SCH ×2 (08:40→21:02)
[2017-06-17] MEDS: ARIPiprazole 5 MG Tab PO SCH (08:41)
[2017-06-17] MEDS: Loratadine 10 MG Tab PO SCH (08:41)
[2017-06-17] MEDS: predniSONE 20 MG Tab PO SCH (08:42)
[2017-06-17] MEDS: B.Bifidum/B.Longum/L.Acidophilus/L.Rhamnosus (Probiotic) Cap PO SCH (11:48)
[2017-06-17] MEDS: Ondansetron 4 MG Tab.DIS PO PRN (11:48)
[2017-06-17] MEDS: Calcium Citrate/Vitamin D3 315 MG-250 Unit Tab PO SCH ×2 (11:48→18:14)
[2017-06-17] MEDS: LORazepam 0.5 MG Tab PO PRN (17:07)
[2017-06-17] MEDS: Mupirocin Oint 22 GM Tube TOP SCH (20:34)
[2017-06-17] MEDS: Metoprolol Succinate 25 MG Tab.ER PO SCH (21:01)
[2017-06-17] MEDS: Melatonin 3 MG Tab PO SCH (21:02)
[2017-06-17] MEDS: traMADol 50 MG Tab PO PRN (23:06)
[2017-06-18] MEDS: Acetaminophen 500 MG Tab PO SCH ×6 (03:59→23:03)
[2017-06-18] MEDS: Alum Hydrox/Mag Hydrox/Simeth 40 ML, diphenhydrAMINE 12.5 MG, Lidocaine 2% 40 ML PO SCH ×6 (08:19→17:11)
[2017-06-18] MEDS: predniSONE 20 MG Tab PO SCH (08:20)
[2017-06-18] MEDS: ARIPiprazole 5 MG Tab PO SCH (08:20)
[2017-06-18] MEDS: Loratadine 10 MG Tab PO SCH (08:21)
[2017-06-18] MEDS: Levothyroxine 100 MCG Tab PO SCH (08:21)
[2017-06-18] MEDS: Escitalopram 10 MG Tab PO SCH (08:21)
[2017-06-18] MEDS: Apixaban 5 MG Tab PO SCH ×2 (08:21→21:33)
[2017-06-18] MEDS: Niacin 500 MG Tab PO SCH (08:22)
[2017-06-18] MEDS: Nystatin Ointment 15 GM Tube TOP SCH ×2 (08:22→21:34)
[2017-06-18] MEDS: Gentamicin 0.1% Crm 15 GM Tube TOP SCH (09:46)
[2017-06-18] MEDS: Calcium Citrate/Vitamin D3 315 MG-250 Unit Tab PO SCH ×2 (11:39→18:14)
[2017-06-18] MEDS: B.Bifidum/B.Longum/L.Acidophilus/L.Rhamnosus (Probiotic) Cap PO SCH (11:39)
[2017-06-18] MEDS: LORazepam 0.5 MG Tab PO PRN (15:31)
[2017-06-18] MEDS: traMADol 50 MG Tab PO PRN (17:08)
[2017-06-18] MEDS: Mupirocin Oint 22 GM Tube TOP SCH (21:32)
[2017-06-18] MEDS: Melatonin 3 MG Tab PO SCH (21:34)
[2017-06-18] MEDS: Metoprolol Succinate 25 MG Tab.ER PO SCH (21:35)
[2017-06-19] MEDS: Acetaminophen 500 MG Tab PO SCH ×6 (02:41→22:47)
[2017-06-19] MEDS: predniSONE 20 MG Tab PO SCH (07:27)
[2017-06-19] MEDS: Alum Hydrox/Mag Hydrox/Simeth 40 ML, diphenhydrAMINE 12.5 MG, Lidocaine 2% 40 ML PO SCH ×6 (07:27→17:34)
[2017-06-19] MEDS: Levothyroxine 100 MCG Tab PO SCH (07:27)
[2017-06-19] MEDS: ARIPiprazole 5 MG Tab PO SCH (08:31)
[2017-06-19] MEDS: Apixaban 5 MG Tab PO SCH ×2 (08:32→20:20)
[2017-06-19] MEDS: Loratadine 10 MG Tab PO SCH (08:32)
[2017-06-19] MEDS: Escitalopram 10 MG Tab PO SCH (08:33)
[2017-06-19] MEDS: Niacin 500 MG Tab PO SCH (08:34)
[2017-06-19] MEDS: Nystatin Ointment 15 GM Tube TOP SCH ×2 (08:38→20:16)
[2017-06-19] MEDS: Gentamicin 0.1% Crm 15 GM Tube TOP SCH (08:38)
[2017-06-19] MEDS: B.Bifidum/B.Longum/L.Acidophilus/L.Rhamnosus (Probiotic) Cap PO SCH (11:52)
[2017-06-19] MEDS: Calcium Citrate/Vitamin D3 315 MG-250 Unit Tab PO SCH ×2 (11:52→18:00)
[2017-06-19] MEDS: Mupirocin Oint 22 GM Tube TOP SCH (20:15)
[2017-06-19] MEDS: Melatonin 3 MG Tab PO SCH (20:20)
[2017-06-19] MEDS: traMADol 50 MG Tab PO PRN (20:22)
[2017-06-19] MEDS: Metoprolol Succinate 25 MG Tab.ER PO SCH (20:22)
[2017-06-20] MEDS: Acetaminophen 500 MG Tab PO SCH ×6 (02:08→23:08)
[2017-06-20] MEDS: traMADol 50 MG Tab PO PRN ×4 (02:53→21:40)
[2017-06-20] MEDS: hydrOXYzine HCl 25 MG Tab PO PRN (02:53)
[2017-06-20] MEDS: Levothyroxine 100 MCG Tab PO SCH (07:17)
[2017-06-20] MEDS: predniSONE 20 MG Tab PO SCH (07:17)
[2017-06-20] MEDS: Alum Hydrox/Mag Hydrox/Simeth 40 ML, diphenhydrAMINE 12.5 MG, Lidocaine 2% 40 ML PO SCH ×6 (07:18→17:53)
[2017-06-20] MEDS: Loratadine 10 MG Tab PO SCH (08:00)
[2017-06-20] MEDS: ARIPiprazole 5 MG Tab PO SCH (08:00)
[2017-06-20] MEDS: Niacin 500 MG Tab PO SCH (08:00)
[2017-06-20] MEDS: Gentamicin 0.1% Crm 15 GM Tube TOP SCH (08:01)
[2017-06-20] MEDS: Nystatin Ointment 15 GM Tube TOP SCH ×2 (08:01→21:08)
[2017-06-20] MEDS: Apixaban 5 MG Tab PO SCH ×2 (08:01→21:11)
[2017-06-20] MEDS: Escitalopram 10 MG Tab PO SCH (08:01)
[2017-06-20] MEDS: LORazepam 0.5 MG Tab PO PRN ×2 (09:42→23:08)
[2017-06-20] MEDS: Calcium Citrate/Vitamin D3 315 MG-250 Unit Tab PO SCH ×2 (11:24→17:54)
[2017-06-20] MEDS: B.Bifidum/B.Longum/L.Acidophilus/L.Rhamnosus (Probiotic) Cap PO SCH (11:24)
--- NOTE | 2017-06-20 11:59 | PCM.PN ---
- General Info Date of Service: 06/20/17 Admission Dx/Problem (Free Text): Deconditioning - Patient Data Vitals - Most Recent: Last Vital Signs Temp 37.0 C 06/20/17 06:40 Pulse 60 06/20/17 06:40 Resp 16 06/20/17 06:40 BP 117/58 L 06/20/17 06:40 Pulse Ox 95 06/20/17 10:00 Weight - Most Recent: 90.22 kg I&O - Last 24 Hours: Intake & Output 06/19/17 06/20/17 06/20/17 22:59 06:59 14:59 Intake Total 900 300 Balance 900 300 Lab Results Last 24 Hours: Laboratory Results - last 24 hr 06/19/17 06/20/17 06/20/17 Range/Units 17:44 06:09 06:45 POC Glucose 118 H 62 L 93 (74-106) mg/dl Med Orders - Current: Current Medications Acetaminophen (Tylenol Extra Strength) 500 mg PO Q4HR [facility] Last Admin: 06/20/17 11:24 Dose: 500 mg Albuterol/Ipratropium (Duoneb 3.0-0.5 Mg/3 Ml) 3 ml NEB Q4H PRN PRN Reason: Shortness of Breath Apixaban (Eliquis) 5 mg PO BID [facility] Last Admin: 06/20/17 08:01 Dose: 5 mg Aripiprazole (Abilify) 10 mg PO QAM [facility] Last Admin: 06/20/17 08:00 Dose: 10 mg Calcium Citrate (Calcium Citrate + D) 2 tab PO BID@1200,1800 [facility] Last Admin: 06/20/17 11:24 Dose: 2 tab Al Hydroxide/Mg Hydroxide 40 ml/ Diphenhydramine HCl 12.5 mg/ Lidocaine HCl 40 ml 0 ml PO BIDAC [facility] Last Admin: 06/20/17 07:18 Dose: 15 ml Escitalopram Oxalate (Lexapro) 10 mg PO DAILY [facility] Last Admin: 06/20/17 08:01 Dose: 10 mg Gentamicin Sulfate (Gentamicin 0.1%) 0 gm TOP DAILY [facility] Last Admin: 06/20/17 08:01 Dose: 1 applic Lactobacillus Acidophilus/Rhamnosus (Multi-Anne Marie Plus) 1 cap PO DAILY@1200 [facility] Last Admin: 06/20/17 11:24 Dose: 1 cap Levothyroxine Sodium (Synthroid) 100 mcg PO ACBREAKFAST [facility] Last Admin: 06/20/17 07:17 Dose: 100 mcg Loratadine (Claritin) 10 mg PO DAILY [facility] Last Admin: 06/20/17 08:00 Dose: 10 mg Lorazepam (Ativan) 0.5 mg PO BID PRN PRN Reason: Anxiety Last Admin: 06/20/17 09:42 Dose: 0.5 mg Melatonin (Melatonin) 3 mg PO BEDTIME [facility] Last Admin: 06/19/17 20:20 Dose: 3 mg Metoprolol Succinate (Toprol Xl) 12.5 mg PO BEDTIME [facility] Last Admin: 06/19/17 20:22 Dose: 12.5 mg Minocycline HCl (Minocin) 100 mg PO BID [facility] Last Admin: 06/20/17 08:02 Dose: 100 mg Mupirocin (Bactroban Oint) 1 gm TOP BEDTIME [facility] Last Admin: 06/19/17 20:15 Dose: 1 applic Niacin (Niacin) 500 mg PO DAILY [facility] Last Admin: 06/20/17 08:00 Dose: 500 mg Nystatin (Nystatin Ointment) 0 gm TOP 0900,2100 [facility] Last Admin: 06/20/17 08:01 Dose: 1 applic Ondansetron HCl (Zofran Odt) 4 mg PO Q6H PRN PRN Reason: Nausea/Vomiting Last Admin: 06/17/17 11:48 Dose: 4 mg Prednisone (Prednisone) 40 mg PO WITHBREAKFAST [facility] Last Admin: 06/20/17 07:17 Dose: 40 mg Ranitidine HCl (Zantac) 150 mg PO DAILY [facility] Last Admin: 06/20/17 08:00 Dose: 150 mg Senna/Docusate Sodium (Senna Plus) 1 tab PO BID PRN PRN Reason: Constipation Tramadol HCl (Ultram) 50 mg PO Q6HR PRN PRN Reason: Pain Last Admin: 06/20/17 09:01 Dose: 50 mg Discontinued Medications Calcium Citrate (Calcium Citrate + D) 2 tab PO BID [facility] Last Admin: 06/08/17 08:07 Dose: 2 tab Hydroxyzine HCl (Atarax) 25 mg PO Q6H PRN PRN Reason: Itching Last Admin: 06/20/17 02:53 Dose: 25 mg Mupirocin (Bactroban Oint) 0 gm TOP .STK-MED ONE Stop: 06/07/17 16:00 Nystatin (Nystatin Ointment) 1 gm TOP 0900,2100 [facility] Patient's Own Medication* Minocycline 100 Mg * * 1 each PO BID [facility] Prednisone (Prednisone) 50 mg PO WITHBREAKFAST [facility] Stop: 06/16/17 08:01 Last Admin: 06/16/17 08:20 Dose: 50 mg Prednisone (Prednisone) 60 mg PO WITHBREAKFAST [facility] Stop: 06/09/17 08:01 Last Admin: 06/09/17 08:39 Dose: 60 mg - Plan Plan:: Ms. Rodarte is an 82yoF with history notable for worsening debility and self- care deficits, bullous pemphigoid, and depression who presented to clinic on 05/31/17 with clinical and laboratory evidence of dehydration in the presence of 1 void in the prior 24 hours and elevated creatinine, intractable nausea and vomiting, and severe acute on chronic debility and high risk of falls. Due to her extremely poor baseline functional status and acute worsening of clinical status, she was admitted for IVF, IV antiemetics, and close monitoring of clinical status. She had improvement in her hydration status, but was noted to have extremely poor functional status and worsening bullous pemphigoid. Dermatology was consulted and prednisone was increased to 60mg daily with plan to decrease by 10mg weekly. Nutrition was consulted and assisted with counseling regarding increased protein intake and she was given an infusion of albumin as well. Physical therapy recommended ongoing rehabilitation and after extensive care management assistance throughout her acute stay, was admitted to swing bed status for rehabilitation. # Deconditioning: Continue with physical therapy rehabilitation. # Bullous pemphigoid: Improvement with increased prednisone following dermatology consultation during acute stay. Tapered down to 40mg without appearance of new lesions. Will continue at 40mg po daily until outpatient follow-up. Continue topical mupirocin and gentamicin to macerated areas and minocycline and nicotinamide for baseline control. Continue Magic Mouthwash for oral lesion pain control. Continue hydroxyzine as needed for itching. In the setting of chronic steroid use, continue H2B and Ca/D as well as BG monitoring. In the setting of chronic antibiotic use, continue probiotic. # Protein calorie malnutrition and hypoalbuminemia: UA negative for proteinuria. Received albumin infusion 06/07. Continue with recommendations per nutrition. # Depression, major/Dementia: Worsening and associated self-care deficits prior to admission. MOCA = 16 on 05/20/17. Improved mood per patient and family since increase of aripiprazole and initiation of escitalopram. Continue lorazepam as needed. Discussed options for medication management for progression of dementia , which they will consider and discuss at outpatient follow-up. Chronic conditions: # COPD: DuoNebs prn. # Atrial fibrillation, paroxysmal: Stable. Apixaban and metoprolol. # GERD: Stable. Ranitidine. # Constipation: Stable. Docusate prn. # Hypothyroidism: 05/31 TSH 15.53, when levothyroxine increased to 100mcg. Recheck TSH in July. # Anemia of chronic disease: Stable. # Obesity: Confounding. Nutritional guidance, as above. # Chronic pain: Stable. Tylenol and tramadol prn. # Seasonal allergies: Stable. Loratadine. Hospitalization details: # FEN: No IVF. Electrolytes normal. Regular diet with increased protein as recommended by nutrition. # PPX: Anticoagulated on apixaban, so no other pharmacologic DVT ppx. Melatonin for delirium ppx. # Code status: DNR/DNI. # Emergency contact: Daughter/Brianne MCGUIRE. # Disposition: Continue on swing bed status for rehabilitation. Plans to discharge with daughter on 06/23/17 at 0230 to fly out to [place] where she will live with her daughter. Greatly appreciate social work assistance with coordinating for home health, durable medical equipment, and pharmaceutical arrangements to be made for transition. Face to Face Certification This is the Face to Face encounter for Home Health services, including nursing, physical therapy, and occupational therapy. Clinical findings: Ramila Rodarte is an 82yoF with history notable for severe debility and self-care deficits, bullous pemphigoid, protein calorie malnutrition, depression, and dementia who has high potential for rehospitalization related to these medical conditions and requires health teaching for medication management, development of home therapy program, in home safety assessment and instruction, strength and endurance improvement, wound care and assessment, and home management of multiple disease processes. 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 Hospital Bed Certification Ramila Rodarte requires frequent and immediate changes in body positioning in ways not feasible with an ordinary bed in order to alleviate pain. Wheelchair Certification Ramila Rodarte has a mobility limitation that impairs her ability to complete daily living activites in her home; such as getting to the kitchen for meal preparation. The use of a manual wheelchair will improve her ability to complete these daily functions and activities. This mobility limitation cannot be solved by a cane or walker, and she is compliant and willing to use a wheelchair. Ramila Rodarte has a caregiver who is available, willing, and able to assist with wheelchair use in the home.
[2017-06-20] MEDS: Mupirocin Oint 22 GM Tube TOP SCH (20:15)
[2017-06-20] MEDS: Melatonin 3 MG Tab PO SCH (21:11)
[2017-06-20] MEDS: Metoprolol Succinate 25 MG Tab.ER PO SCH (21:12)
[2017-06-21] MEDS: Acetaminophen 500 MG Tab PO SCH ×7 (05:32→23:05)
[2017-06-21] MEDS: Alum Hydrox/Mag Hydrox/Simeth 40 ML, diphenhydrAMINE 12.5 MG, Lidocaine 2% 40 ML PO SCH ×3 (07:52)
[2017-06-21] MEDS: Levothyroxine 100 MCG Tab PO SCH (07:52)
[2017-06-21] MEDS: ARIPiprazole 5 MG Tab PO SCH (08:21)
[2017-06-21] MEDS: Loratadine 10 MG Tab PO SCH (08:22)
[2017-06-21] MEDS: Escitalopram 10 MG Tab PO SCH (08:22)
[2017-06-21] MEDS: Niacin 500 MG Tab PO SCH (08:22)
[2017-06-21] MEDS: Apixaban 5 MG Tab PO SCH ×2 (08:22→20:27)
[2017-06-21] MEDS: Gentamicin 0.1% Crm 15 GM Tube TOP SCH (08:23)
[2017-06-21] MEDS: predniSONE 20 MG Tab PO SCH (08:23)
[2017-06-21] MEDS: Nystatin Ointment 15 GM Tube TOP SCH ×2 (08:23→20:30)
[2017-06-21] MEDS: Ondansetron 4 MG Tab.DIS PO PRN (09:58)
[2017-06-21] MEDS ORDERED: MAG HYDROXIDE PO SCH ×3 (11:15)
[2017-06-21] MEDS ORDERED: DIPHENHYDRAMINE PO SCH ×3 (11:15)
[2017-06-21] MEDS ORDERED: ALUM HYDROXIDE PO SCH ×3 (11:15)
[2017-06-21] MEDS ORDERED: LIDOCAINE 2% PO SCH ×3 (11:15)
[2017-06-21] MEDS: Calcium Citrate/Vitamin D3 315 MG-250 Unit Tab PO SCH ×2 (11:18→17:31)
[2017-06-21] MEDS: B.Bifidum/B.Longum/L.Acidophilus/L.Rhamnosus (Probiotic) Cap PO SCH (11:18)
[2017-06-21] MEDS: traMADol 50 MG Tab PO PRN (13:55)
[2017-06-21] MEDS: DIPHENHYDRAMINE PO SCH ×3 (17:31)
[2017-06-21] MEDS: ALUM HYDROXIDE PO SCH ×3 (17:31)
[2017-06-21] MEDS: LIDOCAINE 2% PO SCH ×3 (17:31)
[2017-06-21] MEDS: MAG HYDROXIDE PO SCH ×3 (17:31)
[2017-06-21] MEDS: Mupirocin Oint 22 GM Tube TOP SCH (20:27)
[2017-06-21] MEDS: Melatonin 3 MG Tab PO SCH (20:27)
[2017-06-21] MEDS: Metoprolol Succinate 25 MG Tab.ER PO SCH (20:28)
--- NOTE | 2017-06-21 22:14 | PCM.PN ---
- General Info Date of Service: 06/20/17 Subjective Update: Mrs. Rodarte reports feeling well today. Daughter at bedside and concurs that she has continued to improve and is doing well today. She has been up on a walk already today and has been progressing in mobility and strength with physical therapy. She has had improvement in appetite, but continues to require encouragement to eat protein. Skin continuing to improve without new lesions. Areas of most maceration and irriation include the left thigh, right breast, and anterior abdomen, but all with interval improvement. No new concerns. Daughter clarified many questions regarding care for Shazia at home. Answered her questions and she voiced understanding. Plans to discharge with daughter late on 06/22/17 or early 06/23/17 to fly out to [place] where she will live with her daughter. Social work has coordinated home health, durable medical equipment, and pharmaceutical arrangements. - Patient Data Vitals - Most Recent: Last Vital Signs Temp 36.4 C 06/21/17 06:51 Pulse 74 06/21/17 20:28 Resp 20 06/21/17 06:51 BP 112/70 06/21/17 20:28 Pulse Ox 96 06/21/17 09:33 Weight - Most Recent: 92.76 kg I&O - Last 24 Hours: Intake & Output 06/21/17 06/21/17 06/21/17 06:59 14:59 22:59 Intake Total 100 360 660 Balance 100 360 660 Med Orders - Current: Current Medications Acetaminophen (Tylenol Extra Strength) 500 mg PO Q4HR [facility] Last Admin: 06/21/17 18:37 Dose: 500 mg Albuterol/Ipratropium (Duoneb 3.0-0.5 Mg/3 Ml) 3 ml NEB Q4H PRN PRN Reason: Shortness of Breath Apixaban (Eliquis) 5 mg PO BID [facility] Last Admin: 06/21/17 20:27 Dose: 5 mg Aripiprazole (Abilify) 10 mg PO QAM [facility] Last Admin: 06/21/17 08:21 Dose: 10 mg Calcium Citrate (Calcium Citrate + D) 2 tab PO BID@1200,1800 [facility] Last Admin: 06/21/17 17:31 Dose: 2 tab Al Hydroxide/Mg Hydroxide 30 ml/ Diphenhydramine HCl 12.5 mg/ Lidocaine HCl 30 ml 0 ml PO BIDAC [facility] Last Admin: 06/21/17 17:31 Dose: 15 ml Escitalopram Oxalate (Lexapro) 10 mg PO DAILY [facility] Last Admin: 06/21/17 08:22 Dose: 10 mg Gentamicin Sulfate (Gentamicin 0.1%) 0 gm TOP DAILY [facility] Last Admin: 06/21/17 08:23 Dose: 1 applic Lactobacillus Acidophilus/Rhamnosus (Multi-Anne Marie Plus) 1 cap PO DAILY@1200 [facility] Last Admin: 06/21/17 11:18 Dose: 1 cap Levothyroxine Sodium (Synthroid) 100 mcg PO ACBREAKFAST [facility] Last Admin: 06/21/17 07:52 Dose: 100 mcg Loratadine (Claritin) 10 mg PO DAILY [facility] Last Admin: 06/21/17 08:22 Dose: 10 mg Lorazepam (Ativan) 0.5 mg PO BID PRN PRN Reason: Anxiety Last Admin: 06/20/17 23:08 Dose: 0.5 mg Melatonin (Melatonin) 3 mg PO BEDTIME [facility] Last Admin: 06/21/17 20:27 Dose: 3 mg Metoprolol Succinate (Toprol Xl) 12.5 mg PO BEDTIME [facility] Last Admin: 06/21/17 20:28 Dose: 12.5 mg Minocycline HCl (Minocin) 100 mg PO BID [facility] Last Admin: 06/21/17 20:27 Dose: 100 mg Mupirocin (Bactroban Oint) 1 gm TOP BEDTIME [facility] Last Admin: 06/21/17 20:27 Dose: 1 applic Niacin (Niacin) 500 mg PO DAILY [facility] Last Admin: 06/21/17 08:22 Dose: 500 mg Nystatin (Nystatin Ointment) 0 gm TOP 0900,2100 [facility] Last Admin: 06/21/17 20:30 Dose: 1 applic Ondansetron HCl (Zofran Odt) 4 mg PO Q6H PRN PRN Reason: Nausea/Vomiting Last Admin: 06/21/17 09:58 Dose: 4 mg Prednisone (Prednisone) 40 mg PO WITHBREAKFAST [facility] Last Admin: 06/21/17 08:23 Dose: 40 mg Ranitidine HCl (Zantac) 150 mg PO DAILY [facility] Last Admin: 06/21/17 08:21 Dose: 150 mg Senna/Docusate Sodium (Senna Plus) 1 tab PO BID PRN PRN Reason: Constipation Tramadol HCl (Ultram) 50 mg PO Q6HR PRN PRN Reason: Pain Last Admin: 06/21/17 13:55 Dose: 50 mg Discontinued Medications Calcium Citrate (Calcium Citrate + D) 2 tab PO BID [facility] Last Admin: 06/08/17 08:07 Dose: 2 tab Al Hydroxide/Mg Hydroxide 40 ml/ Diphenhydramine HCl 12.5 mg/ Lidocaine HCl 40 ml 0 ml PO BIDAC [facility] Last Admin: 06/21/17 07:52 Dose: 15 ml Al Hydroxide/Mg Hydroxide 30 ml/ Diphenhydramine HCl 12.5 mg/ Lidocaine HCl 30 ml 0 ml PO BIDAC [facility] Hydroxyzine HCl (Atarax) 25 mg PO Q6H PRN PRN Reason: Itching Last Admin: 06/20/17 02:53 Dose: 25 mg Mupirocin (Bactroban Oint) 0 gm TOP .[facility] Stop: 06/07/17 16:00 Nystatin (Nystatin Ointment) 1 gm TOP 0900,2100 [facility] Patient's Own Medication* Minocycline 100 Mg * * 1 each PO BID [facility] Prednisone (Prednisone) 50 mg PO WITHBREAKFAST [facility] Stop: 06/16/17 08:01 Last Admin: 06/16/17 08:20 Dose: 50 mg Prednisone (Prednisone) 60 mg PO WITHBREAKFAST [facility] Stop: 06/09/17 08:01 Last Admin: 06/09/17 08:39 Dose: 60 mg - Exam Physical Findings Comments:: GENERAL: Elderly white female sitting in bedside chair in no acute distress. Daughter at bedside. HEENT: Normocephalic, atraumatic. Conjunctiva clear. Mucous membranes moist, healing oral lesions. NECK: Supple, no masses. CV: Regular rate and rhythm, no murmurs, rubs, or gallops. 2+ radial pulses. PULMONARY: Normal effort, clear to auscultation bilaterally, no wheezes, rales, or rhonchi. ABDOMEN: Positive bowel sounds, soft, nontender, nondistended. EXTREMITIES: 1+ nonpitting edema of bilateral ankles. MUSCULOSKELETAL: Moves all extremities. NEUROLOGICAL: No obvious deficits. DERMATOLOGIC: Diffuse well-demarcated red lesions ranging in size from 0.2cm in diameter to several cm in diameter with interval ongoing improvement in maceration of right breast, anterior abdomen, and left thigh. PSYCHIATRIC: Alert, interactive, appropriate affect, limited insight and judgment. - Problem List Review Problem List Initiated/Reviewed/Updated: Yes - My Orders Last 24 Hours: My Active Orders 06/21/17 17:30 Alum Hydroxide/Mag Hydroxide [Mag-Al Susp] 30 ml diphenhydrAMINE [Benadryl] 12.5 mg Lidocaine 2% [Xylocaine 2% Viscous] 30 ml PO BIDAC - Plan Plan:: Ms. Rodarte is an 82yoF with history notable for debility and self-care deficits , bullous pemphigoid, and depression who presented to clinic on 05/31/17 with clinical and laboratory evidence of dehydration in the presence of 1 void in the prior 24 hours and elevated creatinine, intractable nausea and vomiting, and severe acute on chronic debility and high risk of falls. Due to her extremely poor baseline functional status and acute worsening of clinical status , she was admitted for IVF, IV antiemetics, and close monitoring of clinical status. She had improvement in her hydration status, but was noted to have extremely poor functional status and worsening bullous pemphigoid. Dermatology was consulted and prednisone was increased to 60mg daily with plan to decrease by 10mg weekly until at 40mg daily at which point recommend follow-up prior to further decrease. Nutrition was consulted and assisted with counseling regarding increased protein intake and she was given an infusion of albumin as well. Physical therapy recommended ongoing rehabilitation and after extensive care management assistance throughout her acute stay, was admitted to swing bed status for rehabilitation. # Deconditioning: Continue with physical therapy rehabilitation. Plan for home physical therapy upon discharge with daughter. # Bullous pemphigoid: Improvement with increased prednisone following dermatology consultation during acute stay. Tapered down to 40mg without appearance of new lesions. Will continue at 40mg po daily until outpatient follow-up. Continue topical mupirocin and gentamicin to macerated areas and minocycline and nicotinamide for baseline control. Continue Magic Mouthwash for oral lesion pain control. In the setting of chronic steroid use, continue H2B and Ca/D as well as BG monitoring. In the setting of chronic antibiotic use, continue probiotic. # Protein calorie malnutrition and hypoalbuminemia: Received albumin infusion . Continue with recommendations per nutrition with increased protein intake. # Depression, major/Dementia: Worsening and associated self-care deficits prior to admission. MOCA = 16 on 05/20/17. Improved mood per patient and family since increase of aripiprazole and initiation of escitalopram. Continue lorazepam as needed. Discussed options for medication management for progression of dementia , which they will consider and discuss at outpatient follow-up. Chronic conditions: # COPD: DuoNebs prn. # Atrial fibrillation, paroxysmal: Stable. Apixaban and metoprolol. # GERD: Stable. Ranitidine. # Constipation: Stable. Docusate prn. # Nausea: Intermittent and stable. Zofran prn. # Hypothyroidism: 05/31 TSH 15.53, when levothyroxine increased to 100mcg. Recheck TSH in July. # Anemia of chronic disease: Stable. # Obesity: Confounding. Nutritional guidance, as above. # Chronic pain: Stable. Tylenol and tramadol prn. # Seasonal allergies: Stable. Loratadine. Hospitalization details: # FEN: No IVF. Electrolytes normal. Regular diet with increased protein as recommended by nutrition. # PPX: Anticoagulated on apixaban, so no other pharmacologic DVT ppx. Melatonin for delirium ppx, which she may continue as outpatient. # Code status: DNR/DNI. # Emergency contact: Daughter/Brianne MCGUIRE. # Disposition: Continue on swing bed status for rehabilitation. Plans to discharge with daughter on 06/22/17 or 06/23/17to fly out to [place] where she will live with her daughter. Greatly appreciate social work assistance with coordinating for home health, durable medical equipment, and pharmaceutical arrangements to be made for transition.
[2017-06-21] MEDS: LORazepam 0.5 MG Tab PO PRN (23:06)
[2017-06-22] MEDS: Acetaminophen 500 MG Tab PO SCH ×5 (03:40→18:45)
[2017-06-22] MEDS: traMADol 50 MG Tab PO PRN ×3 (05:48→22:17)
[2017-06-22] MEDS: ALUM HYDROXIDE PO SCH ×6 (07:42→17:36)
[2017-06-22] MEDS: LIDOCAINE 2% PO SCH ×6 (07:42→17:36)
[2017-06-22] MEDS: Levothyroxine 100 MCG Tab PO SCH (07:42)
[2017-06-22] MEDS: DIPHENHYDRAMINE PO SCH ×6 (07:42→17:36)
[2017-06-22] MEDS: MAG HYDROXIDE PO SCH ×6 (07:42→17:36)
[2017-06-22] MEDS: LORazepam 0.5 MG Tab PO PRN (08:10)
[2017-06-22] MEDS: ARIPiprazole 5 MG Tab PO SCH (08:11)
[2017-06-22] MEDS: Loratadine 10 MG Tab PO SCH (08:11)
[2017-06-22] MEDS: Escitalopram 10 MG Tab PO SCH (08:11)
[2017-06-22] MEDS: predniSONE 20 MG Tab PO SCH (08:11)
[2017-06-22] MEDS: Gentamicin 0.1% Crm 15 GM Tube TOP SCH (08:11)
[2017-06-22] MEDS: Niacin 500 MG Tab PO SCH (08:11)
[2017-06-22] MEDS: Apixaban 5 MG Tab PO SCH ×2 (08:11→20:08)
[2017-06-22] MEDS: Nystatin Ointment 15 GM Tube TOP SCH ×2 (08:12→20:08)
[2017-06-22] MEDS: B.Bifidum/B.Longum/L.Acidophilus/L.Rhamnosus (Probiotic) Cap PO SCH (12:39)
[2017-06-22] MEDS: Calcium Citrate/Vitamin D3 315 MG-250 Unit Tab PO SCH ×2 (12:39→17:37)
[2017-06-22] MEDS: Mupirocin Oint 22 GM Tube TOP SCH (20:06)
[2017-06-22] MEDS: Melatonin 3 MG Tab PO SCH (20:07)
[2017-06-22] MEDS: Metoprolol Succinate 25 MG Tab.ER PO SCH (20:13)
[2017-06-22 20:14] VITALS: BP 95/58
[2017-06-23] MEDS: Acetaminophen 500 MG Tab PO SCH ×2 (02:07)
--- NOTE | 2017-06-24 10:01 | PCM.PN ---
- General Info Date of Service: 06/22/17 Functional Status: Reports: Pain Controlled - Review of Systems General: Reports: Weakness. Denies: Fever HEENT: Reports: No Symptoms Pulmonary: Reports: No Symptoms Cardiovascular: Reports: No Symptoms Gastrointestinal: Reports: No Symptoms Genitourinary: Denies: Dysuria, Frequency, Burning, Pain, Urgency, Incontinence , Hematuria, Retention, Flank Pain Musculoskeletal: Reports: No Symptoms Skin: Reports: Other (Diffuse healing skin lesions however no developed lesion left arm ) Neurological: Reports: Pre-Existing Deficit, Difficulty Walking, Weakness ( Weakness is much improved) Psychiatric: Reports: No Symptoms - Patient Data Vitals - Most Recent: Last Vital Signs Temp 98.2 F 06/22/17 05:50 Pulse 78 06/22/17 20:13 Resp 16 06/22/17 05:50 BP 95/58 L 06/22/17 20:13 Pulse Ox 95 06/22/17 08:35 Weight - Most Recent: 204 lb 8 oz Med Orders - Current: Current Medications Discontinued Medications Acetaminophen (Tylenol Extra Strength) 500 mg PO Q4HR [facility] Last Admin: 06/23/17 02:07 Dose: 500 mg Albuterol/Ipratropium (Duoneb 3.0-0.5 Mg/3 Ml) 3 ml NEB Q4H PRN PRN Reason: Shortness of Breath Apixaban (Eliquis) 5 mg PO BID [facility] Last Admin: 06/22/17 20:08 Dose: 5 mg Aripiprazole (Abilify) 10 mg PO QAM [facility] Last Admin: 06/22/17 08:11 Dose: 10 mg Calcium Citrate (Calcium Citrate + D) 2 tab PO BID [facility] Last Admin: 06/08/17 08:07 Dose: 2 tab Calcium Citrate (Calcium Citrate + D) 2 tab PO BID@1200,1800 [facility] Last Admin: 06/22/17 17:37 Dose: 2 tab Al Hydroxide/Mg Hydroxide 40 ml/ Diphenhydramine HCl 12.5 mg/ Lidocaine HCl 40 ml 0 ml PO BIDAC [facility] Last Admin: 06/21/17 07:52 Dose: 15 ml Al Hydroxide/Mg Hydroxide 30 ml/ Diphenhydramine HCl 12.5 mg/ Lidocaine HCl 30 ml 0 ml PO BIDAC [facility] Al Hydroxide/Mg Hydroxide 30 ml/ Diphenhydramine HCl 12.5 mg/ Lidocaine HCl 30 ml 0 ml PO BIDAC [facility] Last Admin: 06/22/17 17:36 Dose: 15 ml Escitalopram Oxalate (Lexapro) 10 mg PO DAILY [facility] Last Admin: 06/22/17 08:11 Dose: 10 mg Gentamicin Sulfate (Gentamicin 0.1%) 0 gm TOP DAILY [facility] Last Admin: 06/22/17 08:11 Dose: 1 applic Hydroxyzine HCl (Atarax) 25 mg PO Q6H PRN PRN Reason: Itching Last Admin: 06/20/17 02:53 Dose: 25 mg Lactobacillus Acidophilus/Rhamnosus (Multi-Anne Marie Plus) 1 cap PO DAILY@1200 [facility] Last Admin: 06/22/17 12:39 Dose: 1 cap Levothyroxine Sodium (Synthroid) 100 mcg PO ACBREAKFAST [facility] Last Admin: 06/22/17 07:42 Dose: 100 mcg Loratadine (Claritin) 10 mg PO DAILY [facility] Last Admin: 06/22/17 08:11 Dose: 10 mg Lorazepam (Ativan) 0.5 mg PO BID PRN PRN Reason: Anxiety Last Admin: 06/22/17 08:10 Dose: 0.5 mg Melatonin (Melatonin) 3 mg PO BEDTIME [facility] Last Admin: 06/22/17 20:07 Dose: 3 mg Metoprolol Succinate (Toprol Xl) 12.5 mg PO BEDTIME [facility] Last Admin: 06/22/17 20:13 Dose: Not Given Minocycline HCl (Minocin) 100 mg PO BID [facility] Last Admin: 06/22/17 20:08 Dose: 100 mg Mupirocin (Bactroban Oint) 0 gm TOP .[facility] Stop: 06/07/17 16:00 Mupirocin (Bactroban Oint) 1 gm TOP BEDTIME [facility] Last Admin: 06/22/17 20:06 Dose: 1 applic Niacin (Niacin) 500 mg PO DAILY [facility] Last Admin: 06/22/17 08:11 Dose: 500 mg Nystatin (Nystatin Ointment) 1 gm TOP 0900,2100 [facility] Nystatin (Nystatin Ointment) 0 gm TOP 0900,2100 [facility] Last Admin: 06/22/17 20:08 Dose: 1 applic Ondansetron HCl (Zofran Odt) 4 mg PO Q6H PRN PRN Reason: Nausea/Vomiting Last Admin: 06/21/17 09:58 Dose: 4 mg Patient's Own Medication* Minocycline 100 Mg * * 1 each PO BID [facility] Prednisone (Prednisone) 50 mg PO WITHBREAKFAST [facility] Stop: 06/16/17 08:01 Last Admin: 06/16/17 08:20 Dose: 50 mg Prednisone (Prednisone) 40 mg PO WITHBREAKFAST [facility] Last Admin: 06/22/17 08:11 Dose: 40 mg Prednisone (Prednisone) 60 mg PO WITHBREAKFAST [facility] Stop: 06/09/17 08:01 Last Admin: 06/09/17 08:39 Dose: 60 mg Ranitidine HCl (Zantac) 150 mg PO DAILY [facility] Last Admin: 06/22/17 08:11 Dose: 150 mg Senna/Docusate Sodium (Senna Plus) 1 tab PO BID PRN PRN Reason: Constipation Tramadol HCl (Ultram) 50 mg PO Q6HR PRN PRN Reason: Pain Last Admin: 06/22/17 22:17 Dose: 50 mg - Exam Quality Assessment: No: Supplemental Oxygen General: Alert, Oriented, No Acute Distress Neck: Supple Lungs: Clear to Auscultation, Normal Respiratory Effort Cardiovascular: Irregular Rhythm (Female) Exam: Deferred Back Exam: No: CVA Tenderness (L), CVA Tenderness (R) Skin: Other (Ongoing however drying up and healing diffuse widespread lesions with new fluid-filled blister right forearm) Wound/Incisions: Drainage Neurological: No New Focal Deficit Psy/Mental Status: Alert, Normal Affect, Normal Mood - Problem List Review Problem List Initiated/Reviewed/Updated: Yes - Plan Plan:: Impression/plan Deconditioning: Continue with physical therapy rehabilitation. Plan for home physical therapy upon discharge with daughter after midnight tonight. Will be discharged June 23, 2017--order will be placed in today for discharged after midnight tonight due to the need for physical therapy one more day today. # Bullous pemphigoid: Improvement with increased prednisone following dermatology consultation during acute stay. Tapered down to 40mg without appearance of new lesions. Will continue at 40mg po daily until outpatient follow-up. Continue topical mupirocin and gentamicin to macerated areas and minocycline and nicotinamide for baseline control. Continue Magic Mouthwash for oral lesion pain control. In the setting of chronic steroid use, continue H2B and Ca/D as well as BG monitoring. In the setting of chronic antibiotic use, continue probiotic. # Protein calorie malnutrition and hypoalbuminemia: Received albumin infusion . Continue with recommendations per nutrition with increased protein intake. # Depression, major/Dementia: Worsening and associated self-care deficits prior to admission. MOCA = 16 on 05/20/17. Improved mood per patient and family since increase of aripiprazole and initiation of escitalopram. Continue lorazepam as needed. Discussed options for medication management for progression of dementia , which they will consider and discuss at outpatient follow-up. Chronic conditions: # COPD: DuoNebs prn. # Atrial fibrillation, paroxysmal: Stable. Apixaban and metoprolol. # GERD: Stable. Ranitidine. # Constipation: Stable. Docusate prn. # Nausea: Intermittent and stable. Zofran prn. # Hypothyroidism: 05/31 TSH 15.53, when levothyroxine increased to 100mcg. Recheck TSH in July. # Anemia of chronic disease: Stable. # Obesity: Confounding. Nutritional guidance, as above. # Chronic pain: Stable. Tylenol and tramadol prn. # Seasonal allergies: Stable. Loratadine. # Disposition: Continue with physical therapy rehabilitation. Plan for home physical therapy upon discharge with daughter after midnight tonight. Will be discharged June 23, 2017--order will be placed in today for discharged after midnight tonight due to the need for physical therapy one more day today. Patient will be released in the care of her daughter for flight [place].
--- NOTE | 2017-06-24 10:07 | PCM.DCSUM1 ---
Discharge Summary - Hospital Course HPI Initial Comments: Ms. Rodarte is an 82yoF with history notable for debility and self-care deficits , bullous pemphigoid, and depression who presented to clinic on 05/31/17 with clinical and laboratory evidence of dehydration in the presence of 1 void in the prior 24 hours and elevated creatinine, intractable nausea and vomiting, and severe acute on chronic debility and high risk of falls. Due to her extremely poor baseline functional status and acute worsening of clinical status , she was admitted for IVF, IV antiemetics, and close monitoring of clinical status. She had improvement in her hydration status, but was noted to have extremely poor functional status and worsening bullous pemphigoid. Dermatology was consulted and prednisone was increased to 60mg daily with plan to decrease by 10mg weekly until at 40mg daily at which point recommend follow-up prior to further decrease. Nutrition was consulted and assisted with counseling regarding increased protein intake and she was given an infusion of albumin as well. Physical therapy recommended ongoing rehabilitation and after extensive care management assistance throughout her acute stay, was admitted to [facility] for rehabilitation. - Discharge Data Discharge Date: 06/23/17 Discharge Disposition: Home, Self-Care 01 Condition: Good - Patient Summary/Data Complications: No major complications throughout her hospital stay although she did have diffuse ongoing lesions due to her bullous pemphigoid. She did have considerable protein calorie malnutrition with hypoalbuminemia requiring albumin transfusion at one time. She did have significant depression however that improved with medication. She never became hemodynamically unstable Consults: Consultations 06/07/17 15:59 Consult to Dietary [Consult to Vacuum Worker] [CONS] Routine Consult to Physical Therapy [PT Evaluation and Treatment] [CONS] Routine Consult to Obstetrics Scrub Nurse [CONS] Routine Hospital Course: Patient's hospital went quite well. She continued with steroids with taper down treatment without sequela. Her lesions due to her bullous pemphigoid seemed to improve and she had approximately 50% improvement with only one new blister on her right arm prior to discharge. Dermatology was consulted and prednisone was increased to 60mg daily with plan to decrease by 10mg weekly until at 40mg daily at which point recommend follow-up prior to further decrease which will be further determined in [place]. She remained in physical therapy and did quite well due to her deconditioning. She did have significant protein calorie malnutrition with hypoalbuminemia requiring albumin infusion at one time. Physical therapy, social media developer, nutritional therapy consultations were initiated. Affect was very poor on early admission however this improved greatly by the time she was discharged. She has great family support. Her Abilify was increased and we initiated Lexapro which helped tremendously. Increase her levothyroxine to 100 g due to TSH elevation. She never became hemodynamically unstable. - Patient Instructions Diet: Regular Diet as Tolerated Activity: As Tolerated, Cough & Deep Breathe Driving: Do Not Drive Showering/Bathing: May Shower Wound/Incision Care: Keep Operative Site/Wound Site Clean and Dry Notify Provider of: Fever, Increased Pain, Nausea and/or Vomiting Other/Special Instructions: Cover wounds for the flight - Discharge Plan Prescriptions/Med Rec: Acetaminophen [Tylenol Extra Strength] 500 mg PO Q4HR #180 tablet traMADol HCl [Tramadol HCl] 50 mg PO Q6HR PRN #60 tablet PRN Reason: Pain Apixaban [Eliquis] 5 mg PO BID #60 tablet ARIPiprazole [Abilify] 10 mg PO QAM #60 tablet Escitalopram [Lexapro] 10 mg PO DAILY #30 tablet Gentamicin Sulfate 7 gm TOP DAILY #2 tube Levothyroxine [Synthroid] 100 mcg PO ACBREAKFAST #30 tablet LORazepam [Ativan] 0.5 mg PO BID PRN #30 tablet PRN Reason: Anxiety Metoprolol Succinate [Toprol XL] 12.5 mg PO BEDTIME #15 tab.er Minocycline [Minocin] 100 mg PO BID #60 cap Mupirocin Oint [Bactroban Oint] 10 gm TOP BEDTIME #3 tube Nystatin [Nystatin Ointment] 0.5 gm TOP 0900,2100 #1 tube Ondansetron [Zofran ODT] 4 mg PO Q6H PRN #24 tab.dis PRN Reason: Nausea/Vomiting Prednisone [IJD: predniSONE] 40 mg PO WITHBREAKFAST #60 tablet Ranitidine [Zantac] 150 mg PO DAILY #30 tablet Home Medications: Home Meds Albuterol Sulfate [Albuterol Sulfate HFA] 1 - 2 puff INH Q4HR PRN 12/09/14 [ History] Ipratropium/Albuterol Sulfate [Iprat-Albut 0.5-3(2.5) MG/3 ML] 3 ml NEB Q4H PRN 12/09/14 [History] hydrOXYzine HCl [Atarax] 25 mg PO Q6H PRN 04/25/17 [History] LORazepam 0.5 mg PO BID PRN 05/31/17 [History] Loratadine 10 mg PO DAILY 05/31/17 [History] Niacinamide [Niacin] 500 mg PO DAILY 05/31/17 [History] Sennosides/Docusate Sodium [Senna-Docusate Sodium] 1 each PO BID PRN 05/31/17 [ History] ARIPiprazole [Abilify] 10 mg PO QAM #60 tablet 06/22/17 [Rx] Acetaminophen [Tylenol Extra Strength] 500 mg PO Q4HR #180 tablet 06/22/17 [Rx] Alum Hydroxide/Mag Hydroxide [Mag-Al Susp] 30 ml PO BIDAC #0 cup 06/22/17 [Rx] Apixaban [Eliquis] 5 mg PO BID #60 tablet 06/22/17 [Rx] Calcium Citrate/Vitamin D3 [Calcium Citrate + D] 2 tab PO BID@1200,1800 #0 tablet 06/22/17 [Rx] Escitalopram [Lexapro] 10 mg PO DAILY #30 tablet 06/22/17 [Rx] Gentamicin Sulfate 7 gm TOP DAILY #2 tube 06/22/17 [Rx] LORazepam [Ativan] 0.5 mg PO BID PRN #30 tablet 06/22/17 [Rx] Levothyroxine [Synthroid] 100 mcg PO ACBREAKFAST #30 tablet 06/22/17 [Rx] Lidocaine 2% [Xylocaine 2% Viscous] 30 ml PO BIDAC #0 cup 06/22/17 [Rx] Melatonin 3 mg PO BEDTIME tablet 06/22/17 [Rx] Metoprolol Succinate [Toprol XL] 12.5 mg PO BEDTIME #15 tab.er 06/22/17 [Rx] Minocycline [Minocin] 100 mg PO BID #60 cap 06/22/17 [Rx] Mupirocin Oint [Bactroban Oint] 10 gm TOP BEDTIME #3 tube 06/22/17 [Rx] Nystatin [Nystatin Ointment] 0.5 gm TOP 0900,2100 #1 tube 06/22/17 [Rx] Ondansetron [Zofran ODT] 4 mg PO Q6H PRN #24 tab.dis 06/22/17 [Rx] Prednisone [IJD: predniSONE] 40 mg PO WITHBREAKFAST #60 tablet 06/22/17 [Rx] Ranitidine [Zantac] 150 mg PO DAILY #30 tablet 06/22/17 [Rx] diphenhydrAMINE [Benadryl] 12.5 mg PO BIDAC #0 cup 06/22/17 [Rx] traMADol HCl [Tramadol HCl] 50 mg PO Q6HR PRN #60 tablet 06/22/17 [Rx] - Discharge Summary/Plan Comment DC Time >30 min.: Yes Discharge Summary/Plan Comment: Patient continued with physical therapy the day prior to her discharge. She was eventually discharged in the care of her daughter and moved [place] in the care of her daughter Brianne. Thank you very much for physical therapist social media developer support, nutritional therapist, pharmacist for all the work in coordinating care this patient. Final diagnosis Bullous pemphigoid: Protein calorie malnutrition and hypoalbuminemia: Depression, major/Dementia: Chronic conditions: COPD: Atrial fibrillation, paroxysmal: GERD: Stable. Constipation: Hypothyroidism: Anemia of chronic disease: Obesity: Seasonal allergies: - Patient Data Vitals - Most Recent: Last Vital Signs Temp 98.2 F 06/22/17 05:50 Pulse 78 06/22/17 20:13 Resp 16 06/22/17 05:50 BP 95/58 L 06/22/17 20:13 Pulse Ox 95 06/22/17 08:35 Weight - Most Recent: 204 lb 8 oz Med Orders - Current: Current Medications Discontinued Medications Acetaminophen (Tylenol Extra Strength) 500 mg PO Q4HR [facility] Last Admin: 06/23/17 02:07 Dose: 500 mg Albuterol/Ipratropium (Duoneb 3.0-0.5 Mg/3 Ml) 3 ml NEB Q4H PRN PRN Reason: Shortness of Breath Apixaban (Eliquis) 5 mg PO BID [facility] Last Admin: 06/22/17 20:08 Dose: 5 mg Aripiprazole (Abilify) 10 mg PO QAM [facility] Last Admin: 06/22/17 08:11 Dose: 10 mg Calcium Citrate (Calcium Citrate + D) 2 tab PO BID [facility] Last Admin: 06/08/17 08:07 Dose: 2 tab Calcium Citrate (Calcium Citrate + D) 2 tab PO BID@1200,1800 [facility] Last Admin: 06/22/17 17:37 Dose: 2 tab Al Hydroxide/Mg Hydroxide 40 ml/ Diphenhydramine HCl 12.5 mg/ Lidocaine HCl 40 ml 0 ml PO BIDAC [facility] Last Admin: 06/21/17 07:52 Dose: 15 ml Al Hydroxide/Mg Hydroxide 30 ml/ Diphenhydramine HCl 12.5 mg/ Lidocaine HCl 30 ml 0 ml PO BIDAC OSIEL Al Hydroxide/Mg Hydroxide 30 ml/ Diphenhydramine HCl 12.5 mg/ Lidocaine HCl 30 ml 0 ml PO BIDAC [facility] Last Admin: 06/22/17 17:36 Dose: 15 ml Escitalopram Oxalate (Lexapro) 10 mg PO DAILY [facility] Last Admin: 06/22/17 08:11 Dose: 10 mg Gentamicin Sulfate (Gentamicin 0.1%) 0 gm TOP DAILY [facility] Last Admin: 06/22/17 08:11 Dose: 1 applic Hydroxyzine HCl (Atarax) 25 mg PO Q6H PRN PRN Reason: Itching Last Admin: 06/20/17 02:53 Dose: 25 mg Lactobacillus Acidophilus/Rhamnosus (Multi-[place] Plus) 1 cap PO DAILY@1200 [facility] Last Admin: 06/22/17 12:39 Dose: 1 cap Levothyroxine Sodium (Synthroid) 100 mcg PO ACBREAKFAST [facility] Last Admin: 06/22/17 07:42 Dose: 100 mcg Loratadine (Claritin) 10 mg PO DAILY [facility] Last Admin: 06/22/17 08:11 Dose: 10 mg Lorazepam (Ativan) 0.5 mg PO BID PRN PRN Reason: Anxiety Last Admin: 06/22/17 08:10 Dose: 0.5 mg Melatonin (Melatonin) 3 mg PO BEDTIME [facility] Last Admin: 06/22/17 20:07 Dose: 3 mg Metoprolol Succinate (Toprol Xl) 12.5 mg PO BEDTIME [facility] Last Admin: 06/22/17 20:13 Dose: Not Given Minocycline HCl (Minocin) 100 mg PO BID [facility] Last Admin: 06/22/17 20:08 Dose: 100 mg Mupirocin (Bactroban Oint) 0 gm TOP .STK-MED ONE Stop: 06/07/17 16:00 Mupirocin (Bactroban Oint) 1 gm TOP BEDTIME [facility] Last Admin: 06/22/17 20:06 Dose: 1 applic Niacin (Niacin) 500 mg PO DAILY [facility] Last Admin: 06/22/17 08:11 Dose: 500 mg Nystatin (Nystatin Ointment) 1 gm TOP 0900,2100 [facility] Nystatin (Nystatin Ointment) 0 gm TOP 0900,2100 [facility] Last Admin: 06/22/17 20:08 Dose: 1 applic Ondansetron HCl (Zofran Odt) 4 mg PO Q6H PRN PRN Reason: Nausea/Vomiting Last Admin: 06/21/17 09:58 Dose: 4 mg Patient's Own Medication* Minocycline 100 Mg * * 1 each PO BID [facility] Prednisone (Prednisone) 50 mg PO WITHBREAKFAST [facility] Stop: 06/16/17 08:01 Last Admin: 06/16/17 08:20 Dose: 50 mg Prednisone (Prednisone) 40 mg PO WITHBREAKFAST [facility] Last Admin: 06/22/17 08:11 Dose: 40 mg Prednisone (Prednisone) 60 mg PO WITHBREAKFAST [facility] Stop: 06/09/17 08:01 Last Admin: 06/09/17 08:39 Dose: 60 mg Ranitidine HCl (Zantac) 150 mg PO DAILY [facility] Last Admin: 06/22/17 08:11 Dose: 150 mg Senna/Docusate Sodium (Senna Plus) 1 tab PO BID PRN PRN Reason: Constipation Tramadol HCl (Ultram) 50 mg PO Q6HR PRN PRN Reason: Pain Last Admin: 06/22/17 22:17 Dose: 50 mg *Q Meaningful Use (DIS) - VTE *Q VTE Criteria *Q: - Stroke *Q Stroke Criteria *Q: - AMI *Q AMI Criteria *Q:
== END 2017-06-23 02:00 | disposition home or self-care (01) | DRG 596 ==
LOC: KA.MS 15:55
PROVIDERS: ADMIT Family Medicine; ATTEND Family Medicine
DX: L12.0 Bullous pemphigoid (principal); E46 Unspecified protein-calorie malnutrition; E88.09 Other disorders of plasma-protein metabolism, not elsewhere classified; F32.9 Major depressive disorder, single episode, unspecified; F03.90 Unspecified dementia, unspecified severity, without behavioral disturbance, psychotic disturbance, mood disturbance, and anxiety; J44.9 Chronic obstructive pulmonary disease, unspecified; I48.91 Unspecified atrial fibrillation; E03.9 Hypothyroidism, unspecified; D63.8 Anemia in other chronic diseases classified elsewhere; Z88.8 Allergy status to other drugs, medicaments and biological substances; Z79.899 Other long term (current) drug therapy
CPT/HCPCS: 36415; 80053; 82962; 85025; 97110-GP; 97162-GP; 97530-GP; A9270-GY